=== PATIENT | female | born 1955 | race African-American/Black ===

== ENCOUNTER 2019-02-25 15:15 | Inpatient (IN) | payer OTHER ==
[2019-02-25 16:06] VITALS: BMI 26.0
--- NOTE | 2019-02-25 17:56 | HP ---
CIWA Score Nausea/Vomitin-No Nausea/No Vomiting Muscle Tremors: 4-Moderate,w/Arms Extend Anxiety: 2 Agitation: 1-Slight > Activity Paroxysmal Sweats: 2 Orientation: 0-Oriented Tacttile Disturbances: 1-Very Mild Itch/Numbness Auditory Disturbances: 0-None Visual Disturbances: 0-None Headache: 2-Mild CIWA-Ar Total Score: 12 - Admission Criteria OASAS Guidelines: Admission for Medically Managed Detox: Requires at least one of the followin. CIWA greater than 12 2. Seizures within the past 24 hours 3. Delirium tremens within the past 24 hours 4. Hallucinations within the past 24 hours 5. Acute intervention needed for co occurring medical disorder 6. Acute intervention needed for co occurring psychiatric disorder 7. Severe withdrawal that cannot be handled at a lower level of care (continued vomiting, continued diarrhea, abnormal vital signs) requiring intravenous medication and/or fluids 8. Admitting History and Physical - Admission History Source: Patient Limitations to Obtaining History: No Limitations - Past Medical History Cardiovascular: Yes: HTN Pulmonary: Yes: Asthma ...LMP: 01/14/00 Psych: Yes: Addictions - Past Surgical History Past Surgical History: Yes: - Smoking History Smoking history: Current every day smoker Have you smoked in the past 12 months: Yes Aproximately how many cigarettes per day: 20 - Alcohol/Substance Use Hx Alcohol Use: Yes History of Substance Use: reports: Cocaine, Heroin Admission [facility] Chief Complaint: alcohol abuse Allergies/Adverse Reactions: Allergies Allergy/AdvReac Type Severity Reaction Status Date / Time shellfish derived Allergy Severe Rash Verified 02/25/19 15:47 No Known Drug Allergies Allergy Verified 02/25/19 15:47 History of Present Illness: 63 y.o. F PMH asthma, HTN. Patient is in a methadone program at [facility] but has not picked up in 2 days. EtOH: daily use. Drinks 1 pint vodka daily. Last drink yesterday 1/2 pint vodka. Has been drinking heavily since age 25. Has never passed out from drinking or had a withdrawal seizure. Crack cocaine: daily use. smokes. Uses ~$100 / day. Has been using for 10 yrs. Heroin: Uses "now and again, 1 bag or so". Snorts; has used IV in the past but does not use IV anymore. Benzos: denies use although + in urine Cigarettes: daily, 7 cigarettes per day since age 18 PSH: C- sxn Social hx: homeless. Not currently working, on SSI All: NKDA. Food: shellfish Meds: norvasc, albuterol inhaler prn Exam Limitations: No Limitations - Ebola screening Have you traveled outside of the country in the last 21 days: No Have you had contact with anyone from an Ebola affected area: No Do you have a fever: No - Review of Systems Constitutional: Chills EENT: reports: No Symptoms Reported Respiratory: reports: No Symptoms reported Cardiac: reports: No Symptoms Reported GI: reports: No Symptoms Reported Musculoskeletal: reports: No Symptoms Reported Integumentary: reports: No Symptoms Reported Neuro: reports: No Symptoms reported Endocrine: reports: No Symptoms Reported Hematology: reports: No Symptoms Reported Psychiatric: reports: No Sypmtoms Reported, Mood/Affect Appropiate, Orientated x3 Patient History - Patient Medical History Hx Anemia: Yes (HX IN THE PAST) Hx Asthma: Yes Hx Chronic Obstructive Pulmonary Disease (COPD): No Hx Cancer: No Hx Cardiac Disorders: No Hx Congestive Heart Failure: No Hx Hypertension: Yes (on meds.) Hx Hypercholesterolemia: Yes (on med-LIPITOR IN THE PAST) Hx Pacemaker: No HX Cerebrovascular Accident: No Hx Seizures: No Hx Dementia: No Hx Diabetes: No Hx Gastrointestinal Disorders: No Hx Liver Disease: No Hx Genitourinary Disorders: No Hx Sexually Transmitted Disorders: No Hx Renal Disease (ESRD): No Hx Thyroid Disease: No Hx Human Immunodeficiency Virus (HIV): No (NEGATIVE HX) Hx Hepatitis C: No Hx Depression: No Hx Suicide Attempt: No Hx Bipolar Disorder: No Hx Schizophrenia: No - Patient Surgical History Past Surgical History: Yes Hx Neurologic Surgery: No Hx Cataract Extraction: No Hx Cardiac Surgery: No Hx Lung Surgery: No Hx Breast Surgery: No Hx Breast Biopsy: No Hx Abdominal Surgery: No Hx Appendectomy: No Hx Cholecystectomy: No Hx Genitourinary Surgery: No Hx Section: Yes (X 1 IN 1985) Hx Orthopedic Surgery: No Hx Hysterectomy: No Anesthesia Reaction: No - PPD History Date: 09/11/15 Results: 0 mm - Reproductive History Last Menstrual Period: 01/14/00 - Smoking Cessation Smoking history: Current every day smoker Have you smoked in the past 12 months: Yes Aproximately how many cigarettes per day: 7 Cigars Per Day: 0 Hx Chewing Tobacco Use: No Initiated information on smoking cessation: Yes 'Breaking Loose' booklet given: 02/25/19 - Substance & Tx. History Hx Alcohol Use: Yes Substance Use Type: Alcohol, Cocaine, Heroin, Opiates - Substances abused Alcohol Substance route: Oral Frequency: Daily Amount used: 1 pint vodka Age of first use: 14 Date of last use: 02/24/19 Cocaine Substance route: Smoking Frequency: Daily Amount used: $100 Age of first use: 22 Date of last use: 02/24/19 Crack Substance route: Inhalation Frequency: Daily Amount used: $100 Age of first use: 22 Date of last use: 02/24/19 Admission Physical Exam [facility] - Vital Signs Vital Signs: Vital Signs - 24 hr 02/25/19 02/25/19 15:59 16:54 Temperature 98.4 F 98.4 F Pulse Rate 66 66 Respiratory 18 18 Rate Blood Pressure 125/85 125/85 - Physical General Appearance: Yes: No Apparent Distress, Tremorous, Anxious HEENTM: Yes: Normal ENT Inspection, Normocephalic, Other (miosis) Respiratory: Yes: Lungs Clear, Normal Breath Sounds, No Respiratory Distress, No Accessory Muscle Use Neck: Yes: No masses,lesions,Nodules Cardiology: Yes: Regular Rhythm, Regular Rate, S1, S2 Abdominal: Yes: Normal Bowel Sounds, Non Tender, Soft Musculoskeletal: Yes: Within Normal Limits Extremities: Yes: Normal Inspection, Normal Range of Motion Neurological: Yes: Fully Oriented, Alert, Normal Mood/Affect Integumentary: Yes: Other (bruise to R knee) Lymphatic: Yes: Within Normal Limits - Diagnostic (1) Alcohol dependence with uncomplicated withdrawal Current Visit: No Status: Acute (2) Cocaine dependence Current Visit: No Status: Chronic Qualifiers: Substance use status: uncomplicated Qualified Code(s): F14.20 - Cocaine dependence, uncomplicated (3) Asthma Current Visit: No Status: Chronic Qualifiers: Asthma severity: mild intermittent Asthma complication type: with status asthmaticus (4) HTN (hypertension) Current Visit: No Status: Chronic Qualifiers: Hypertension type: essential hypertension Qualified Code(s): I10 - Essential (primary) hypertension Cleared for Admission [facility] - Detox or Rehab [facility] Level of Care: Medically Supervised Detox Regimen/Protocol: Librium Screened but not Admitted - Documentation of Visit Screened but not Admitted: No Breathalyzer - Breathalyzer Breathalyzer: 0 Urine Drug Screen - Test Device Lot number: [id number] Expiration date: 11/13/20 - Control Is test valid?: Yes - Results Drug screen NEGATIVE: No Urine drug screen results: KAMLESH-Cocaine, MTD-Methadone, BZO-Benzodiazepines Inpatient Rehab Admission - Rehab Decision to Admit Inpatient rehab admission?: No
--- NOTE | 2019-02-25 18:05 | PN ---
"Teaching Attending Note Name of Resident: Jade Del Toro ATTENDING PHYSICIAN STATEMENT I saw and evaluated the patient. I reviewed the resident's note and discussed the case with the resident. I agree with the resident's findings and plan as documented. SUBJECTIVE: 63 y.o. female here for etoh detox , reports 1 pint vodka daily since age 25 , denies w/d seizures, blackouts claims she has tremors if not drinking , latest use yesterday. cocaine : 100 $ /day via smoking . heroin : reports intermittent use currently , on MMTP latest dosed 2 days ago per pt, pending verification. benzo - denies use (see below) upon further inquiry states she was given rx for Librium @ [facility]. tobacco : 7 cigarettes/ day PMH asthma, HTN. PSH: C-sx OBJECTIVE: wnwd , drowsy , poor historian , awakened by verbal stimuli . This report was requested by: Madeline Montanez | Reference #: [id number] Others' Prescriptions Patient Name: Joellen Jones Date: 1955 Address: [place] [address] Sex: Female Rx Written Rx Dispensed Drug Quantity Days Supply Prescriber Name 02/20/2019 02/21/2019 chlordiazepoxide 25 mg capsule 8 2 Leo Zazueta 11/19/2018 11/19/2018 chlordiazepoxide 25 mg capsule 8 2 Leo Zazueta 07/31/2018 08/01/2018 chlordiazepoxide 25 mg capsule 8 2 Leo Zazueta Vital Signs - 24 hr 02/25/19 02/25/19 15:59 16:54 Temperature 98.4 F 98.4 F Pulse Rate 66 66 Respiratory 18 18 Rate Blood Pressure 125/85 125/85 ASSESSMENT AND PLAN: Alcohol use disorder - Librium taper Opioid dependence on agonist therapy - pending dose verification Cocaine dependence Nicotine dependence - smoking cessation counseling."
[2019-02-25] MEDS ORDERED: MENTHOL/PHENOL 1 EACH UD MM PRN (18:29)
[2019-02-25] MEDS ORDERED: MELATONIN 5 MG TABLETS PO PRN (18:29)
[2019-02-25] MEDS ORDERED: IBUPROFEN 400 MG TABLET (FP) PO PRN (18:29)
[2019-02-25] MEDS ORDERED: MAGNESIUM HYDROX 2400MG/30ML ORAL SUSPENSION 30 ML CUP PO PRN (18:29)
[2019-02-25] MEDS ORDERED: BISMUTH SUBSALICYLATE 524 MG/30 ML UD PO PRN (18:29)
[2019-02-25] MEDS ORDERED: MAG HYDROX/AL HYDROX/SIMETH 30 ML UNIT-DOSE CUP PO PRN (18:29)
[2019-02-25] MEDS ORDERED: chlordiazePOXIDE HCL 10 MG CAPSULE PO PRN (18:29)
[2019-02-25] MEDS ORDERED: MAGNESIUM CITRATE 300 ML BOTTLE PO PRN (18:29)
[2019-02-25] MEDS ORDERED: ACETAMINOPHEN 325 MG TABLET (FP) PO PRN ×2 (18:29)
[2019-02-25] MEDS ORDERED: ALBUTEROL SO4 0.083% IH SOL 2.5 MG/3 ML VIAL.NEB. NEB PRN (19:51)
[2019-02-25] MEDS: chlordiazePOXIDE HCL 25 MG CAPSULE PO SCH (20:54)
[2019-02-25] MEDS: METHOCARBAMOL 500 MG TABLET PO PRN (20:54)
[2019-02-25] MEDS: hydrOXYzine PAMOATE 25 MG CAPSULE (FP) PO PRN (20:59)
[2019-02-25] MEDS: THIAMINE HCL 100 MG TABLET (FP) PO SCH (22:26)
[2019-02-26] MEDS: chlordiazePOXIDE HCL 25 MG CAPSULE PO SCH ×4 (06:28→22:42)
[2019-02-26 09:45] LABS: HEMOGLOBIN 13.6 GM/dL (10.7-15.3); MCH 28.6 pg (25.7-33.7); MEAN PLT VOLUME 9.5 fl (7.5-11.1); PLATELET COUNT 250 K/MM3 (134-434); RBC 4.76 M/mm3 (3.60-5.2); RDW 15.3 % (11.6-15.6); WHITE BLOOD COUNT 4.3 K/mm3 (4.0-10.0)
[2019-02-26] MEDS ORDERED: METHADONE HCL 10 MG TABLET PO ONE (09:59)
[2019-02-26] MEDS ORDERED: LIDOCAINE 5% TOPICAL PATCH TP ONE (10:07)
[2019-02-26] MEDS ORDERED: ALBUTEROL SO4 8 GM HFA INHALER IH PRN (10:09)
[2019-02-26] MEDS ORDERED: IBUPROFEN 400 MG TABLET (FP) PO PRN (10:09)
[2019-02-26 10:24] LABS: ALBUMIN 3.4 g/dl (3.4-5.0); BILIRUBIN,TOTAL 0.6 mg/dL (0.2-1); BLOOD UREA NITROGEN 14.8 mg/dL (7-18); CALCIUM 9.3 mg/dL (8.5-10.1); CREATININE 0.8 mg/dL (0.55-1.3); POTASSIUM 4.1 mmol/L (3.5-5.1); TOT PROT 7.6 g/dl (6.4-8.2)
[2019-02-26] MEDS ORDERED: METHADONE 80 MG, METHADONE 10 MG, METHADONE 5 MG PO ONE (10:35)
[2019-02-26] MEDS ORDERED: METHADONE HCL 10 MG TABLET ONE (10:42)
[2019-02-26] MEDS: PRENATAL VITAMINS W/ FOLIC ACID TABLET (FP) PO SCH (10:42)
[2019-02-26] MEDS ORDERED: METHADONE HCL 5 MG TABLET ONE (10:43)
[2019-02-26] MEDS ORDERED: METHADONE HCL 40 MG DISPERSABLE TABLET ONE (10:43)
[2019-02-26] MEDS: METHOCARBAMOL 500 MG TABLET PO PRN (10:44)
--- NOTE | 2019-02-26 13:04 | PN ---
S CIWA - CIWA Score Nausea/Vomitin-No Nausea/No Vomiting Muscle Tremors: 4-Moderate,w/Arms Extend Anxiety: 4-Mod. Anxious/Guarded Agitation: 4-Moderately Restless Paroxysmal Sweats: 3 Orientation: 0-Oriented Tacttile Disturbances: 0-None Auditory Disturbances: 0-None Visual Disturbances: 0-None Headache: 1-Very Mild CIWA-Ar Total Score: 16 BHS Progress Note (SOAP) Subjective: sweats shakes interrupted sleep irritable anxiety body aches a two day detox does not work for me and two days is not enough for the amount of alcohol i drink Objective: 02/26/19 13:00 Vital Signs Temperature 98.4 F 02/26/19 09:23 Pulse Rate 71 02/26/19 09:23 Respiratory Rate 18 02/26/19 09:23 Blood Pressure 121/71 02/26/19 09:23 O2 Sat by Pulse Oximetry (%) Laboratory Tests 02/26/19 02/26/19 02/26/19 07:10 07:10 07:10 WBC 4.3 RBC 4.76 Hgb 13.6 Hct 40.0 MCV 84.0 MCH 28.6 MCHC 34.0 RDW 15.3 Plt Count 250 MPV 9.5 Sodium 140 Potassium 4.1 Chloride 106 Carbon Dioxide 30 Anion Gap 4 L BUN 14.8 Creatinine 0.8 Est GFR (CKD-EPI)AfAm 92.22 Est GFR (CKD-EPI)NonAf 79.57 Random Glucose 101 Calcium 9.3 Total Bilirubin 0.6 AST 41 H ALT 41 Alkaline Phosphatase 101 Total Protein 7.6 Albumin 3.4 RPR Titer Nonreactive labs noted aaox3 ambulating no acute distress Assessment: 02/26/19 13:03 withdrawals noted Plan: d/c two day taper and increased librium taper appropriately. increase fluids
[2019-02-26] MEDS: chlordiazePOXIDE HCL 25 MG CAPSULE PO PRN (18:52)
[2019-02-26] MEDS: THIAMINE HCL 100 MG TABLET (FP) PO SCH (22:41)
[2019-02-26] MEDS: LIDOCAINE PATCH REMOVAL MC SCH (22:41)
[2019-02-26] MEDS: hydrOXYzine PAMOATE 25 MG CAPSULE (FP) PO PRN (22:45)
[2019-02-27] MEDS: chlordiazePOXIDE HCL 25 MG CAPSULE PO PRN (03:03)
[2019-02-27] MEDS ORDERED: chlordiazePOXIDE HCL 10 MG CAPSULE PO SCH (05:00)
[2019-02-27] MEDS: chlordiazePOXIDE HCL 25 MG CAPSULE PO SCH ×4 (05:16→22:35)
[2019-02-27] MEDS ORDERED: METHADONE HCL 10 MG TABLET ONE ×2 (05:17→05:21)
[2019-02-27] MEDS: METHADONE 80 MG, METHADONE 10 MG, METHADONE 5 MG PO SCH (05:18)
[2019-02-27] MEDS ORDERED: METHADONE HCL 40 MG DISPERSABLE TABLET ONE ×2 (05:18→05:21)
[2019-02-27] MEDS ORDERED: METHADONE HCL 5 MG TABLET ONE (05:22)
[2019-02-27] MEDS ORDERED: METHADONE HCL 10 MG TABLET PO SCH (06:00)
[2019-02-27] MEDS: PRENATAL VITAMINS W/ FOLIC ACID TABLET (FP) PO SCH (10:30)
[2019-02-27] MEDS: METHOCARBAMOL 500 MG TABLET PO PRN (10:31)
[2019-02-27] MEDS: IBUPROFEN 400 MG TABLET (FP) PO PRN (10:34)
--- NOTE | 2019-02-27 12:42 | PN ---
S CIWA - CIWA Score Nausea/Vomitin-No Nausea/No Vomiting Muscle Tremors: 3 Anxiety: 1-Mildly Anxious Agitation: 2 Paroxysmal Sweats: 2 Orientation: 0-Oriented Tacttile Disturbances: 0-None Auditory Disturbances: 0-None Visual Disturbances: 0-None Headache: 0-None Present CIWA-Ar Total Score: 8 S Progress Note (SOAP) Subjective: sweats low back pain interrupted sleep agitation Objective: 02/27/19 12:41 Vital Signs Temperature 98.1 F 02/27/19 09:58 Pulse Rate 60 02/27/19 09:58 Respiratory Rate 18 02/27/19 09:58 Blood Pressure 130/70 02/27/19 09:58 O2 Sat by Pulse Oximetry (%) Laboratory Tests 02/26/19 02/26/19 02/26/19 07:10 07:10 07:10 WBC 4.3 RBC 4.76 Hgb 13.6 Hct 40.0 MCV 84.0 MCH 28.6 MCHC 34.0 RDW 15.3 Plt Count 250 MPV 9.5 Sodium 140 Potassium 4.1 Chloride 106 Carbon Dioxide 30 Anion Gap 4 L BUN 14.8 Creatinine 0.8 Est GFR (CKD-EPI)AfAm 92.22 Est GFR (CKD-EPI)NonAf 79.57 Random Glucose 101 Calcium 9.3 Total Bilirubin 0.6 AST 41 H ALT 41 Alkaline Phosphatase 101 Total Protein 7.6 Albumin 3.4 RPR Titer Nonreactive labs noted aaox3 ambulating no acute distress Assessment: 02/27/19 12:42 withdrawals Plan: continue detox increase fluids
[2019-02-27] MEDS: THIAMINE HCL 100 MG TABLET (FP) PO SCH (22:35)
[2019-02-27] MEDS: LIDOCAINE PATCH REMOVAL MC SCH (22:36)
[2019-02-28] MEDS ORDERED: chlordiazePOXIDE HCL 25 MG CAPSULE PO SCH (05:00)
[2019-02-28] MEDS ORDERED: METHADONE HCL 10 MG TABLET PO ONE (06:00)
[2019-02-28] MEDS ORDERED: METHADONE HCL 40 MG DISPERSABLE TABLET ONE (06:41)
[2019-02-28] MEDS ORDERED: METHADONE HCL 10 MG TABLET ONE (06:41)
[2019-02-28] MEDS ORDERED: METHADONE HCL 5 MG TABLET ONE (06:42)
[2019-02-28] MEDS: METHADONE 80 MG, METHADONE 10 MG, METHADONE 5 MG PO SCH (06:43)
[2019-02-28] MEDS: METHOCARBAMOL 500 MG TABLET PO PRN ×3 (06:43→22:42)
[2019-02-28] MEDS ORDERED: chlordiazePOXIDE 5 MG CAPSULE PO SCH (09:58)
[2019-02-28] MEDS: PRENATAL VITAMINS W/ FOLIC ACID TABLET (FP) PO SCH (10:36)
--- NOTE | 2019-02-28 13:31 | PN ---
S CIWA - CIWA Score Nausea/Vomitin-No Nausea/No Vomiting Muscle Tremors: 3 Anxiety: 1-Mildly Anxious Agitation: 0-Normal Activity Paroxysmal Sweats: No Perspiration Orientation: 0-Oriented Tacttile Disturbances: 0-None Auditory Disturbances: 0-None Visual Disturbances: 0-None Headache: 0-None Present CIWA-Ar Total Score: 4 BHS Progress Note (SOAP) Subjective: tired interrupted sleep Objective: 02/28/19 13:30 Vital Signs Temperature 98.4 F 02/28/19 10:00 Pulse Rate 79 02/28/19 10:00 Respiratory Rate 18 02/28/19 10:00 Blood Pressure 118/66 02/28/19 10:00 O2 Sat by Pulse Oximetry (%) aaox3 ambulating no acute distress Assessment: 02/28/19 13:32 mild withdrawals Plan: increase fluids modified librium taper
[2019-02-28] MEDS: THIAMINE HCL 100 MG TABLET (FP) PO SCH (22:43)
[2019-02-28] MEDS: IBUPROFEN 400 MG TABLET (FP) PO PRN (22:45)
[2019-03-01] MEDS ORDERED: chlordiazePOXIDE HCL 10 MG CAPSULE PO PRN
[2019-03-01] MEDS ORDERED: METHADONE HCL 10 MG TABLET ONE ×2 (04:30→06:08)
[2019-03-01] MEDS ORDERED: METHADONE HCL 40 MG DISPERSABLE TABLET ONE ×2 (04:31→06:08)
[2019-03-01] MEDS ORDERED: METHADONE HCL 5 MG TABLET ONE ×2 (04:31→06:09)
[2019-03-01] MEDS ORDERED: METHADONE HCL 10 MG TABLET PO ONE (06:00)
[2019-03-01] MEDS ORDERED: METHADONE 80 MG, METHADONE 20 MG, METHADONE 5 MG PO SCH (06:00)
[2019-03-01] MEDS ORDERED: METHADONE HCL 10 MG TABLET PO SCH (06:00)
[2019-03-01] MEDS: chlordiazePOXIDE HCL 10 MG CAPSULE PO SCH ×3 (06:12→17:25)
[2019-03-01] MEDS: METHOCARBAMOL 500 MG TABLET PO PRN ×2 (10:27→18:19)
[2019-03-01] MEDS: PRENATAL VITAMINS W/ FOLIC ACID TABLET (FP) PO SCH (10:27)
[2019-03-01] MEDS: LIDOCAINE 5% TOPICAL PATCH TP SCH (12:26)
--- NOTE | 2019-03-01 15:30 | PN ---
S CIWA - CIWA Score Nausea/Vomitin-No Nausea/No Vomiting Muscle Tremors: None Anxiety: 3 Agitation: 2 Paroxysmal Sweats: No Perspiration Orientation: 2-Disoriented Date<2 days Tacttile Disturbances: 0-None Auditory Disturbances: 0-None Visual Disturbances: 2-Mild Sensitivity Headache: 0-None Present CIWA-Ar Total Score: 9 BHS Progress Note (SOAP) Subjective: Anxious, Body Aches, Fatigue. Objective: PATIENT A & O X 2 (UNCERTAIN ABOUT CURRENT DAY / DATE). PATIENT OBSERVED AMBULATING ON UNIT. NO ACUTE DISTRESS. 03/01/19 15:29 Vital Signs Temperature 97.3 F L 03/01/19 14:54 Pulse Rate 70 03/01/19 14:54 Respiratory Rate 18 03/01/19 14:54 Blood Pressure 130/87 03/01/19 14:54 O2 Sat by Pulse Oximetry (%) Laboratory Tests 02/26/19 02/26/19 02/26/19 07:10 07:10 07:10 WBC 4.3 RBC 4.76 Hgb 13.6 Hct 40.0 MCV 84.0 MCH 28.6 MCHC 34.0 RDW 15.3 Plt Count 250 MPV 9.5 Sodium 140 Potassium 4.1 Chloride 106 Carbon Dioxide 30 Anion Gap 4 L BUN 14.8 Creatinine 0.8 Est GFR (CKD-EPI)AfAm 92.22 Est GFR (CKD-EPI)NonAf 79.57 Random Glucose 101 Calcium 9.3 Total Bilirubin 0.6 AST 41 H ALT 41 Alkaline Phosphatase 101 Total Protein 7.6 Albumin 3.4 RPR Titer Nonreactive LABS NOTED. Assessment: 03/01/19 15:29 WITHDRAWAL SYMPTOMS. Plan: CONTINUE DETOX. INCREASE DAILY ORAL WATER INTAKE. TOPICAL LIDODERM PATCH FOR PAIN OF LEFT KNEE.
[2019-03-01] MEDS: THIAMINE HCL 100 MG TABLET (FP) PO SCH (22:39)
[2019-03-01] MEDS: LIDOCAINE PATCH REMOVAL MC SCH (23:23)
[2019-03-02] MEDS: chlordiazePOXIDE HCL 10 MG CAPSULE PO SCH ×2 (05:10→17:37)
[2019-03-02] MEDS: PRENATAL VITAMINS W/ FOLIC ACID TABLET (FP) PO SCH (10:20)
[2019-03-02] MEDS: LIDOCAINE 5% TOPICAL PATCH TP SCH ×2 (10:20→11:44)
[2019-03-02] MEDS ORDERED: cloNIDine HCL 0.1 MG TABLET PO PRN (10:43)
[2019-03-02] MEDS: METHOCARBAMOL 500 MG TABLET PO PRN ×3 (11:39→22:48)
--- NOTE | 2019-03-02 16:35 | PN ---
[facility] CIWA - CIWA Score Nausea/Vomitin-No Nausea/No Vomiting Muscle Tremors: None Anxiety: 2 Agitation: 2 Paroxysmal Sweats: 2 Orientation: 0-Oriented Tacttile Disturbances: 0-None Auditory Disturbances: 0-None Visual Disturbances: 0-None Headache: 0-None Present CIWA-Ar Total Score: 6 BHS Progress Note (SOAP) Subjective: Tremor, chills, sweating, left knee pain, back pain (chronic, has sciatica), interrupted sleep Objective: 03/02/19 16:31 Last Vital Signs Temp Pulse Resp BP Pulse Ox 97.7 F 67 18 131/85 03/02/19 11:30 03/02/19 11:30 03/02/19 11:30 03/02/19 11:30 Elevated b/p: has htn, on medication Laboratory Tests 02/26/19 02/26/19 02/26/19 07:10 07:10 07:10 WBC 4.3 RBC 4.76 Hgb 13.6 Hct 40.0 MCV 84.0 MCH 28.6 MCHC 34.0 RDW 15.3 Plt Count 250 MPV 9.5 Sodium 140 Potassium 4.1 Chloride 106 Carbon Dioxide 30 Anion Gap 4 L BUN 14.8 Creatinine 0.8 Est GFR (CKD-EPI)AfAm 92.22 Est GFR (CKD-EPI)NonAf 79.57 Random Glucose 101 Calcium 9.3 Total Bilirubin 0.6 AST 41 H ALT 41 Alkaline Phosphatase 101 Total Protein 7.6 Albumin 3.4 RPR Titer Nonreactive Labs reviewed Assessment: 03/02/19 16:32 Withdrawal sxs Plan: Continue detox Encouraged PO water intake Lidocaine patch to left knee for knee pain, continue lidocaine patch to back for back pain Scheduled for discharge tomorrow HTN: resume clonidine prn, patient stated she takes it at home, she is aware it will only be ordered prn in which she agreed, patient previously on norvasc as well for htn
[2019-03-02] MEDS ORDERED: LIDOCAINE PATCH REMOVAL MC SCH (22:00)
[2019-03-02] MEDS: THIAMINE HCL 100 MG TABLET (FP) PO SCH (22:48)
[2019-03-02] MEDS: IBUPROFEN 400 MG TABLET (FP) PO PRN (22:48)
[2019-03-02] MEDS: LIDOCAINE PATCH REMOVAL MC SCH (23:10)
[2019-03-03] MEDS ORDERED: METHADONE HCL 5 MG TABLET ONE (04:51)
[2019-03-03] MEDS ORDERED: METHADONE HCL 40 MG DISPERSABLE TABLET ONE (04:51)
[2019-03-03] MEDS ORDERED: METHADONE HCL 10 MG TABLET ONE (04:51)
[2019-03-03] MEDS ORDERED: chlordiazePOXIDE HCL 10 MG CAPSULE PO ONE (05:00)
[2019-03-03] MEDS ORDERED: METHADONE 80 MG, METHADONE 30 MG, METHADONE 5 MG PO SCH (06:00)
[2019-03-03] MEDS ORDERED: METHADONE HCL 10 MG TABLET PO SCH (06:00)
[2019-03-03] MEDS ORDERED: METHADONE HCL 40 MG DISPERSABLE TABLET PO SCH (06:00)
--- NOTE | 2019-03-03 10:07 | DS ---
[facility] Detox Discharge Summary Admission Date: 02/25/19 Discharge Date: 03/03/19 - History Present History: Alcohol Dependence, MMTP - Physical Exam Results Vital Signs: Vital Signs Temperature 97.7 F 03/03/19 09:31 Pulse Rate 63 03/03/19 09:31 Respiratory Rate 16 03/03/19 09:31 Blood Pressure 100/71 03/03/19 09:31 O2 Sat by Pulse Oximetry (%) Pertinent Admission Physical Exam Findings: pt arrived in withdrawals Vital Signs Temperature 97.7 F 03/03/19 09:31 Pulse Rate 63 03/03/19 09:31 Respiratory Rate 16 03/03/19 09:31 Blood Pressure 100/71 03/03/19 09:31 O2 Sat by Pulse Oximetry (%) Laboratory Tests 02/26/19 02/26/19 02/26/19 07:10 07:10 07:10 WBC 4.3 RBC 4.76 Hgb 13.6 Hct 40.0 MCV 84.0 MCH 28.6 MCHC 34.0 RDW 15.3 Plt Count 250 MPV 9.5 Sodium 140 Potassium 4.1 Chloride 106 Carbon Dioxide 30 Anion Gap 4 L BUN 14.8 Creatinine 0.8 Est GFR (CKD-EPI)AfAm 92.22 Est GFR (CKD-EPI)NonAf 79.57 Random Glucose 101 Calcium 9.3 Total Bilirubin 0.6 AST 41 H ALT 41 Alkaline Phosphatase 101 Total Protein 7.6 Albumin 3.4 RPR Titer Nonreactive today pt is aaox3 ambulating no acute distress - Treatment Hospital Course: Detox Protocol Followed, Detoxed Safely, Responded well, Discharged Condition Good, Rehab Referral Accepted Patient has Accepted a Rehab Referral to: pt referred to rehab - Medication Discharge Medications: Ambulatory Orders Salmeterol/Fluticasone [Advair 500Mcg/50Mcg -] 1 inh IH BID #1 inh 06/23/13 Esomeprazole Mag Trihydrate [Nexium] 20 mg PO DAILY 09/09/15 Albuterol Sulfate Inhaler - [Ventolin HFA Inhaler -] 0 puff IH Q4HPO PRN #1 inhaler 11/17/15 Amlodipine Besylate [Norvasc -] 10 mg PO DAILY 02/25/19 cloNIDine HCL [Catapres -] 0.1 mg PO DAILY 02/25/19 - Diagnosis (1) Alcohol dependence with uncomplicated withdrawal Current Visit: No Status: Acute (2) Nicotine dependence Current Visit: No Status: Acute Qualifiers: Nicotine product type: cigarettes Substance use status: uncomplicated Qualified Code(s): F17.210 - Nicotine dependence, cigarettes, uncomplicated (3) Opioid dependence on agonist therapy Current Visit: No Status: Acute (4) Uncomplicated sedative, hypnotic or anxiolytic withdrawal Current Visit: No Status: Acute (5) Alcohol dependence Current Visit: Yes Status: Chronic Qualifiers: Substance use status: uncomplicated Qualified Code(s): F10.20 - Alcohol dependence, uncomplicated (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: No Status: Chronic (8) Asthma Current Visit: No Status: Chronic Qualifiers: Asthma severity: mild intermittent Asthma complication type: with status asthmaticus (9) Cocaine dependence Current Visit: No Status: Chronic Qualifiers: Substance use status: uncomplicated Qualified Code(s): F14.20 - Cocaine dependence, uncomplicated (10) Gastroesophageal reflux disease Current Visit: No Status: Chronic Qualifiers: Esophagitis presence: without esophagitis Qualified Code(s): K21.9 - Gastro -esophageal reflux disease without esophagitis (11) HTN (hypertension) Current Visit: No Status: Chronic Qualifiers: Hypertension type: essential hypertension Qualified Code(s): I10 - Essential (primary) hypertension (12) Hypercholesterolemia Current Visit: No Status: Chronic (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
[2019-03-03] MEDS: PRENATAL VITAMINS W/ FOLIC ACID TABLET (FP) PO SCH (10:36)
[2019-03-03] MEDS: LIDOCAINE 5% TOPICAL PATCH TP SCH (10:38)
[2019-03-03 13:36] VITALS: BP 110/73; PULSE 71; TEMP 98.2
== END 2019-03-03 03:55 | disposition home or self-care (01) | DRG 897 ==
LOC: YASAS 15:15 → Y6N 20:19
PROVIDERS: ADMIT Allergy & Immunology; ATTEND Allergy & Immunology
PROC: HZ2ZZZZ Detoxification Services for Substance Abuse Treatment (ICD-10-PCS; principal; 2019-02-25)
DX: F10.230 Alcohol dependence with withdrawal, uncomplicated (principal); F11.20 Opioid dependence, uncomplicated; F14.20 Cocaine dependence, uncomplicated; F19.280 Other psychoactive substance dependence with psychoactive substance-induced anxiety disorder; F19.282 Other psychoactive substance dependence with psychoactive substance-induced sleep disorder; J45.22 Mild intermittent asthma with status asthmaticus; F13.230 Sedative, hypnotic or anxiolytic dependence with withdrawal, uncomplicated; F17.210 Nicotine dependence, cigarettes, uncomplicated; I10 Essential (primary) hypertension; K21.9 Gastro-esophageal reflux disease without esophagitis; E78.00 Pure hypercholesterolemia, unspecified; M17.11 Unilateral primary osteoarthritis, right knee; Z86.2 Personal history of diseases of the blood and blood-forming organs and certain disorders involving the immune mechanism; Z91.013 Allergy to seafood; Z59.0 Homelessness
CPT/HCPCS: 36415; 80053; 85027; 86593

== ENCOUNTER 2019-11-10 10:30 | Inpatient (IN) | payer OTHER ==
--- NOTE | 2019-11-10 11:11 | BHS.RME ---
Substance Use & Tx History - Substance Use History Barbiturate Substance amount: 1.5 pints vodka Frequency of use: Daily Substance route: Oral Date of Last Use: 11/10/19 (4am) Cocaine-Crack Substance amount: $100 Frequency of use: Daily Substance route: Smoking Date of Last Use: 11/09/19 Nicotine Substance amount: 1/2 pack Frequency of use: Daily Substance route: Smoking Date of Last Use: 11/09/19 - Last Treatment Date of last treatment: 02/25/19-03/03/19 Treatment type: Substance Use Disorder (JOAO) Where was last treatment: Detox Physical/Psych/Mental Status - Behavior General Behavior: Decreased activity Eye Contact: Normal - Cooperativeness Cooperativeness: Cooperative - Thinking Thought Processes: Tight, Logical, Goal Directed - Physical Health Problems Is patient presently having any pain?: No Does patient presently have any injuries (include location): No Does patient currently have a fever: No Is patient : No CIWA Nausea/Vomitin-No Nausea/No Vomiting Muscle Tremors: 3 Anxiety: 2 Agitation: 2 Paroxysmal Sweats: 4-Forehead w/Sweat Beads Orientation: 0-Oriented Tacttile Disturbances: 2-Mild Itch/Numbness/Burn Auditory Disturbances: 0-None Visual Disturbances: 0-None Headache: 2-Mild CIWA-Ar Total Score: 15
--- NOTE | 2019-11-10 12:10 | HP ---
CIWA Score Nausea/Vomitin-No Nausea/No Vomiting Muscle Tremors: 3 Anxiety: 2 Agitation: 2 Paroxysmal Sweats: 4-Forehead w/Sweat Beads Orientation: 0-Oriented Tacttile Disturbances: 2-Mild Itch/Numbness/Burn Auditory Disturbances: 0-None Visual Disturbances: 0-None Headache: 2-Mild CIWA-Ar Total Score: 15 - Admission Criteria OASAS Guidelines: Admission for Medically Managed Detox: Requires at least one of the followin. CIWA greater than 12 2. Seizures within the past 24 hours 3. Delirium tremens within the past 24 hours 4. Hallucinations within the past 24 hours 5. Acute intervention needed for co occurring medical disorder 6. Acute intervention needed for co occurring psychiatric disorder 7. Severe withdrawal that cannot be handled at a lower level of care (continued vomiting, continued diarrhea, abnormal vital signs) requiring intravenous medication and/or fluids 8. Admitting History and Physical - Admission Chief Complaint: " I need to go to detox again from alcohol and crack." History of Present Illness: 64 year old female with history of alcohol dependence with withdrawal. She was last at [facility] from 02/25/10-03/03/19 when she completed detox and was discharged for aftercare. However, she relapsed immediately thereafter. Substance Use & Tx History - Substance Use History Barbiturate Substance amount: 1.5 pints vodka Frequency of use: Daily Substance route: Oral Date of Last Use: 11/10/19 (4am) Cocaine-Crack Substance amount: $100 Frequency of use: Daily Substance route: Smoking Date of Last Use: 11/09/19 Nicotine Substance amount: 1/2 pack Frequency of use: Daily Substance route: Smoking Date of Last Use: 11/09/19 PMH: Asthma, HTN Psurg: C/S x1 Psych: None She is homeless and living on the streets. She has no legal problems pending. Urine Tox: KAMLESH, MTD. 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 History Source: Patient Limitations to Obtaining History: No Limitations - Past Medical History Cardiovascular: Yes: HTN Pulmonary: Yes: Asthma ...LMP: 01/14/00 Psych: Yes: Addictions - Past Surgical History Past Surgical History: Yes: - Smoking History Smoking history: Current every day smoker Have you smoked in the past 12 months: Yes Aproximately how many cigarettes per day: 7 - Alcohol/Substance Use Hx Alcohol Use: Yes History of Substance Use: reports: Cocaine - Social History Usual Living Arrangement: Yes: Alone Do you think of yourself as: Straight/Heterosexual ADL: Independent Occupation: unemployed History of Recent Travel: No Admission [facility] Allergies/Adverse Reactions: Allergies Allergy/AdvReac Type Severity Reaction Status Date / Time shellfish derived Allergy Severe Rash Verified 11/10/19 12:03 No Known Drug Allergies Allergy Verified 11/10/19 12:03 Exam Limitations: No Limitations - Ebola screening Have you traveled outside of the country in the last 21 days: No Have you had contact with anyone from an Ebola affected area: No Have you been sick,other than usual withdrawal symptoms: No Do you have a fever: No - Review of Systems Constitutional: Diaphoresis, Unintentional Wgt. Loss EENT: reports: No Symptoms Reported Respiratory: reports: No Symptoms reported Cardiac: reports: No Symptoms Reported GI: reports: No Symptoms Reported : reports: No Symptoms Reported Musculoskeletal: reports: No Symptoms Reported Integumentary: reports: No Symptoms Reported Neuro: reports: No Symptoms reported Endocrine: reports: No Symptoms Reported Hematology: reports: No Symptoms Reported Psychiatric: reports: Judgement Intact, Mood/Affect Appropiate, Orientated x3, Agitated, Anxious Other Systems: Reviewed and Negative Patient History - Patient Medical History Hx Anemia: Yes (HX IN THE PAST) Hx Asthma: Yes Hx Chronic Obstructive Pulmonary Disease (COPD): No Hx Cancer: No Hx Cardiac Disorders: No Hx Congestive Heart Failure: No Hx Hypertension: Yes (on meds.) Hx Hypercholesterolemia: Yes (on med-LIPITOR IN THE PAST) Hx Pacemaker: No HX Cerebrovascular Accident: No Hx Seizures: No Hx Dementia: No Hx Diabetes: No Hx Gastrointestinal Disorders: No Hx Liver Disease: No Hx Genitourinary Disorders: No Hx Sexually Transmitted Disorders: No Hx Renal Disease (ESRD): No Hx Thyroid Disease: No Hx Human Immunodeficiency Virus (HIV): No (NEGATIVE HX) Hx Hepatitis C: No Hx Depression: Yes Hx Suicide Attempt: No Hx Bipolar Disorder: No Hx Schizophrenia: No - Patient Surgical History Past Surgical History: Yes Hx Neurologic Surgery: No Hx Cataract Extraction: No Hx Cardiac Surgery: No Hx Lung Surgery: No Hx Breast Surgery: No Hx Breast Biopsy: No Hx Abdominal Surgery: No Hx Appendectomy: No Hx Cholecystectomy: No Hx Genitourinary Surgery: No Hx Section: Yes (X 1 IN 1985) Hx Orthopedic Surgery: No Hx Hysterectomy: No Anesthesia Reaction: No - PPD History Previous Implant?: Yes Documented Results: Negative w/proof Implanted On Prior [facility] Admission?: Yes Date: 09/11/15 Results: 0 mm PPD to be Administered?: Yes - Reproductive History Last Menstrual Period: 01/14/00 - Smoking Cessation Smoking history: Current every day smoker Have you smoked in the past 12 months: Yes Aproximately how many cigarettes per day: 10 Cigars Per Day: 0 Hx Chewing Tobacco Use: No Initiated information on smoking cessation: Yes 'Breaking Loose' booklet given: 11/10/19 - Substances abused Alcohol Substance route: Oral Amount used: 1.5 pints vodka Age of first use: 16 Date of last use: 11/10/19 (4am) Crack Substance route: Smoking Frequency: Daily Amount used: $100 Age of first use: 32 Date of last use: 11/09/19 Admission Physical Exam [facility] - Physical General Appearance: Yes: Mild Distress, Thin, Tremorous, Irritable, Sweating, Anxious HEENTM: Yes: EOMI, Hearing grossly Normal, Normal ENT Inspection, Normocephalic, Normal Voice, TARUN, Pharynx Normal, Tm's normal Respiratory: Yes: Chest Non-Tender, Lungs Clear, Normal Breath Sounds, No Respiratory Distress, No Accessory Muscle Use Neck: Yes: No masses,lesions,Nodules, Supple, Trachea in good position Breast: Yes: Breast Exam Deferred Cardiology: Yes: Regular Rhythm, Regular Rate, S1, S2 Abdominal: Yes: Normal Bowel Sounds, Non Tender, Flat, Soft Genitourinary: Yes: Within Normal Limits Back: Yes: Normal Inspection Musculoskeletal: Yes: full range of Motion, Gait Steady, Pelvis Stable Extremities: Yes: Normal Capillary Refill, Normal Inspection, Normal Range of Motion, Non-Tender Neurological: Yes: in store marketing representative II-XII NML intact, Fully Oriented, Alert, Motor Strength 5/5, Normal Mood/Affect, Normal Response Integumentary: Yes: Normal Color, Dry, Warm Lymphatic: Yes: Within Normal Limits - Diagnostic (1) Alcohol dependence with uncomplicated withdrawal Current Visit: Yes Status: Acute (2) Nicotine dependence Current Visit: Yes Status: Acute Qualifiers: Nicotine product type: cigarettes Substance use status: uncomplicated Qualified Code(s): F17.210 - Nicotine dependence, cigarettes, uncomplicated (3) Opioid dependence on agonist therapy Current Visit: Yes Status: Acute (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 Visit: Yes Status: Chronic (6) Asthma Current Visit: Yes Status: Chronic Qualifiers: Asthma severity: mild intermittent Asthma complication type: with status asthmaticus (7) Cocaine dependence Current Visit: Yes Status: Chronic Qualifiers: Substance use status: uncomplicated Qualified Code(s): F14.20 - Cocaine dependence, uncomplicated (8) Gastroesophageal reflux disease Current Visit: Yes Status: Chronic Qualifiers: Esophagitis presence: without esophagitis Qualified Code(s): K21.9 - Gastro-esophageal reflux disease without esophagitis (9) HTN (hypertension) Current Visit: Yes Status: Chronic Qualifiers: Hypertension type: essential hypertension Qualified Code(s): I10 - Essential (primary) hypertension (10) Hypercholesterolemia Current Visit: Yes Status: Chronic (11) Osteoarthritis Current Visit: Yes Status: Chronic Qualifiers: Osteoarthritis location: knee Osteoarthritis type: primary Laterality: right Qualified Code(s): M17.11 - Unilateral primary osteoarthritis, right knee Cleared for Admission [facility] - Detox or Rehab [facility] Level of Care: Medically Managed Detox Regimen/Protocol: Librium Claeared for Rehab Admission: No Screened but not Admitted - Documentation of Visit Screened but not Admitted: No Breathalyzer - Breathalyzer Breathalyzer: 0 Urine Drug Screen - Test Device Lot number: [id number] Expiration date: 11/17/21 - Control Is test valid?: Yes - Results Drug screen NEGATIVE: No Urine drug screen results: KAMLESH-Cocaine, MTD-Methadone Inpatient Rehab Admission - Rehab Decision to Admit Inpatient rehab admission?: No
[2019-11-10] MEDS ORDERED: MAG HYDROX/AL HYDROX/SIMETH 30 ML UNIT-DOSE CUP PO PRN (12:19)
[2019-11-10] MEDS ORDERED: IBUPROFEN 400 MG TABLET (FP) PO PRN (12:19)
[2019-11-10] MEDS ORDERED: MAGNESIUM HYDROX 2400MG/30ML ORAL SUSPENSION 30 ML CUP PO PRN (12:19)
[2019-11-10] MEDS ORDERED: BISMUTH SUBSALICYLATE 262 MG/15 ML BTL PO PRN (12:19)
[2019-11-10] MEDS ORDERED: ONDANSETRON *ODT* 4 MG TABLET SL ONE (12:19)
[2019-11-10] MEDS ORDERED: MAGNESIUM CITRATE 300 ML BOTTLE PO PRN (12:19)
[2019-11-10] MEDS ORDERED: MENTHOL/PHENOL 1 EACH UD MM PRN (12:19)
[2019-11-10] MEDS ORDERED: METHOCARBAMOL 500 MG TABLET PO PRN (12:19)
[2019-11-10] MEDS ORDERED: ACETAMINOPHEN 325 MG TABLET (FP) PO PRN (12:19)
[2019-11-10] MEDS ORDERED: ALBUTEROL SO4 HFA INHALER IH PRN (12:21)
[2019-11-10 12:35] VITALS: BMI 26.5
[2019-11-10] MEDS: chlordiazePOXIDE HCL 25 MG CAPSULE PO SCH ×3 (14:18→23:08)
[2019-11-10] MEDS: NICOTINE 7 MG/24 HOURS TOPICAL PATCH TD SCH (14:18)
[2019-11-10] MEDS: PRENATAL VITAMINS W/ FOLIC ACID TABLET (FP) PO SCH (14:19)
[2019-11-10] MEDS: hydrOXYzine PAMOATE 25 MG CAPSULE (FP) PO SCH ×3 (14:19→23:17)
[2019-11-10 16:44] LABS: HEMATOCRIT 35.5 % (32.4-45.2); HEMOGLOBIN 12.2 GM/dL (10.7-15.3); MCH 29.3 pg (25.7-33.7); MCHC 34.4 g/dl (32.0-36.0); MEAN PLT VOLUME 10.1 fl (7.5-11.1); PLATELET COUNT 204 K/MM3 (134-434); RBC 4.17 M/mm3 (3.60-5.2); RDW 15.2 % (11.6-15.6); WHITE BLOOD COUNT 4.1 K/mm3 (4.0-10.0)
[2019-11-10 16:49] LABS: ALBUMIN 3.2 g/dl (3.4-5.0); BILIRUBIN,TOTAL 0.5 mg/dL (0.2-1); BLOOD UREA NITROGEN 11.5 mg/dL (7-18); CALCIUM 8.6 mg/dL (8.5-10.1); CREATININE 0.9 mg/dL (0.55-1.3); POTASSIUM 3.9 mmol/L (3.5-5.1); TOT PROT 7.1 g/dl (6.4-8.2)
[2019-11-10] MEDS: BUDESONIDE/FORMETEROL FUMARATE 160/4.5 mcg INHALER IH SCH (23:09)
[2019-11-10] MEDS: THIAMINE HCL 100 MG TABLET (FP) PO SCH (23:16)
[2019-11-10] MEDS: MELATONIN 5 MG TABLETS PO SCH (23:17)
[2019-11-11] MEDS: chlordiazePOXIDE HCL 25 MG CAPSULE PO SCH ×4 (06:51→22:31)
[2019-11-11] MEDS: hydrOXYzine PAMOATE 25 MG CAPSULE (FP) PO SCH ×2 (06:57→10:57)
--- NOTE | 2019-11-11 09:14 | PN ---
S CIWA - CIWA Score Nausea/Vomitin-No Nausea/No Vomiting Muscle Tremors: 3 Anxiety: 2 Agitation: 1-Slight > Activity Paroxysmal Sweats: 1-Minimal Palms Moist Orientation: 0-Oriented Tacttile Disturbances: 1-Very Mild Itch/Numbness Auditory Disturbances: 0-None Visual Disturbances: 2-Mild Sensitivity Headache: 2-Mild CIWA-Ar Total Score: 12 [facility] Progress Note (SOAP) Subjective: 64 years old female admitted on 11/10/19 for alcohol withdrawal sx management treating with librium detox regiment feeling tired resting in bed limited conversation with staff ms feliciano was informed that methadone 125 mg po will be administered around 10 am today and starts tomorrow will be administered around 6 am Objective: 11/11/19 09:36 Vital Signs - 24 hr 11/10/19 11/10/19 11/10/19 12:33 14:14 16:43 Temperature 98.2 F 97.8 F 97.7 F Pulse Rate 55 L 50 L 64 Respiratory 16 18 18 Rate Blood Pressure 142/92 146/82 150/93 O2 Sat by Pulse 99 99 Oximetry (%) 11/10/19 11/11/19 20:57 08:40 Temperature 97.7 F 97.3 F L Pulse Rate 55 L 54 L Respiratory 17 16 Rate Blood Pressure 148/90 141/87 O2 Sat by Pulse 99 Oximetry (%) discontinue isolation precaution bp elevation 11/11/19 09:40 resume amlodipine 10 mg po daily begin diltiazem 120 mg po daily clonidine 0.1 prn 11/11/19 09:40 Laboratory Tests 11/10/19 11/10/19 11/10/19 12:00 12:00 12:00 WBC 4.1 RBC 4.17 Hgb 12.2 Hct 35.5 MCV 85.0 MCH 29.3 MCHC 34.4 RDW 15.2 Plt Count 204 MPV 10.1 Sodium 141 Potassium 3.9 Chloride 106 Carbon Dioxide 29 Anion Gap 6 L BUN 11.5 Creatinine 0.9 Est GFR (CKD-EPI)AfAm 79.42 Est GFR (CKD-EPI)NonAf 68.53 Random Glucose 112 H Calcium 8.6 Total Bilirubin 0.5 AST 27 ALT 23 Alkaline Phosphatase 77 Total Protein 7.1 Albumin 3.2 L Syphilis Serology Reactive A* COVID-19 (CARLA) 11/10/19 13:00 WBC RBC Hgb Hct MCV MCH MCHC RDW Plt Count MPV Sodium Potassium Chloride Carbon Dioxide Anion Gap BUN Creatinine Est GFR (CKD-EPI)AfAm Est GFR (CKD-EPI)NonAf Random Glucose Calcium Total Bilirubin AST ALT Alkaline Phosphatase Total Protein Albumin Syphilis Serology COVID-19 (CARLA) Not detected reactive serology syphilis 11/11/19 09:41 rpr pending 11/11/19 09:44 fasting glucose pending Assessment: 11/11/19 09:41 alcohol withdrawal discontinue isolation precaution hypertension syphilis reactive 11/11/19 09:42 rpr pending 11/11/19 09:45 glucose serum elevation Plan: librium regiment methadone 125 mg po daily amlodipine 10 mg po daily diltiazem 120 mg po daily clonidine 0.1 mg po prn fasting glucose pending
[2019-11-11] MEDS: ACETAMINOPHEN 325 MG TABLET (FP) PO PRN (09:20)
[2019-11-11] MEDS ORDERED: METHADONE HCL 40 MG DISPERSABLE TABLET ONE (09:48)
[2019-11-11] MEDS ORDERED: METHADONE HCL 5 MG TABLET ONE (09:49)
[2019-11-11] MEDS ORDERED: cloNIDine HCL 0.1 MG TABLET PO SCH (10:00)
[2019-11-11] MEDS ORDERED: METHADONE HCL 10 MG TABLET PO ONE (10:00)
[2019-11-11] MEDS ORDERED: cloNIDine HCL 0.1 MG TABLET PO PRN (10:00)
[2019-11-11] MEDS ORDERED: METHADONE 120 MG, METHADONE 5 MG PO ONE (10:00)
[2019-11-11] MEDS: BUDESONIDE/FORMETEROL FUMARATE 160/4.5 mcg INHALER IH SCH ×2 (10:28→22:31)
[2019-11-11] MEDS: PRENATAL VITAMINS W/ FOLIC ACID TABLET (FP) PO SCH (10:28)
[2019-11-11] MEDS: amLODIPine BESYLATE 10 MG TABLET (FP) PO SCH (10:30)
[2019-11-11] MEDS: NICOTINE 7 MG/24 HOURS TOPICAL PATCH TD SCH (10:30)
[2019-11-11] MEDS: PANTOPRAZOLE 20 MG TABLET PO SCH (10:30)
[2019-11-11] MEDS ORDERED: hydrOXYzine PAMOATE 25 MG CAPSULE (FP) PO PRN (10:56)
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
[2019-11-11] MEDS: THIAMINE HCL 100 MG TABLET (FP) PO SCH (22:31)
[2019-11-11] MEDS: NICOTINE POLACRILEX 2 MG GUM BUC PRN (22:34)
[2019-11-11] MEDS: MELATONIN 5 MG TABLETS PO SCH (22:36)
[2019-11-11] MEDS: chlordiazePOXIDE HCL 25 MG CAPSULE PO PRN (23:44)
[2019-11-12] MEDS ORDERED: METHADONE HCL 40 MG DISPERSABLE TABLET ONE (05:06)
[2019-11-12] MEDS ORDERED: METHADONE HCL 5 MG TABLET ONE (05:06)
[2019-11-12] MEDS: chlordiazePOXIDE HCL 25 MG CAPSULE PO SCH ×2 (05:45→10:14)
[2019-11-12] MEDS: METHADONE 120 MG, METHADONE 5 MG PO SCH (05:45)
[2019-11-12] MEDS: NICOTINE POLACRILEX 2 MG GUM BUC PRN (05:52)
[2019-11-12] MEDS ORDERED: METHADONE HCL 10 MG TABLET PO SCH (06:00)
[2019-11-12] MEDS: PANTOPRAZOLE 20 MG TABLET PO SCH (10:14)
[2019-11-12] MEDS: PRENATAL VITAMINS W/ FOLIC ACID TABLET (FP) PO SCH (10:14)
[2019-11-12] MEDS: NICOTINE 7 MG/24 HOURS TOPICAL PATCH TD SCH (10:14)
[2019-11-12] MEDS: BUDESONIDE/FORMETEROL FUMARATE 160/4.5 mcg INHALER IH SCH ×2 (10:14→22:32)
[2019-11-12] MEDS: amLODIPine BESYLATE 10 MG TABLET (FP) PO SCH (10:14)
[2019-11-12] MEDS: ACETAMINOPHEN 325 MG TABLET (FP) PO PRN (10:15)
--- NOTE | 2019-11-12 11:29 | PN ---
S CIWA - CIWA Score Nausea/Vomitin-Mild Nausea/No Vomiting Muscle Tremors: 3 Anxiety: 2 Agitation: 0-Normal Activity Paroxysmal Sweats: 1-Minimal Palms Moist Orientation: 0-Oriented Tacttile Disturbances: 1-Very Mild Itch/Numbness Auditory Disturbances: 0-None Visual Disturbances: 2-Mild Sensitivity Headache: 0-None Present CIWA-Ar Total Score: 10 [facility] Progress Note (SOAP) Subjective: 64 years old female admitted on 11/10/19 for alcohol withdrawal sx management ms feliciano seem sleepy while eating breakfast aroused through light touch reducing librium dosage as per alcohol detox continue methadone 125 mg po daily Objective: 11/12/19 11:36 Vital Signs - 24 hr 11/11/19 11/11/19 11/11/19 12:40 16:52 20:59 Temperature 97.3 F L 97.7 F 97.5 F L Pulse Rate 65 59 L 62 Respiratory 18 18 19 Rate Blood Pressure 129/60 137/83 122/78 O2 Sat by Pulse 96 96 Oximetry (%) 11/12/19 11/12/19 06:00 08:52 Temperature 97.3 F L 98.1 F Pulse Rate 64 57 L Respiratory 16 16 Rate Blood Pressure 128/78 124/81 O2 Sat by Pulse 99 Oximetry (%) Laboratory Tests 11/10/19 11/10/19 11/10/19 12:00 12:00 12:00 WBC 4.1 RBC 4.17 Hgb 12.2 Hct 35.5 MCV 85.0 MCH 29.3 MCHC 34.4 RDW 15.2 Plt Count 204 MPV 10.1 Sodium 141 Potassium 3.9 Chloride 106 Carbon Dioxide 29 Anion Gap 6 L BUN 11.5 Creatinine 0.9 Est GFR (CKD-EPI)AfAm 79.42 Est GFR (CKD-EPI)NonAf 68.53 Random Glucose 112 H Calcium 8.6 Total Bilirubin 0.5 AST 27 ALT 23 Alkaline Phosphatase 77 Total Protein 7.1 Albumin 3.2 L Syphilis Serology Reactive A* RPR Titer COVID-19 (CARLA) 11/10/19 11/10/19 12:00 13:00 WBC RBC Hgb Hct MCV MCH MCHC RDW Plt Count MPV Sodium Potassium Chloride Carbon Dioxide Anion Gap BUN Creatinine Est GFR (CKD-EPI)AfAm Est GFR (CKD-EPI)NonAf Random Glucose Calcium Total Bilirubin AST ALT Alkaline Phosphatase Total Protein Albumin Syphilis Serology RPR Titer Nonreactive COVID-19 (CARLA) Not detected lab noted fasting pending glucose ms feliciano appears doing well with diltiazem Assessment: 11/12/19 11:37 alcohol withdrawal Plan: librium regiment
[2019-11-12] MEDS: chlordiazePOXIDE HCL 10 MG CAPSULE PO SCH ×2 (17:21→22:30)
[2019-11-12] MEDS: MELATONIN 5 MG TABLETS PO SCH (22:30)
[2019-11-12] MEDS: THIAMINE HCL 100 MG TABLET (FP) PO SCH (22:30)
[2019-11-12] MEDS: chlordiazePOXIDE HCL 25 MG CAPSULE PO PRN (23:26)
[2019-11-13] MEDS ORDERED: chlordiazePOXIDE HCL 10 MG CAPSULE PO PRN
[2019-11-13] MEDS ORDERED: chlordiazePOXIDE HCL 10 MG CAPSULE PO SCH (05:00)
[2019-11-13] MEDS ORDERED: METHADONE HCL 5 MG TABLET ONE (05:03)
[2019-11-13] MEDS ORDERED: METHADONE HCL 40 MG DISPERSABLE TABLET ONE (05:03)
[2019-11-13] MEDS: METHADONE 120 MG, METHADONE 5 MG PO SCH (06:01)
[2019-11-13] MEDS: chlordiazePOXIDE 5 MG CAPSULE PO SCH ×3 (06:02→23:05)
--- NOTE | 2019-11-13 10:07 | PN ---
S CIWA - CIWA Score Nausea/Vomitin-Mild Nausea/No Vomiting Muscle Tremors: 1-None Visible, but D[place] Box Anxiety: 1-Mildly Anxious Agitation: 0-Normal Activity Paroxysmal Sweats: 1-Minimal Palms Moist Orientation: 1-Uncertain about Date Tacttile Disturbances: 1-Very Mild Itch/Numbness Auditory Disturbances: 0-None Visual Disturbances: 2-Mild Sensitivity Headache: 0-None Present CIWA-Ar Total Score: 8 [facility] Progress Note (SOAP) Subjective: 64 years old female admitted on 11/10/19 for alcohol withdrawal sx management treating with librium detox regiment ms feliciano appears to be sleepy while sitting on the edge of the bed eating breakfast librium dosage reduced due to sleepiness divided methadone dosage into 60mg and 65 mg tomorrow 11/14/19 continue observing sleepiness Objective: 11/13/19 10:05 Vital Signs - 24 hr 11/12/19 11/12/19 11/13/19 12:57 16:50 06:41 Temperature 97.5 F L 96.2 F L 98.0 F Pulse Rate 65 58 L 69 Respiratory 18 16 16 Rate Blood Pressure 143/88 140/82 129/78 O2 Sat by Pulse 96 99 Oximetry (%) 11/13/19 09:28 Temperature 97.1 F L Pulse Rate 62 Respiratory 18 Rate Blood Pressure 150/91 O2 Sat by Pulse 99 Oximetry (%) bp elevation continue clonidine 0.1 mg po prn 11/13/19 10:06 Laboratory Tests 11/10/19 11/10/19 11/10/19 12:00 12:00 12:00 WBC 4.1 RBC 4.17 Hgb 12.2 Hct 35.5 MCV 85.0 MCH 29.3 MCHC 34.4 RDW 15.2 Plt Count 204 MPV 10.1 Sodium 141 Potassium 3.9 Chloride 106 Carbon Dioxide 29 Anion Gap 6 L BUN 11.5 Creatinine 0.9 Est GFR (CKD-EPI)AfAm 79.42 Est GFR (CKD-EPI)NonAf 68.53 Random Glucose 112 H Calcium 8.6 Total Bilirubin 0.5 AST 27 ALT 23 Alkaline Phosphatase 77 Total Protein 7.1 Albumin 3.2 L Syphilis Serology Reactive A* RPR Titer T.pallidum Ab Interpret COVID-19 (CARLA) 11/10/19 11/10/19 11/10/19 12:00 12:00 13:00 WBC RBC Hgb Hct MCV MCH MCHC RDW Plt Count MPV Sodium Potassium Chloride Carbon Dioxide Anion Gap BUN Creatinine Est GFR (CKD-EPI)AfAm Est GFR (CKD-EPI)NonAf Random Glucose Calcium Total Bilirubin AST ALT Alkaline Phosphatase Total Protein Albumin Syphilis Serology RPR Titer Nonreactive T.pallidum Ab Interpret Reactive H COVID-19 (CARLA) Not detected lab noted 11/16/19 16:02 Assessment: 11/16/19 16:02 alcohol withdrawal Plan: librium regiment
[2019-11-13] MEDS: BUDESONIDE/FORMETEROL FUMARATE 160/4.5 mcg INHALER IH SCH ×2 (10:48→23:08)
[2019-11-13] MEDS: PRENATAL VITAMINS W/ FOLIC ACID TABLET (FP) PO SCH (10:48)
[2019-11-13] MEDS: PANTOPRAZOLE 20 MG TABLET PO SCH (10:48)
[2019-11-13] MEDS: amLODIPine BESYLATE 10 MG TABLET (FP) PO SCH (10:48)
[2019-11-13] MEDS: NICOTINE 7 MG/24 HOURS TOPICAL PATCH TD SCH (10:48)
[2019-11-13] MEDS: ACETAMINOPHEN 325 MG TABLET (FP) PO PRN (10:58)
[2019-11-13] MEDS: MELATONIN 5 MG TABLETS PO SCH (23:07)
[2019-11-13] MEDS: THIAMINE HCL 100 MG TABLET (FP) PO SCH (23:09)
[2019-11-14] MEDS ORDERED: METHADONE HCL 10 MG TABLET ONE ×2 (03:09→16:59)
[2019-11-14] MEDS ORDERED: METHADONE HCL 40 MG DISPERSABLE TABLET ONE ×2 (03:09→16:59)
[2019-11-14] MEDS ORDERED: METHADONE HCL 10 MG TABLET PO ONE ×2 (05:00→18:00)
[2019-11-14] MEDS ORDERED: METHADONE 40 MG, METHADONE 20 MG PO ONE (05:00)
[2019-11-14] MEDS ORDERED: chlordiazePOXIDE HCL 10 MG CAPSULE PO SCH (05:00)
[2019-11-14] MEDS ORDERED: METHADONE HCL 5 MG TABLET PO SCH (06:00)
[2019-11-14] MEDS: chlordiazePOXIDE 5 MG CAPSULE PO SCH ×2 (07:13→17:38)
[2019-11-14] MEDS: NICOTINE 7 MG/24 HOURS TOPICAL PATCH TD SCH (10:32)
[2019-11-14] MEDS: BUDESONIDE/FORMETEROL FUMARATE 160/4.5 mcg INHALER IH SCH ×2 (10:46→22:21)
[2019-11-14] MEDS: amLODIPine BESYLATE 10 MG TABLET (FP) PO SCH (10:46)
[2019-11-14] MEDS: PANTOPRAZOLE 20 MG TABLET PO SCH (10:46)
[2019-11-14] MEDS: PRENATAL VITAMINS W/ FOLIC ACID TABLET (FP) PO SCH (10:46)
--- NOTE | 2019-11-14 11:08 | PN ---
S CIWA - CIWA Score Nausea/Vomitin-Mild Nausea/No Vomiting Muscle Tremors: None Anxiety: 1-Mildly Anxious Agitation: 1-Slight > Activity Paroxysmal Sweats: No Perspiration Orientation: 2-Disoriented Date<2 days Tacttile Disturbances: 0-None Auditory Disturbances: 0-None Visual Disturbances: 1-Very Mild Sensitivity Headache: 0-None Present CIWA-Ar Total Score: 6 [facility] Progress Note (SOAP) Subjective: Pt complains of slight nausea, anxiety, light sensitivity. Objective: 11/14/19 11:05 PE Gnl: WDWN MS: eyes closed, slow to answer, keeps eyes closed, does not always answer when called, appears sleepy, then states that she needs to urinate, gets us and walks to bathroom Motor: moves limbs symetrically Gait: slow, steady Coord: nl Laboratory Tests 11/10/19 11/10/19 11/10/19 12:00 12:00 12:00 WBC 4.1 RBC 4.17 Hgb 12.2 Hct 35.5 MCV 85.0 MCH 29.3 MCHC 34.4 RDW 15.2 Plt Count 204 MPV 10.1 Sodium 141 Potassium 3.9 Chloride 106 Carbon Dioxide 29 Anion Gap 6 L BUN 11.5 Creatinine 0.9 Est GFR (CKD-EPI)AfAm 79.42 Est GFR (CKD-EPI)NonAf 68.53 Random Glucose 112 H Fasting Glucose Calcium 8.6 Total Bilirubin 0.5 AST 27 ALT 23 Alkaline Phosphatase 77 Total Protein 7.1 Albumin 3.2 L Syphilis Serology Reactive A* RPR Titer T.pallidum Ab Interpret COVID-19 (CARLA) 11/10/19 11/10/19 11/10/19 12:00 12:00 13:00 WBC RBC Hgb Hct MCV MCH MCHC RDW Plt Count MPV Sodium Potassium Chloride Carbon Dioxide Anion Gap BUN Creatinine Est GFR (CKD-EPI)AfAm Est GFR (CKD-EPI)NonAf Random Glucose Fasting Glucose Calcium Total Bilirubin AST ALT Alkaline Phosphatase Total Protein Albumin Syphilis Serology RPR Titer Nonreactive T.pallidum Ab Interpret Reactive H COVID-19 (CARLA) Not detected 11/14/19 07:30 WBC RBC Hgb Hct MCV MCH MCHC RDW Plt Count MPV Sodium Potassium Chloride Carbon Dioxide Anion Gap BUN Creatinine Est GFR (CKD-EPI)AfAm Est GFR (CKD-EPI)NonAf Random Glucose Fasting Glucose 76 Calcium Total Bilirubin AST ALT Alkaline Phosphatase Total Protein Albumin Syphilis Serology RPR Titer T.pallidum Ab Interpret COVID-19 (CARLA) Vital Signs - 24 hr 11/13/19 11/13/19 11/13/19 12:35 16:56 21:00 Temperature 97.5 F L 97.5 F L 98.0 F Pulse Rate 65 63 61 Respiratory 18 16 18 Rate Blood Pressure 146/98 141/84 113/73 O2 Sat by Pulse 99 99 97 Oximetry (%) 11/14/19 11/14/19 06:36 08:45 Temperature 97.5 F L 96.9 F L Pulse Rate 67 71 Respiratory 16 18 Rate Blood Pressure 132/78 121/79 O2 Sat by Pulse 97 97 Oximetry (%) Assessment: 11/14/19 11:07 1. Alcohol use disorder 2. methadone maintenence, dose was split yesterday due to sedation 3. pt appears sleepy today Plan: 1. Librium: rec: hold one dose 2. continue methadone split for today, discharge in am: return to prior dose of 125 mg total
--- NOTE | 2019-11-14 16:02 | PN ---
[facility] Progress Note Note: Pt informed this provider that she gets swelling under both eyes if she does not get her full dose of methadone. Dose was split due to sedation. PE mild swelling beneath both eyes Imp Mild swelling Plan 1. pt to get seconds half of methadone dose this afternoon 2. scheduled for discharge tomorrow, will get full dose in am 3. continue to monitor 4. cane to ambulate, staff requests, pt agrees, slow gait
[2019-11-14] MEDS ORDERED: METHADONE HCL 5 MG TABLET ONE (17:00)
[2019-11-14] MEDS ORDERED: METHADONE 40 MG, METHADONE 20 MG, METHADONE 5 MG PO ONE (18:00)
[2019-11-14] MEDS: MELATONIN 5 MG TABLETS PO SCH (22:21)
[2019-11-14] MEDS: THIAMINE HCL 100 MG TABLET (FP) PO SCH (22:21)
[2019-11-15] MEDS ORDERED: METHADONE HCL 40 MG DISPERSABLE TABLET ONE (04:29)
[2019-11-15] MEDS ORDERED: METHADONE HCL 5 MG TABLET ONE (04:30)
[2019-11-15] MEDS ORDERED: chlordiazePOXIDE 5 MG CAPSULE PO ONE (05:00)
[2019-11-15] MEDS ORDERED: chlordiazePOXIDE HCL 10 MG CAPSULE PO ONE (05:00)
[2019-11-15] MEDS ORDERED: METHADONE HCL 10 MG TABLET PO SCH (06:00)
[2019-11-15] MEDS ORDERED: METHADONE 120 MG, METHADONE 5 MG PO SCH (06:00)
[2019-11-15 09:12] VITALS: BP 134/94; PULSE 71; TEMP 97.3
[2019-11-15] MEDS: BUDESONIDE/FORMETEROL FUMARATE 160/4.5 mcg INHALER IH SCH (10:15)
[2019-11-15] MEDS: amLODIPine BESYLATE 10 MG TABLET (FP) PO SCH (10:16)
[2019-11-15] MEDS: PRENATAL VITAMINS W/ FOLIC ACID TABLET (FP) PO SCH (10:16)
[2019-11-15] MEDS: PANTOPRAZOLE 20 MG TABLET PO SCH (10:16)
[2019-11-15] MEDS: NICOTINE 7 MG/24 HOURS TOPICAL PATCH TD SCH (10:16)
--- NOTE | 2019-11-15 12:23 | DS ---
[facility] Detox Discharge Summary Admission Date: 11/10/19 Discharge Date: 11/15/19 - History Present History: Alcohol Dependence, Cocaine Dependence Additional Comments: As per H&P: "64 year old female with history of alcohol dependence with withdrawal. She was last at [facility] from 02/25/10-03/03/19 when she completed detox and was discharged for aftercare. However, she relapsed immediately thereafter". Pt is medically cleared and is discharged to [facility] for continued management. Pt completed the detox protocol. Pt is encouraged to follow through with the rehab protocol which she verbalized understanding. Pt is alert and oriented x3 and in no acute respiratory distress, Full ROM. Pertinent Past History: h/o asthma, HTN, cocaine, and alcohol use disorder. - Physical Exam Results Vital Signs: Vital Signs Temperature 97.3 F L 11/15/19 08:58 Pulse Rate 71 11/15/19 08:58 Respiratory Rate 18 11/15/19 08:58 Blood Pressure 134/94 11/15/19 08:58 O2 Sat by Pulse Oximetry (%) 96 11/15/19 06:59 Vital Signs 11/15/19 11/15/19 06:59 08:58 Temperature 97.8 F 97.3 F L Pulse Rate 74 71 Respiratory 18 18 Rate Blood Pressure 134/90 134/94 O2 Sat by Pulse 96 Oximetry (%) Laboratory Last Values WBC 4.1 K/mm3 (4.0-10.0) 11/10/19 12:00 RBC 4.17 M/mm3 (3.60-5.2) 11/10/19 12:00 Hgb 12.2 GM/dL (10.7-15.3) 11/10/19 12:00 Hct 35.5 % (32.4-45.2) 11/10/19 12:00 MCV 85.0 fl (80-96) 11/10/19 12:00 MCH 29.3 pg (25.7-33.7) 11/10/19 12:00 MCHC 34.4 g/dl (32.0-36.0) 11/10/19 12:00 RDW 15.2 % (11.6-15.6) 11/10/19 12:00 Plt Count 204 K/MM3 (134-434) 11/10/19 12:00 MPV 10.1 fl (7.5-11.1) 11/10/19 12:00 Sodium 141 mmol/L (136-145) 11/10/19 12:00 Potassium 3.9 mmol/L (3.5-5.1) 11/10/19 12:00 Chloride 106 mmol/L (98-107) 11/10/19 12:00 Carbon Dioxide 29 mmol/L (21-32) 11/10/19 12:00 Anion Gap 6 MMOL/L (8-16) L 11/10/19 12:00 BUN 11.5 mg/dL (7-18) 11/10/19 12:00 Creatinine 0.9 mg/dL (0.55-1.3) 11/10/19 12:00 Est GFR (CKD-EPI)AfAm 79.42 11/10/19 12:00 Est GFR (CKD-EPI)NonAf 68.53 11/10/19 12:00 Random Glucose 112 mg/dL (74-106) H 11/10/19 12:00 Fasting Glucose 76 mg/dL (74-106) 11/14/19 07:30 Calcium 8.6 mg/dL (8.5-10.1) 11/10/19 12:00 Total Bilirubin 0.5 mg/dL (0.2-1) 11/10/19 12:00 AST 27 U/L (15-37) 11/10/19 12:00 ALT 23 U/L (13-61) 11/10/19 12:00 Alkaline Phosphatase 77 U/L (45-117) 11/10/19 12:00 Total Protein 7.1 g/dl (6.4-8.2) 11/10/19 12:00 Albumin 3.2 g/dl (3.4-5.0) L 11/10/19 12:00 Syphilis Serology Reactive (NONREACTIVE) A* 11/10/19 12:00 RPR Titer Nonreactive (NONREACTIVE) 11/10/19 12:00 T.pallidum Ab Interpret Reactive (Non Reactive) H 11/10/19 12:00 COVID-19 (CARLA) Not detected (Not Detected) 11/10/19 13:00 Labs noted. Pertinent Admission Physical Exam Findings: Withdrawal symptoms. - Treatment Hospital Course: Detox Protocol Followed, Detoxed Safely, Responded well, Discharged Condition Good, Rehab Referral Accepted Patient has Accepted a Rehab Referral to: [facility]. - Medication Discharge Medications: Ambulatory Orders Salmeterol/Fluticasone [Advair 500Mcg/50Mcg -] 1 inh IH BID #1 inh 06/23/13 Esomeprazole Mag Trihydrate [Nexium] 20 mg PO DAILY 09/09/15 Albuterol Sulfate Inhaler - [Ventolin HFA Inhaler -] 0 puff IH Q4HPO PRN #1 inhaler 11/17/15 Amlodipine Besylate [Norvasc -] 10 mg PO DAILY 02/25/19 cloNIDine HCL [Catapres -] 0.1 mg PO DAILY 02/25/19 Diltiazem Cd [Cardizem Cd -] 120 mg PO DAILY 30 Days #30 cap.cd.24h 11/14/19 Nicotine Patch [Nicoderm Patch -] 7 mg TD DAILY 30 Days #30 patch 11/14/19 - Diagnosis (1) Alcohol dependence with uncomplicated withdrawal Status: Acute (2) Nicotine dependence Status: Chronic Qualifiers: Nicotine product type: cigarettes Substance use status: uncomplicated Qualified Code(s): F17.210 - Nicotine dependence, cigarettes, uncomplicated (3) Opioid dependence on agonist therapy Status: Chronic (4) Alcohol dependence Status: Chronic Qualifiers: Substance use status: uncomplicated Qualified Code(s): F10.20 - Alcohol dependence, uncomplicated (5) Asthma Status: Chronic Qualifiers: Asthma severity: mild intermittent Asthma complication type: with status asthmaticus (6) Cocaine dependence Status: Chronic Qualifiers: Substance use status: uncomplicated Qualified Code(s): F14.20 - Cocaine dependence, uncomplicated (7) Gastroesophageal reflux disease Status: Chronic Qualifiers: Esophagitis presence: without esophagitis Qualified Code(s): K21.9 - Gastro-esophageal reflux disease without esophagitis (8) HTN (hypertension) Status: Chronic Qualifiers: Hypertension type: essential hypertension Qualified Code(s): I10 - Essential (primary) hypertension (9) Osteoarthritis Status: Chronic Qualifiers: Osteoarthritis location: knee Osteoarthritis type: primary Laterality: right Qualified Code(s): M17.11 - Unilateral primary osteoarthritis, right knee - AMA Did Patient Leave Against Medical Advice: No
== END 2019-11-15 11:10 | disposition other institution (70) | DRG 897 ==
LOC: YASAS 10:30 → Y3N 12:20
PROVIDERS: ADMIT Allergy & Immunology; ATTEND Allergy & Immunology
PROC: HZ2ZZZZ Detoxification Services for Substance Abuse Treatment (ICD-10-PCS; principal; 2019-11-10)
DX: F10.230 Alcohol dependence with withdrawal, uncomplicated (principal); F11.20 Opioid dependence, uncomplicated; F14.20 Cocaine dependence, uncomplicated; F10.280 Alcohol dependence with alcohol-induced anxiety disorder; F10.282 Alcohol dependence with alcohol-induced sleep disorder; F17.210 Nicotine dependence, cigarettes, uncomplicated; I10 Essential (primary) hypertension; J45.20 Mild intermittent asthma, uncomplicated; K21.9 Gastro-esophageal reflux disease without esophagitis; M17.11 Unilateral primary osteoarthritis, right knee; H02.846 Edema of left eye, unspecified eyelid; H02.843 Edema of right eye, unspecified eyelid; R73.9 Hyperglycemia, unspecified; E78.00 Pure hypercholesterolemia, unspecified; Z91.410 Personal history of adult physical and sexual abuse; Z91.013 Allergy to seafood
CPT/HCPCS: 36415; 71046-TC-FY; 80053; 82947; 85027; 86593; 86780; U0003

== ENCOUNTER 2019-11-15 11:18 | Inpatient (IN) | payer OTHER ==
[2019-11-15] MEDS ORDERED: LOPERAMIDE HCL 2 MG CAPSULE PO PRN (13:05)
[2019-11-15] MEDS ORDERED: MAGNESIUM CITRATE 300 ML BOTTLE PO PRN (13:05)
[2019-11-15] MEDS ORDERED: IBUPROFEN 400 MG TABLET (FP) PO PRN (13:05)
[2019-11-15] MEDS ORDERED: MAG HYDROX/AL HYDROX/SIMETH 30 ML UNIT-DOSE CUP PO PRN (13:05)
[2019-11-15] MEDS ORDERED: MAGNESIUM HYDROX 2400MG/30ML ORAL SUSPENSION 30 ML CUP PO PRN (13:05)
[2019-11-15] MEDS ORDERED: P-EPHED 60MG/TRIPROLIDI 2.5MG TABLET PO PRN (13:05)
[2019-11-15] MEDS ORDERED: MENTHOL/PHENOL 1 EACH UD MM PRN (13:05)
[2019-11-15] MEDS ORDERED: NICOTINE POLACRILEX 2 MG GUM BUC PRN (13:05)
[2019-11-15] MEDS ORDERED: guaiFENesin 200 MG/10 ML 10 ML UNIT-DOSE CUPS PO PRN (13:05)
--- NOTE | 2019-11-15 13:05 | HP ---
[facility] Rehab Assess/Revision - Admission History Admitted to Rehab from: [facility] Date of Admission to Rehab: 11/15/2019 - Vital signs Vital Signs: Vital Signs Period Temp Pulse Resp BP Sys/Stoner Pulse Ox Last 24 Hr 98.6 F 69 18 120/82 97 Vital Signs 11/15/19 11:30 Temperature 98.6 F Pulse Rate 69 Respiratory 18 Rate Blood Pressure 120/82 O2 Sat by Pulse 97 Oximetry (%) - Findings Detox History & Physical reviewed: Yes Concur with findings: Yes Inpatient Rehab Admission - Rehab Decision to Admit Inpatient rehab admission?: Yes - Initial Determination Are CD services needed?: Yes Free of communicable disease: Yes Not in need of hospitalization: Yes - Rehab Admission Criteria Previous failed treatment: Yes Poor recovery environment: Yes Comorbidities: Yes Lacks judgement: Yes Patient is meeting Inpatient Rehab admission criteria:: Yes
[2019-11-15] MEDS ORDERED: ALBUTEROL SO4 HFA INHALER IH PRN (13:11)
[2019-11-15] MEDS ORDERED: METHADONE PO SCH (14:00)
[2019-11-15] MEDS: hydrOXYzine PAMOATE 25 MG CAPSULE (FP) PO PRN (17:30)
[2019-11-15] MEDS: THIAMINE HCL 100 MG TABLET (FP) PO SCH (21:12)
[2019-11-15] MEDS: MELATONIN 5 MG TABLETS PO SCH (21:12)
[2019-11-15] MEDS: BUDESONIDE/FORMETEROL FUMARATE 160/4.5 mcg INHALER IH SCH (21:12)
[2019-11-16] MEDS: hydrOXYzine PAMOATE 25 MG CAPSULE (FP) PO PRN ×3 (00:16→21:35)
[2019-11-16] MEDS ORDERED: METHADONE 120 MG, METHADONE 5 MG PO SCH (05:43)
[2019-11-16] MEDS ORDERED: METHADONE HCL 40 MG DISPERSABLE TABLET ONE (05:45)
[2019-11-16] MEDS ORDERED: METHADONE HCL 5 MG TABLET ONE (05:46)
[2019-11-16] MEDS ORDERED: METHADONE HCL 10 MG TABLET PO SCH (06:00)
[2019-11-16] MEDS: METHADONE 120 MG, METHADONE 5 MG PO SCH (06:17)
[2019-11-16] MEDS ORDERED: PT OWN MED DRAWER 7, Y5N ONE (08:35)
[2019-11-16] MEDS: PRENATAL VITAMINS W/ FOLIC ACID TABLET (FP) PO SCH (10:24)
[2019-11-16] MEDS: amLODIPine BESYLATE 10 MG TABLET (FP) PO SCH (10:24)
[2019-11-16] MEDS: PANTOPRAZOLE 20 MG TABLET PO SCH (10:25)
[2019-11-16] MEDS: cloNIDine HCL 0.1 MG TABLET PO SCH (10:25)
[2019-11-16] MEDS: NICOTINE 7 MG/24 HOURS TOPICAL PATCH TD SCH (10:27)
[2019-11-16] MEDS: BUDESONIDE/FORMETEROL FUMARATE 160/4.5 mcg INHALER IH SCH ×2 (10:28→21:50)
[2019-11-16] MEDS: THIAMINE HCL 100 MG TABLET (FP) PO SCH (21:34)
[2019-11-16] MEDS: MELATONIN 5 MG TABLETS PO SCH (21:35)
[2019-11-17] MEDS ORDERED: METHADONE HCL 40 MG DISPERSABLE TABLET ONE (03:15)
[2019-11-17] MEDS ORDERED: METHADONE HCL 5 MG TABLET ONE (03:15)
[2019-11-17] MEDS: METHADONE 120 MG, METHADONE 5 MG PO SCH (06:12)
[2019-11-17] MEDS: cloNIDine HCL 0.1 MG TABLET PO SCH (10:18)
[2019-11-17] MEDS: PANTOPRAZOLE 20 MG TABLET PO SCH (10:24)
[2019-11-17] MEDS: amLODIPine BESYLATE 10 MG TABLET (FP) PO SCH (10:24)
[2019-11-17] MEDS: BUDESONIDE/FORMETEROL FUMARATE 160/4.5 mcg INHALER IH SCH ×3 (10:24→22:05)
[2019-11-17] MEDS: NICOTINE 7 MG/24 HOURS TOPICAL PATCH TD SCH ×2 (10:24→13:15)
[2019-11-17] MEDS: PRENATAL VITAMINS W/ FOLIC ACID TABLET (FP) PO SCH (10:25)
--- NOTE | 2019-11-17 12:35 | PN ---
[facility] Progress Note Note: Patient evaluated for sedation. Admitted to rehab from detox on 11/15/2019 for alcohol dependence. Also on MMTP 125mg po daily for opiod dependence. PMH includes HTN and Asthma. Vital Signs (72 hours) 11/15/19 11/15/19 11/16/19 11:30 20:20 06:47 Temperature 98.6 F 98.0 F 98.6 F Pulse Rate 69 71 Respiratory 18 18 Rate Blood Pressure 120/82 136/92 O2 Sat by Pulse 97 95 96 Oximetry (%) 11/16/19 11/16/19 11/17/19 12:25 20:31 06:06 Temperature 97.8 F 98.9 F Pulse Rate 67 69 Respiratory 17 Rate Blood Pressure 123/86 111/71 O2 Sat by Pulse 96 98 Oximetry (%) 11/17/19 08:38 Temperature 98.2 F Pulse Rate 72 Respiratory 16 Rate Blood Pressure 101/66 O2 Sat by Pulse Oximetry (%) ROS: patient eating breakfast, nodding periodically but arousable. She denies dizziness, weakness, headache, shakes and sweating. PE: alert and oriented x 3 +perrla, eoms intact bl neck supple, no jvd ext no tremors, no visible edema, full rom unsteady gait A/P: Alcohol dependence MMTP sedation unsteady gait will d/c clonidine as BP stable and due to risk of added sedative effects d/c vistaril prn continue MMTP as ordered-if sedation continues consider contacting [facility] for dose adjustment encourage oral fluids cane for ambulation support monitor clinically
[2019-11-17] MEDS ORDERED: hydrOXYzine PAMOATE 25 MG CAPSULE (FP) PO ONE (21:57)
[2019-11-17] MEDS: MELATONIN 5 MG TABLETS PO SCH (22:05)
[2019-11-17] MEDS: THIAMINE HCL 100 MG TABLET (FP) PO SCH (22:05)
[2019-11-18] MEDS ORDERED: METHADONE HCL 40 MG DISPERSABLE TABLET ONE (03:28)
[2019-11-18] MEDS ORDERED: METHADONE HCL 5 MG TABLET ONE (03:28)
[2019-11-18] MEDS: METHADONE 120 MG, METHADONE 5 MG PO SCH (06:19)
[2019-11-18] MEDS: PANTOPRAZOLE 20 MG TABLET PO SCH (10:50)
[2019-11-18] MEDS: PRENATAL VITAMINS W/ FOLIC ACID TABLET (FP) PO SCH (10:50)
[2019-11-18] MEDS: amLODIPine BESYLATE 10 MG TABLET (FP) PO SCH (10:50)
[2019-11-18] MEDS: NICOTINE 7 MG/24 HOURS TOPICAL PATCH TD SCH (10:51)
[2019-11-18] MEDS: BUDESONIDE/FORMETEROL FUMARATE 160/4.5 mcg INHALER IH SCH ×2 (10:52→21:47)
[2019-11-18] MEDS: THIAMINE HCL 100 MG TABLET (FP) PO SCH (21:46)
[2019-11-18] MEDS: MELATONIN 5 MG TABLETS PO SCH (21:46)
[2019-11-19] MEDS ORDERED: METHADONE HCL 5 MG TABLET ONE (05:39)
[2019-11-19] MEDS ORDERED: METHADONE HCL 40 MG DISPERSABLE TABLET ONE (05:39)
[2019-11-19] MEDS: METHADONE 120 MG, METHADONE 5 MG PO SCH (06:08)
[2019-11-19] MEDS: NICOTINE 7 MG/24 HOURS TOPICAL PATCH TD SCH (09:27)
[2019-11-19] MEDS: BUDESONIDE/FORMETEROL FUMARATE 160/4.5 mcg INHALER IH SCH ×2 (09:27→21:31)
[2019-11-19] MEDS: amLODIPine BESYLATE 10 MG TABLET (FP) PO SCH (09:27)
[2019-11-19] MEDS: PANTOPRAZOLE 20 MG TABLET PO SCH (09:27)
[2019-11-19] MEDS: PRENATAL VITAMINS W/ FOLIC ACID TABLET (FP) PO SCH (09:28)
[2019-11-19] MEDS: hydrOXYzine PAMOATE 25 MG CAPSULE (FP) PO PRN (15:56)
[2019-11-19] MEDS: THIAMINE HCL 100 MG TABLET (FP) PO SCH (21:30)
[2019-11-19] MEDS: MELATONIN 5 MG TABLETS PO SCH (21:30)
[2019-11-20] MEDS ORDERED: METHADONE HCL 40 MG DISPERSABLE TABLET ONE (05:41)
[2019-11-20] MEDS ORDERED: METHADONE HCL 5 MG TABLET ONE (05:41)
[2019-11-20] MEDS: METHADONE 120 MG, METHADONE 5 MG PO SCH (06:15)
[2019-11-20] MEDS ORDERED: PT OWN MED DRAWER 7, Y5N ONE (08:42)
[2019-11-20] MEDS: PRENATAL VITAMINS W/ FOLIC ACID TABLET (FP) PO SCH (10:47)
[2019-11-20] MEDS: PANTOPRAZOLE 20 MG TABLET PO SCH (10:47)
[2019-11-20] MEDS: BUDESONIDE/FORMETEROL FUMARATE 160/4.5 mcg INHALER IH SCH ×2 (10:47→21:20)
[2019-11-20] MEDS: amLODIPine BESYLATE 10 MG TABLET (FP) PO SCH (10:47)
[2019-11-20] MEDS: NICOTINE 7 MG/24 HOURS TOPICAL PATCH TD SCH ×2 (10:47→10:52)
[2019-11-20] MEDS ORDERED: MASKS NR ONE (11:12)
[2019-11-20] MEDS: MELATONIN 5 MG TABLETS PO SCH (21:19)
[2019-11-20] MEDS: THIAMINE HCL 100 MG TABLET (FP) PO SCH (21:19)
[2019-11-20] MEDS: hydrOXYzine PAMOATE 25 MG CAPSULE (FP) PO PRN (21:20)
[2019-11-21] MEDS ORDERED: METHADONE HCL 5 MG TABLET ONE (05:40)
[2019-11-21] MEDS ORDERED: METHADONE HCL 40 MG DISPERSABLE TABLET ONE (05:40)
[2019-11-21] MEDS: METHADONE 120 MG, METHADONE 5 MG PO SCH (06:22)
[2019-11-21] MEDS ORDERED: PT OWN MED DRAWER 7, Y5N ONE (08:45)
[2019-11-21] MEDS: PRENATAL VITAMINS W/ FOLIC ACID TABLET (FP) PO SCH (10:40)
[2019-11-21] MEDS: PANTOPRAZOLE 20 MG TABLET PO SCH (10:40)
[2019-11-21] MEDS: amLODIPine BESYLATE 10 MG TABLET (FP) PO SCH (10:40)
[2019-11-21] MEDS: BUDESONIDE/FORMETEROL FUMARATE 160/4.5 mcg INHALER IH SCH ×2 (10:41→21:37)
[2019-11-21] MEDS: NICOTINE 7 MG/24 HOURS TOPICAL PATCH TD SCH (10:41)
[2019-11-21] MEDS: hydrOXYzine PAMOATE 25 MG CAPSULE (FP) PO PRN ×3 (10:42→21:36)
[2019-11-21] MEDS: THIAMINE HCL 100 MG TABLET (FP) PO SCH (21:36)
[2019-11-21] MEDS: MELATONIN 5 MG TABLETS PO SCH (21:36)
[2019-11-22] MEDS ORDERED: METHADONE HCL 5 MG TABLET ONE (03:23)
[2019-11-22] MEDS ORDERED: METHADONE HCL 40 MG DISPERSABLE TABLET ONE (03:23)
[2019-11-22] MEDS: METHADONE 120 MG, METHADONE 5 MG PO SCH (06:20)
[2019-11-22] MEDS: NICOTINE 7 MG/24 HOURS TOPICAL PATCH TD SCH (09:30)
[2019-11-22] MEDS: PANTOPRAZOLE 20 MG TABLET PO SCH (09:30)
[2019-11-22] MEDS: amLODIPine BESYLATE 10 MG TABLET (FP) PO SCH (09:30)
[2019-11-22] MEDS: PRENATAL VITAMINS W/ FOLIC ACID TABLET (FP) PO SCH (09:30)
[2019-11-22] MEDS: BUDESONIDE/FORMETEROL FUMARATE 160/4.5 mcg INHALER IH SCH ×2 (09:30→21:24)
[2019-11-22] MEDS: hydrOXYzine PAMOATE 25 MG CAPSULE (FP) PO PRN (13:17)
[2019-11-22] MEDS: MELATONIN 5 MG TABLETS PO SCH (21:23)
[2019-11-22] MEDS: THIAMINE HCL 100 MG TABLET (FP) PO SCH (21:23)
[2019-11-23] MEDS ORDERED: METHADONE HCL 5 MG TABLET ONE (05:57)
[2019-11-23] MEDS ORDERED: METHADONE HCL 40 MG DISPERSABLE TABLET ONE (05:57)
[2019-11-23] MEDS: METHADONE 120 MG, METHADONE 5 MG PO SCH (06:21)
[2019-11-23] MEDS: BUDESONIDE/FORMETEROL FUMARATE 160/4.5 mcg INHALER IH SCH ×2 (09:19→21:24)
[2019-11-23] MEDS: PRENATAL VITAMINS W/ FOLIC ACID TABLET (FP) PO SCH (09:19)
[2019-11-23] MEDS: amLODIPine BESYLATE 10 MG TABLET (FP) PO SCH (09:20)
[2019-11-23] MEDS: PANTOPRAZOLE 20 MG TABLET PO SCH (09:20)
[2019-11-23] MEDS: NICOTINE 7 MG/24 HOURS TOPICAL PATCH TD SCH (09:20)
[2019-11-23] MEDS: ACETAMINOPHEN 325 MG TABLET (FP) PO PRN (09:21)
[2019-11-23] MEDS: hydrOXYzine PAMOATE 25 MG CAPSULE (FP) PO PRN ×2 (14:19→18:34)
[2019-11-23] MEDS ORDERED: hydrOXYzine PAMOATE 25 MG CAPSULE (FP) PO PRN (14:42)
--- NOTE | 2019-11-23 14:46 | PN ---
Psychiatric Progress Note Vital Signs: Vital Signs Period Temp Pulse Resp BP Sys/Stoner Pulse Ox Last 24 Hr 96.9 F-98 F 56-66 16-18 113-116/70-73 94-96 Date of Session: 11/23/19 Chief Complaint:: "I'm having anxiety." HPI: Patient admitted to [facility] for alcohol and cocaine dependence. ROS: Patient is ambulatory, alert +oriented X3. Current Medications: Active Medications Generic Name Dose Route Start Last Admin Trade Name Freq PRN Reason Stop Dose Admin Acetaminophen 650 mg 11/15/19 13:05 11/23/19 09:21 Tylenol - PO 650 mg Q6H PRN Administration FEVER Al Hydroxide/Mg Hydroxide 30 ml 11/15/19 13:05 Mylanta Oral Suspension - PO Q6H PRN DYSPEPSIA Albuterol Sulfate 2 puff 11/15/19 13:11 Ventolin Hfa Inhaler - IH Q4HPO PRN ASTHMA Amlodipine Besylate 10 mg 11/16/19 10:00 11/23/19 09:20 Norvasc - PO 10 mg DAILY TERESA Administration Budesonide/Formoterol Fumarate 2 puff 11/15/19 22:00 11/23/19 09:19 Symbicort 160/4.5mcg - IH 2 puff BID TERESA Administration Diltiazem HCl 120 mg 11/16/19 10:00 11/23/19 09:20 Cardizem Cd - PO 120 mg DAILY TERESA Administration Eucalyptus/Menthol/Phenol/Sorbitol 1 each 11/15/19 13:05 Cepastat Lozenge - MM Q4H PRN SORE THROAT Guaifenesin 10 ml 11/15/19 13:05 Robitussin - PO Q6H PRN COUGH Hydroxyzine Pamoate 25 mg 11/23/19 14:11 11/23/19 14:19 Vistaril - PO 25 mg Q4H PRN Administration ANXIETY Hydroxyzine Pamoate 25 mg 11/23/19 14:42 Vistaril - PO Q6H PRN FOR ITCHING Ibuprofen 400 mg 11/15/19 13:05 Motrin - PO Q6H PRN Pain Level 4-6 Loperamide HCl 4 mg 11/15/19 13:05 Imodium - PO Q6H PRN DIARRHEA Magnesium Citrate 300 ml 11/15/19 13:05 Citroma - PO Q48H PRN CONSTIPATION Magnesium Hydroxide 30 ml 11/15/19 13:05 Milk Of Magnesia - PO DAILY PRN CONSTIPATION Melatonin 5 mg 11/15/19 22:00 11/22/19 21:23 Melatonin PO 5 mg HS TERESA Administration Methadone HCl 120 mg/ 125 mg 11/23/19 06:00 11/23/19 06:21 Methadone HCl 5 mg PO 125 mg DAILY@0600 TERESA Administration Nicotine 7 mg 11/16/19 10:00 11/23/19 09:20 Nicoderm Patch - TD 7 mg DAILY TERESA Administration Nicotine Polacrilex 2 mg 11/15/19 13:05 Nicorette Gum - BUC Q2H PRN NICOTINE REPLACEMENT RX Pantoprazole Sodium 20 mg 11/16/19 10:00 11/23/19 09:20 Protonix - PO 20 mg DAILY TERESA Administration Multivit/Folic Acid/Iron 1 tab 11/16/19 10:00 11/23/19 09:19 Vitamins (Sjr) - PO 1 tab DAILY TERESA Administration Pseudoephedrine/Triprolidine 1 combo 11/15/19 13:05 Actifed - PO TID PRN NASAL CONGESTION Thiamine HCl 100 mg 11/15/19 22:00 11/22/19 21:23 Vitamin B1 - PO 100 mg HS TERESA Administration Medication(s) Change(s): Yes. Will order Vistaril 25mg Q4H PRN. Current Side Effect: No Lab tests ordered: No Lab tests reviewed: Yes Provider note:: Ms. Jones reports worsening anxiety due to a lack of discharge planning. Patient stated to leader writer, " I do not want to end up on the streets. I've been living on the streets for three years." Patient requesting to resume vistaril as it was intially discontinued on 11/17/19 due to patient presenting as lethargic. Will order Vistaril 25mg q4h PRN as needed for anxiety. Benefits and side effects discussed. Verbal consent given. Total face to face time:: 25 Mental Status Exam - Mental Status Exam Alert and Oriented to: Time, Place, Person Cognitive Function: Good Patient Appearance: Well Groomed Mood: Anxious Affect: Appropriate Patient Behavior: Appropriate, Cooperative Speech Pattern: Appropriate Voice Loudness: Normal Thought Process: Intact, Goal Oriented Thought Disorder: Not Present Hallucinations: Denies Suicidal Ideation: Denies Homicidal Ideation: Denies Insight/Judgement: Poor Sleep: Fair Appetite: Fair Muscle strength/Tone: Normal Gait/Station: Normal Psychiatric Treatment Plan - Problem List (1) Alcohol dependence Current Visit: Yes Qualifiers: Substance use status: uncomplicated Qualified Code(s): F10.20 - Alcohol dep endence, uncomplicated (2) Cocaine dependence Current Visit: Yes Qualifiers: Substance use status: uncomplicated Qualified Code(s): F14.20 - Cocaine dependence, uncomplicated (3) Methadone maintenance therapy patient Current Visit: Yes Comment: 145 MG DAILY LAST DOSE 01/06/16 VERIFICATION PENDING (4) Nicotine dependence Current Visit: Yes Qualifiers: Nicotine product type: cigarettes Substance use status: uncomplicated Qualified Code(s): F17.210 - Nicotine dependence, cigarettes, uncomplicated
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
[2019-11-23] MEDS: THIAMINE HCL 100 MG TABLET (FP) PO SCH (21:23)
[2019-11-23] MEDS: MELATONIN 5 MG TABLETS PO SCH (21:24)
[2019-11-24] MEDS: hydrOXYzine PAMOATE 25 MG CAPSULE (FP) PO PRN ×5 (00:52→23:32)
[2019-11-24] MEDS ORDERED: METHADONE HCL 5 MG TABLET ONE (05:37)
[2019-11-24] MEDS ORDERED: METHADONE HCL 40 MG DISPERSABLE TABLET ONE (05:37)
[2019-11-24] MEDS: METHADONE 120 MG, METHADONE 5 MG PO SCH (06:12)
[2019-11-24] MEDS: PANTOPRAZOLE 20 MG TABLET PO SCH (10:53)
[2019-11-24] MEDS: PRENATAL VITAMINS W/ FOLIC ACID TABLET (FP) PO SCH (10:53)
[2019-11-24] MEDS: amLODIPine BESYLATE 10 MG TABLET (FP) PO SCH (10:53)
[2019-11-24] MEDS: BUDESONIDE/FORMETEROL FUMARATE 160/4.5 mcg INHALER IH SCH ×2 (10:55→21:20)
[2019-11-24] MEDS: NICOTINE 7 MG/24 HOURS TOPICAL PATCH TD SCH (10:55)
[2019-11-24] MEDS: THIAMINE HCL 100 MG TABLET (FP) PO SCH (21:20)
[2019-11-24] MEDS: MELATONIN 5 MG TABLETS PO SCH (21:20)
[2019-11-25] MEDS ORDERED: METHADONE HCL 40 MG DISPERSABLE TABLET ONE (05:36)
[2019-11-25] MEDS ORDERED: METHADONE HCL 5 MG TABLET ONE (05:37)
[2019-11-25] MEDS: METHADONE 120 MG, METHADONE 5 MG PO SCH (06:18)
[2019-11-25] MEDS: hydrOXYzine PAMOATE 25 MG CAPSULE (FP) PO PRN ×4 (06:20→21:24)
[2019-11-25] MEDS: amLODIPine BESYLATE 10 MG TABLET (FP) PO SCH (11:13)
[2019-11-25] MEDS: BUDESONIDE/FORMETEROL FUMARATE 160/4.5 mcg INHALER IH SCH ×2 (11:13→21:24)
[2019-11-25] MEDS: PANTOPRAZOLE 20 MG TABLET PO SCH (11:13)
[2019-11-25] MEDS: PRENATAL VITAMINS W/ FOLIC ACID TABLET (FP) PO SCH (11:14)
[2019-11-25] MEDS: NICOTINE 7 MG/24 HOURS TOPICAL PATCH TD SCH (11:16)
[2019-11-25] MEDS: MELATONIN 5 MG TABLETS PO SCH (21:24)
[2019-11-25] MEDS: THIAMINE HCL 100 MG TABLET (FP) PO SCH (21:24)
[2019-11-26] MEDS: hydrOXYzine PAMOATE 25 MG CAPSULE (FP) PO PRN ×4 (03:24→21:20)
[2019-11-26] MEDS ORDERED: METHADONE HCL 5 MG TABLET ONE (05:37)
[2019-11-26] MEDS ORDERED: METHADONE HCL 40 MG DISPERSABLE TABLET ONE (05:37)
[2019-11-26] MEDS: METHADONE 120 MG, METHADONE 5 MG PO SCH (06:28)
[2019-11-26] MEDS: BUDESONIDE/FORMETEROL FUMARATE 160/4.5 mcg INHALER IH SCH ×2 (10:03→21:20)
[2019-11-26] MEDS: PANTOPRAZOLE 20 MG TABLET PO SCH (10:04)
[2019-11-26] MEDS: PRENATAL VITAMINS W/ FOLIC ACID TABLET (FP) PO SCH (10:04)
[2019-11-26] MEDS: NICOTINE 7 MG/24 HOURS TOPICAL PATCH TD SCH (10:04)
[2019-11-26] MEDS: amLODIPine BESYLATE 10 MG TABLET (FP) PO SCH (10:04)
[2019-11-26] MEDS: MELATONIN 5 MG TABLETS PO SCH (21:20)
[2019-11-26] MEDS: THIAMINE HCL 100 MG TABLET (FP) PO SCH (21:20)
[2019-11-27] MEDS: hydrOXYzine PAMOATE 25 MG CAPSULE (FP) PO PRN ×4 (02:58→21:17)
[2019-11-27] MEDS ORDERED: METHADONE HCL 5 MG TABLET ONE (03:34)
[2019-11-27] MEDS ORDERED: METHADONE HCL 40 MG DISPERSABLE TABLET ONE (03:34)
[2019-11-27] MEDS: METHADONE 120 MG, METHADONE 5 MG PO SCH (06:11)
[2019-11-27] MEDS: PRENATAL VITAMINS W/ FOLIC ACID TABLET (FP) PO SCH (09:31)
[2019-11-27] MEDS: PANTOPRAZOLE 20 MG TABLET PO SCH (09:32)
[2019-11-27] MEDS: NICOTINE 7 MG/24 HOURS TOPICAL PATCH TD SCH (09:32)
[2019-11-27] MEDS: amLODIPine BESYLATE 10 MG TABLET (FP) PO SCH (09:32)
[2019-11-27] MEDS: BUDESONIDE/FORMETEROL FUMARATE 160/4.5 mcg INHALER IH SCH ×2 (09:34→21:17)
[2019-11-27] MEDS: MELATONIN 5 MG TABLETS PO SCH (21:17)
[2019-11-27] MEDS: THIAMINE HCL 100 MG TABLET (FP) PO SCH (21:17)
[2019-11-28] MEDS ORDERED: METHADONE HCL 40 MG DISPERSABLE TABLET ONE (05:39)
[2019-11-28] MEDS ORDERED: METHADONE HCL 5 MG TABLET ONE (05:40)
[2019-11-28] MEDS: METHADONE 120 MG, METHADONE 5 MG PO SCH (06:15)
[2019-11-28] MEDS: hydrOXYzine PAMOATE 25 MG CAPSULE (FP) PO PRN ×4 (06:17→21:43)
[2019-11-28] MEDS: amLODIPine BESYLATE 10 MG TABLET (FP) PO SCH (09:34)
[2019-11-28] MEDS: PANTOPRAZOLE 20 MG TABLET PO SCH (09:35)
[2019-11-28] MEDS: NICOTINE 7 MG/24 HOURS TOPICAL PATCH TD SCH (09:36)
[2019-11-28] MEDS: PRENATAL VITAMINS W/ FOLIC ACID TABLET (FP) PO SCH (09:38)
[2019-11-28] MEDS: BUDESONIDE/FORMETEROL FUMARATE 160/4.5 mcg INHALER IH SCH ×2 (09:38→21:43)
[2019-11-28] MEDS: MELATONIN 5 MG TABLETS PO SCH (21:42)
[2019-11-28] MEDS: THIAMINE HCL 100 MG TABLET (FP) PO SCH (21:42)
[2019-11-29] MEDS: hydrOXYzine PAMOATE 25 MG CAPSULE (FP) PO PRN ×5 (03:26→21:33)
[2019-11-29] MEDS ORDERED: METHADONE HCL 5 MG TABLET ONE (05:37)
[2019-11-29] MEDS ORDERED: METHADONE HCL 40 MG DISPERSABLE TABLET ONE (05:37)
[2019-11-29] MEDS: METHADONE 120 MG, METHADONE 5 MG PO SCH (06:12)
[2019-11-29] MEDS: PANTOPRAZOLE 20 MG TABLET PO SCH (09:54)
[2019-11-29] MEDS: amLODIPine BESYLATE 10 MG TABLET (FP) PO SCH (09:54)
[2019-11-29] MEDS: NICOTINE 7 MG/24 HOURS TOPICAL PATCH TD SCH (09:54)
[2019-11-29] MEDS: PRENATAL VITAMINS W/ FOLIC ACID TABLET (FP) PO SCH (09:54)
[2019-11-29] MEDS: BUDESONIDE/FORMETEROL FUMARATE 160/4.5 mcg INHALER IH SCH ×2 (09:57→21:34)
[2019-11-29] MEDS: MELATONIN 5 MG TABLETS PO SCH (21:33)
[2019-11-29] MEDS: THIAMINE HCL 100 MG TABLET (FP) PO SCH (21:33)
[2019-11-30] MEDS ORDERED: METHADONE HCL 40 MG DISPERSABLE TABLET ONE (04:42)
[2019-11-30] MEDS ORDERED: METHADONE HCL 5 MG TABLET ONE (04:42)
[2019-11-30] MEDS: METHADONE 120 MG, METHADONE 5 MG PO SCH (06:08)
[2019-11-30] MEDS: hydrOXYzine PAMOATE 25 MG CAPSULE (FP) PO PRN ×4 (07:05→21:27)
[2019-11-30] MEDS: amLODIPine BESYLATE 10 MG TABLET (FP) PO SCH (10:15)
[2019-11-30] MEDS: NICOTINE 7 MG/24 HOURS TOPICAL PATCH TD SCH (10:15)
[2019-11-30] MEDS: PRENATAL VITAMINS W/ FOLIC ACID TABLET (FP) PO SCH (10:15)
[2019-11-30] MEDS: PANTOPRAZOLE 20 MG TABLET PO SCH (10:15)
[2019-11-30] MEDS: BUDESONIDE/FORMETEROL FUMARATE 160/4.5 mcg INHALER IH SCH ×2 (10:16→21:28)
[2019-11-30] MEDS: MELATONIN 5 MG TABLETS PO SCH (21:27)
[2019-11-30] MEDS: THIAMINE HCL 100 MG TABLET (FP) PO SCH (21:27)
[2019-12-01] MEDS: hydrOXYzine PAMOATE 25 MG CAPSULE (FP) PO PRN ×6 (03:03→21:50)
[2019-12-01] MEDS ORDERED: METHADONE HCL 5 MG TABLET ONE (03:10)
[2019-12-01] MEDS ORDERED: METHADONE HCL 40 MG DISPERSABLE TABLET ONE (03:10)
[2019-12-01] MEDS: METHADONE 120 MG, METHADONE 5 MG PO SCH (06:23)
[2019-12-01] MEDS: amLODIPine BESYLATE 10 MG TABLET (FP) PO SCH (10:54)
[2019-12-01] MEDS: PANTOPRAZOLE 20 MG TABLET PO SCH (10:54)
[2019-12-01] MEDS: NICOTINE 7 MG/24 HOURS TOPICAL PATCH TD SCH (10:54)
[2019-12-01] MEDS: PRENATAL VITAMINS W/ FOLIC ACID TABLET (FP) PO SCH (10:54)
[2019-12-01] MEDS: BUDESONIDE/FORMETEROL FUMARATE 160/4.5 mcg INHALER IH SCH ×2 (10:58→21:50)
[2019-12-01] MEDS: MELATONIN 5 MG TABLETS PO SCH (21:50)
[2019-12-01] MEDS: THIAMINE HCL 100 MG TABLET (FP) PO SCH (21:50)
[2019-12-02] MEDS ORDERED: METHADONE HCL 40 MG DISPERSABLE TABLET ONE (04:37)
[2019-12-02] MEDS ORDERED: METHADONE HCL 5 MG TABLET ONE (04:38)
[2019-12-02] MEDS: METHADONE 120 MG, METHADONE 5 MG PO SCH (06:19)
[2019-12-02] MEDS: hydrOXYzine PAMOATE 25 MG CAPSULE (FP) PO PRN ×4 (06:21→21:33)
[2019-12-02] MEDS: PANTOPRAZOLE 20 MG TABLET PO SCH (09:47)
[2019-12-02] MEDS: amLODIPine BESYLATE 10 MG TABLET (FP) PO SCH (09:47)
[2019-12-02] MEDS: NICOTINE 7 MG/24 HOURS TOPICAL PATCH TD SCH (09:47)
[2019-12-02] MEDS: PRENATAL VITAMINS W/ FOLIC ACID TABLET (FP) PO SCH (09:47)
[2019-12-02] MEDS: BUDESONIDE/FORMETEROL FUMARATE 160/4.5 mcg INHALER IH SCH ×2 (09:48→21:33)
[2019-12-02] MEDS: MELATONIN 5 MG TABLETS PO SCH (21:33)
[2019-12-02] MEDS: THIAMINE HCL 100 MG TABLET (FP) PO SCH (21:33)
[2019-12-03] MEDS ORDERED: METHADONE HCL 40 MG DISPERSABLE TABLET ONE (05:16)
[2019-12-03] MEDS ORDERED: METHADONE HCL 5 MG TABLET ONE (05:16)
[2019-12-03] MEDS: hydrOXYzine PAMOATE 25 MG CAPSULE (FP) PO PRN ×4 (06:03→21:41)
[2019-12-03] MEDS: METHADONE 120 MG, METHADONE 5 MG PO SCH (06:03)
[2019-12-03] MEDS: BUDESONIDE/FORMETEROL FUMARATE 160/4.5 mcg INHALER IH SCH ×2 (10:39→21:41)
[2019-12-03] MEDS: PRENATAL VITAMINS W/ FOLIC ACID TABLET (FP) PO SCH (10:39)
[2019-12-03] MEDS: NICOTINE 7 MG/24 HOURS TOPICAL PATCH TD SCH (10:39)
[2019-12-03] MEDS: PANTOPRAZOLE 20 MG TABLET PO SCH (10:39)
[2019-12-03] MEDS: amLODIPine BESYLATE 10 MG TABLET (FP) PO SCH (10:39)
[2019-12-03] MEDS: MELATONIN 5 MG TABLETS PO SCH (21:41)
[2019-12-03] MEDS: THIAMINE HCL 100 MG TABLET (FP) PO SCH (21:41)
[2019-12-04] MEDS: hydrOXYzine PAMOATE 25 MG CAPSULE (FP) PO PRN ×5 (03:56→22:45)
[2019-12-04] MEDS ORDERED: METHADONE HCL 40 MG DISPERSABLE TABLET ONE (04:09)
[2019-12-04] MEDS ORDERED: METHADONE HCL 5 MG TABLET ONE (04:10)
[2019-12-04] MEDS: METHADONE 120 MG, METHADONE 5 MG PO SCH (05:56)
[2019-12-04] MEDS: PRENATAL VITAMINS W/ FOLIC ACID TABLET (FP) PO SCH (10:14)
[2019-12-04] MEDS: BUDESONIDE/FORMETEROL FUMARATE 160/4.5 mcg INHALER IH SCH ×2 (10:14→21:29)
[2019-12-04] MEDS: NICOTINE 7 MG/24 HOURS TOPICAL PATCH TD SCH (10:15)
[2019-12-04] MEDS: amLODIPine BESYLATE 10 MG TABLET (FP) PO SCH (10:15)
[2019-12-04] MEDS: PANTOPRAZOLE 20 MG TABLET PO SCH (10:15)
[2019-12-04] MEDS: ACETAMINOPHEN 325 MG TABLET (FP) PO PRN (10:16)
--- NOTE | 2019-12-04 16:58 | EKG ---
Test Reason : Blood Pressure : / mmHG Vent. Rate : 059 BPM Atrial Rate : 059 BPM P-R Int : 164 ms QRS Dur : 084 ms QT Int : 384 ms P-R-T Axes : 056 044 033 degrees QTc Int : 380 ms SINUS BRADYCARDIA NONSPECIFIC T WAVE ABNORMALITY ABNORMAL ECG NO PREVIOUS ECGS AVAILABLE Confirmed by RYAN LANE MD ([id number]) on 12/04/2019 4:58:00 PM Referred By: Confirmed By:RYAN LANE MD
[2019-12-04] MEDS: MELATONIN 5 MG TABLETS PO SCH (21:19)
[2019-12-04] MEDS: THIAMINE HCL 100 MG TABLET (FP) PO SCH (21:19)
[2019-12-05] MEDS ORDERED: METHADONE HCL 5 MG TABLET ONE (06:10)
[2019-12-05] MEDS ORDERED: METHADONE HCL 40 MG DISPERSABLE TABLET ONE (06:10)
[2019-12-05] MEDS: ACETAMINOPHEN 325 MG TABLET (FP) PO PRN (06:12)
[2019-12-05] MEDS: METHADONE 120 MG, METHADONE 5 MG PO SCH (06:12)
[2019-12-05] MEDS: hydrOXYzine PAMOATE 25 MG CAPSULE (FP) PO PRN ×2 (06:12→09:29)
[2019-12-05 07:12] VITALS: TEMP 98.3
--- NOTE | 2019-12-05 09:10 | DS ---
[facility] Rehab Discharge Summary - [facility] Rehab Discharge Summary Admission Date: 11/15/19 Discharge Date: 12/05/19 - History Present History: Alcohol dependence, Cocaine dependence, MMTP Pertinent Past History: Asthma HTN GERD HYpercholesterolemia Osteoarthritis Insomnia - Discharge Physical Exam Vital Signs: Vital Signs Temperature 98.3 F 12/05/19 07:11 Pulse Rate 57 L 12/05/19 07:11 Respiratory Rate 20 12/05/19 07:11 Blood Pressure 118/69 12/05/19 07:11 O2 Sat by Pulse Oximetry (%) 97 12/05/19 07:11 Alert o x 3 nad oob Ambulating with steady gait cardiac;s1 s2, rrr lungs:ctab abdomen:soft,+bs,nt,nd extremities:no edema,skin intact; Active FROM all extremities. - Treatment Discharge Condition: Discharge condition good - Medication Discharge Medications: Ambulatory Orders Salmeterol/Fluticasone [Advair 500Mcg/50Mcg -] 1 inh IH BID #1 inh 06/23/13 Esomeprazole Mag Trihydrate [Nexium] 20 mg PO DAILY 09/09/15 Albuterol Sulfate Inhaler - [Ventolin HFA Inhaler -] 0 puff IH Q4HPO PRN #1 inhaler 12/04/19 Amlodipine Besylate [Norvasc -] 10 mg PO DAILY #14 tablet 12/04/19 Diltiazem Cd [Cardizem Cd -] 120 mg PO DAILY 30 Days #30 cap.cd.24h 12/04/19 Nicotine Patch [Nicoderm Patch -] 7 mg TD DAILY 30 Days #30 patch 12/04/19 cloNIDine HCL [Catapres -] 0.1 mg PO DAILY #14 tablet 12/04/19 - Medication-Assisted Treatment (MAT) Medication-Assisted Treatment (MAT): No - Discharge Instructions Diet, activity, other medical instructions: Diet:NAD Activity:oob ad corin Other medical instructions:Follow up with primary care for medical management of Comorbid conditions. - Diagnosis (1) Alcohol dependence Current Visit: Yes Status: Chronic Qualifiers: Substance use status: uncomplicated Qualified Code(s): F10.20 - Alcohol dependence, uncomplicated (2) Cocaine dependence Current Visit: Yes Status: Chronic Qualifiers: Substance use status: uncomplicated Qualified Code(s): F14.20 - Cocaine dependence, uncomplicated (3) Methadone maintenance therapy patient Current Visit: Yes Status: Chronic (4) Nicotine dependence Current Visit: Yes Status: Chronic Qualifiers: Nicotine product type: cigarettes Substance use status: uncomplicated Qualified Code(s): F17.210 - Nicotine dependence, cigarettes, uncomplicated (5) Asthma Current Visit: Yes Status: Chronic Qualifiers: Asthma severity: mild intermittent Asthma complication type: with status asthmaticus (6) Gastroesophageal reflux disease Current Visit: Yes Status: Chronic Qualifiers: Esophagitis presence: without esophagitis Qualified Code(s): K21.9 - Gastro-esophageal reflux disease without esophagitis (7) HTN (hypertension) Current Visit: Yes Status: Chronic Qualifiers: Hypertension type: essential hypertension Qualified Code(s): I10 - Essential (primary) hypertension (8) Hypercholesterolemia Current Visit: Yes Status: Chronic (9) Osteoarthritis Current Visit: Yes Status: Chronic Qualifiers: Osteoarthritis location: knee Osteoarthritis type: primary Laterality: right Qualified Code(s): M17.11 - Unilateral primary osteoarthritis, right knee - Follow-up Referral Minutes to complete discharge: 25 - AMA Did Patient Leave Against Medical Advice: No
[2019-12-05] MEDS ORDERED: PT OWN MED DRAWER 7, Y5N ONE (09:23)
[2019-12-05] MEDS: BUDESONIDE/FORMETEROL FUMARATE 160/4.5 mcg INHALER IH SCH (09:24)
[2019-12-05] MEDS: NICOTINE 7 MG/24 HOURS TOPICAL PATCH TD SCH (09:27)
[2019-12-05] MEDS: amLODIPine BESYLATE 10 MG TABLET (FP) PO SCH (09:27)
[2019-12-05] MEDS: PRENATAL VITAMINS W/ FOLIC ACID TABLET (FP) PO SCH (09:27)
[2019-12-05] MEDS: PANTOPRAZOLE 20 MG TABLET PO SCH (09:27)
[2019-12-05 09:46] VITALS: BP 124/74; PULSE 62
== END 2019-12-05 09:51 | disposition home or self-care (01) | DRG 895 ==
LOC: YASAS 11:18 → Y3W 11:19 → Y3E 12-04 14:19
PROVIDERS: ADMIT Allergy & Immunology; ATTEND Allergy & Immunology
PROC: HZ42ZZZ Group Counseling for Substance Abuse Treatment, Cognitive-Behavioral (ICD-10-PCS; principal; 2019-11-15)
DX: F10.20 Alcohol dependence, uncomplicated (principal); F14.20 Cocaine dependence, uncomplicated; F11.20 Opioid dependence, uncomplicated; D64.9 Anemia, unspecified; G47.00 Insomnia, unspecified; I10 Essential (primary) hypertension; J45.909 Unspecified asthma, uncomplicated; K21.9 Gastro-esophageal reflux disease without esophagitis; M17.11 Unilateral primary osteoarthritis, right knee; R26.89 Other abnormalities of gait and mobility
CPT/HCPCS: 93005; 93010; J0735; U0003

== ENCOUNTER 2020-01-19 14:41 | Inpatient (IN) | payer OTHER ==
--- NOTE | 2020-01-19 15:09 | BHS.RME ---
Substance Use & Tx History - Substance Use History Alcohol Substance amount: 2 pints Vodka Frequency of use: Daily Substance route: Oral Date of Last Use: 01/18/20 Cocaine-Crack Substance amount: $100 Frequency of use: Daily Substance route: Smoking Date of Last Use: 01/18/20 Nicotine Substance amount: 10 cigs Frequency of use: Daily Substance route: Smoking Date of Last Use: 01/19/20 Physical/Psych/Mental Status - Behavior General Behavior: Decreased activity Eye Contact: Normal - Cooperativeness Cooperativeness: Cooperative - Thinking Thought Processes: Tight Thought content: Future oriented - Physical Health Problems Is patient presently having any pain?: No Does patient presently have any injuries (include location): No Does patient currently have a fever: No CIWA Nausea/Vomitin-Mild Nausea/No Vomiting Muscle Tremors: 4-Moderate,w/Arms Extend Anxiety: 3 Agitation: 3 Paroxysmal Sweats: 1-Minimal Palms Moist Orientation: 0-Oriented Tacttile Disturbances: 0-None Auditory Disturbances: 0-None Visual Disturbances: 1-Very Mild Sensitivity Headache: 0-None Present CIWA-Ar Total Score: 13
--- NOTE | 2020-01-19 15:43 | HP ---
CIWA Score Nausea/Vomitin-Mild Nausea/No Vomiting Muscle Tremors: 4-Moderate,w/Arms Extend Anxiety: 3 Agitation: 3 Paroxysmal Sweats: 1-Minimal Palms Moist Orientation: 0-Oriented Tacttile Disturbances: 0-None Auditory Disturbances: 0-None Visual Disturbances: 1-Very Mild Sensitivity Headache: 0-None Present CIWA-Ar Total Score: 13 - Admission Criteria OASAS Guidelines: Admission for Medically Managed Detox: Requires at least one of the followin. CIWA greater than 12 2. Seizures within the past 24 hours 3. Delirium tremens within the past 24 hours 4. Hallucinations within the past 24 hours 5. Acute intervention needed for co occurring medical disorder 6. Acute intervention needed for co occurring psychiatric disorder 7. Severe withdrawal that cannot be handled at a lower level of care (continued vomiting, continued diarrhea, abnormal vital signs) requiring intravenous medication and/or fluids 8. Admitting History and Physical - Admission History Source: Patient Limitations to Obtaining History: No Limitations - Past Medical History Cardiovascular: Yes: HTN Pulmonary: Yes: Asthma Gastrointestinal: Yes: GERD ...LMP: 01/14/00 Psych: Yes: Addictions - Past Surgical History Past Surgical History: Yes: - Smoking History Smoking history: Current every day smoker Have you smoked in the past 12 months: Yes Aproximately how many cigarettes per day: 10 - Alcohol/Substance Use Hx Alcohol Use: Yes History of Substance Use: reports: Cocaine - Social History ADL: Independent Occupation: unemployed History of Recent Travel: No Admission ROS [facility] - [facility] Chief Complaint: ETOH withdrawal symptoms. Allergies/Adverse Reactions: Allergies Allergy/AdvReac Type Severity Reaction Status Date / Time shellfish derived Allergy Severe Rash Verified 11/10/19 12:03 No Known Drug Allergies Allergy Verified 11/10/19 12:03 History of Present Illness: Patient is known to [facility] due to previous admissions. Presents today with alcohol withdrawal symptoms. Patient drinks 2 gallons of vodka daily, with last drink last night. JARETT 0.00. Has hx of eye family medicine chair, denies seizures, blackouts. Started drinking at age 17. Also smokes 100 dollars worth of crack/cocaine since age 22. Last use last night. PMH includes HTN, +ppd (last CXR 10/2019 negative) Asthma and GERD. Denies hx of mental illness, SI/HI and suicide attempts. Patient on MMTP, START program. States dose 135mg daily, last dose today. Exam Limitations: No Limitations - Ebola screening Have you traveled outside of the country in the last 21 days: No Have you had contact with anyone from an Ebola affected area: No Have you been sick,other than usual withdrawal symptoms: No Do you have a fever: No - Review of Systems EENT: reports: No Symptoms Reported Respiratory: reports: No Symptoms reported Cardiac: reports: No Symptoms Reported GI: reports: Poor Fluid Intake : reports: No Symptoms Reported Musculoskeletal: reports: Back Pain Integumentary: reports: No Symptoms Reported Neuro: reports: Tremors Endocrine: reports: No Symptoms Reported Hematology: reports: No Symptoms Reported Psychiatric: reports: Orientated x3, Anxious Patient History - Patient Medical History Hx Anemia: Yes (HX IN THE PAST) Hx Asthma: Yes Hx Chronic Obstructive Pulmonary Disease (COPD): No Hx Cancer: No Hx Cardiac Disorders: No Hx Congestive Heart Failure: No Hx Hypertension: Yes (non compliant with meds) Hx Hypercholesterolemia: Yes (on med-LIPITOR IN THE PAST/non-compliant) Hx Pacemaker: No HX Cerebrovascular Accident: No Hx Seizures: No Hx Dementia: No Hx Diabetes: No Hx Gastrointestinal Disorders: Yes (GERD) Hx Liver Disease: No Hx Genitourinary Disorders: No Hx Sexually Transmitted Disorders: No Hx Renal Disease (ESRD): No Hx Thyroid Disease: No Hx Human Immunodeficiency Virus (HIV): No (NEGATIVE HX) Hx Hepatitis C: No Hx Depression: Yes Hx Suicide Attempt: No Hx Bipolar Disorder: No Hx Schizophrenia: No - Patient Surgical History Past Surgical History: Yes Hx Neurologic Surgery: No Hx Cataract Extraction: No Hx Cardiac Surgery: No Hx Lung Surgery: No Hx Breast Surgery: No Hx Breast Biopsy: No Hx Abdominal Surgery: No Hx Appendectomy: No Hx Cholecystectomy: No Hx Genitourinary Surgery: No Hx Section: Yes (X 1 IN 1985) Hx Orthopedic Surgery: No Hx Hysterectomy: No Anesthesia Reaction: No - PPD History Previous Implant?: Yes Documented Results: Positive w/proof PPD to be Administered?: No - Reproductive History Patient is a Female of Child Bearing Age (11 -55 yrs old): No Last Menstrual Period: 01/14/00 Patient : No - Smoking Cessation Smoking history: Current every day smoker Have you smoked in the past 12 months: Yes Aproximately how many cigarettes per day: 10 Cigars Per Day: 0 Hx Chewing Tobacco Use: No Initiated information on smoking cessation: Yes 'Breaking Loose' booklet given: 01/19/20 - Substance & Tx. History Hx Alcohol Use: Yes Hx Substance Use: Yes Substance Use Type: Alcohol, Cocaine Hx Substance Use Treatment: Yes - Substances abused Cocaine Substance route: Smoking Frequency: Daily Amount used: 100 dollars Age of first use: 22 Date of last use: 01/18/20 Alcohol Substance route: Oral Frequency: Daily Amount used: 2 gallons Age of first use: 17 Date of last use: 01/18/20 Admission Physical Exam [facility] - Physical General Appearance: Yes: No Apparent Distress, Tremorous, Anxious HEENTM: Yes: EOMI, Hearing grossly Normal, Normocephalic, Normal Voice, TARUN, Pharynx Normal Respiratory: Yes: Chest Non-Tender, Lungs Clear, Normal Breath Sounds, No Respiratory Distress, No Accessory Muscle Use Neck: Yes: No masses,lesions,Nodules, Supple, Trachea in good position Breast: Yes: Breast Exam Deferred Cardiology: Yes: Regular Rhythm, Regular Rate, S1, S2 Abdominal: Yes: Normal Bowel Sounds, Non Tender, Soft Genitourinary: Yes: Within Normal Limits Back: Yes: Muscle Spasm Musculoskeletal: Yes: full range of Motion, Gait Steady, Back pain Extremities: Yes: Normal Inspection, Normal Range of Motion, Non-Tender, Tremors, Other (+redness/dry skin to bilateral feet and toes) Neurological: Yes: vp of product II-XII NML intact, Fully Oriented, Alert, Motor Strength 5/5, Normal Response, Other (anxiety) Integumentary: Yes: Normal Color, Dry, Warm Cleared for Admission [facility] - Detox or Rehab [facility] Level of Care: Medically Managed Detox Regimen/Protocol: Librium Breathalyzer - Breathalyzer Breathalyzer: 0 Vital Signs - Vital Signs Vital signs refused: No Temperature: 97.7 F Temperature source: Tympanic Pulse Rate: 67 Respiratory Rate: 18 Blood Pressure: 144/95 BP Location: Left Arm Blood Pressure position: Sitting - Height Height: 5 ft 3 in - Weight Weight: 157 lb Weight measurement method: Standing scale - BMI Body Mass Index (BMI): 27.8 - Bowel Function Bowel Movement: Yes POC Urine test - Result Urine Test Results: Negative - NO line present Urine Drug Screen - Test Device Lot number: [id number] Expiration date: 11/17/21 - Control Is test valid?: Yes - Results Drug screen NEGATIVE: No Urine drug screen results: KAMLESH-Cocaine, MTD-Methadone Inpatient Rehab Admission - Rehab Decision to Admit Inpatient rehab admission?: No
[2020-01-19] MEDS ORDERED: MAGNESIUM HYDROX 2400MG/30ML ORAL SUSPENSION 30 ML CUP PO PRN (15:52)
[2020-01-19] MEDS ORDERED: IBUPROFEN 400 MG TABLET (FP) PO PRN (15:52)
[2020-01-19] MEDS ORDERED: P-EPHED 60MG/TRIPROLIDI 2.5MG TABLET PO PRN (15:52)
[2020-01-19] MEDS ORDERED: ACETAMINOPHEN 325 MG TABLET (FP) PO PRN ×2 (15:52)
[2020-01-19] MEDS ORDERED: ONDANSETRON *ODT* 4 MG TABLET SL PRN (15:52)
[2020-01-19] MEDS ORDERED: BISMUTH SUBSALICYLATE 524 MG/30 ML UD PO PRN (15:52)
[2020-01-19] MEDS ORDERED: METHOCARBAMOL 500 MG TABLET PO PRN (15:52)
[2020-01-19] MEDS ORDERED: NICOTINE POLACRILEX 2 MG GUM BUC PRN (15:52)
[2020-01-19] MEDS ORDERED: MAGNESIUM CITRATE 300 ML BOTTLE PO PRN (15:52)
[2020-01-19] MEDS ORDERED: MAG HYDROX/AL HYDROX/SIMETH 30 ML UNIT-DOSE CUP PO PRN (15:52)
[2020-01-19] MEDS ORDERED: MENTHOL/PHENOL 1 EACH UD MM PRN (15:52)
[2020-01-19] MEDS ORDERED: chlordiazePOXIDE HCL 25 MG CAPSULE PO PRN (15:54)
[2020-01-19 16:08] VITALS: BMI 27.8
[2020-01-19] MEDS: hydrOXYzine PAMOATE 25 MG CAPSULE (FP) PO PRN (18:26)
[2020-01-19] MEDS: THIAMINE HCL 100 MG TABLET (FP) PO SCH (22:30)
[2020-01-19] MEDS: TOLNAFTATE 1% CREAM 15 GM TUBE TP SCH (22:30)
[2020-01-19] MEDS: MELATONIN 5 MG TABLETS PO SCH (22:30)
[2020-01-19] MEDS: chlordiazePOXIDE HCL 25 MG CAPSULE PO SCH (22:30)
[2020-01-20] MEDS: chlordiazePOXIDE HCL 25 MG CAPSULE PO SCH ×4 (06:04→22:35)
[2020-01-20] MEDS ORDERED: METHADONE HCL 10 MG TABLET PO ONE (09:09)
[2020-01-20] MEDS ORDERED: METHADONE 120 MG, METHADONE 10 MG, METHADONE 5 MG PO ONE (09:25)
[2020-01-20] MEDS ORDERED: METHADONE HCL 10 MG TABLET ONE (09:34)
[2020-01-20] MEDS ORDERED: METHADONE HCL 40 MG DISPERSABLE TABLET ONE (09:34)
[2020-01-20] MEDS ORDERED: METHADONE HCL 5 MG TABLET ONE (09:35)
--- NOTE | 2020-01-20 09:55 | EKG ---
Test Reason : Blood Pressure : / mmHG Vent. Rate : 052 BPM Atrial Rate : 052 BPM P-R Int : 156 ms QRS Dur : 084 ms QT Int : 476 ms P-R-T Axes : 050 048 044 degrees QTc Int : 442 ms SINUS BRADYCARDIA POSSIBLE LEFT ATRIAL ENLARGEMENT BORDERLINE ECG WHEN COMPARED WITH ECG OF 03-DEC-2019 14:06, QT HAS LENGTHENED Confirmed by Selvin Chavez MD ([id number]) on 01/20/2020 9:54:30 AM Referred By: MASTER POTTER Confirmed By:Selvin Chavez MD
[2020-01-20 10:22] LABS: HEMATOCRIT 34.2 % (32.4-45.2); HEMOGLOBIN 11.9 GM/dL (10.7-15.3); MCH 28.5 pg (25.7-33.7); MCHC 34.9 g/dl (32.0-36.0); MEAN CELL VOLUME 81.7 fl (80-96); MEAN PLT VOLUME 9.6 fl (7.5-11.1); PLATELET COUNT 200 K/MM3 (134-434); RBC 4.19 M/mm3 (3.60-5.2); RDW 17.3 % (11.6-15.6); WHITE BLOOD COUNT 3.7 K/mm3 (4.0-10.0)
[2020-01-20] MEDS: hydrOXYzine PAMOATE 25 MG CAPSULE (FP) PO PRN (10:22)
[2020-01-20 10:24] LABS: ALBUMIN 3.2 g/dl (3.4-5.0); BILIRUBIN,TOTAL 0.5 mg/dL (0.2-1); BLOOD UREA NITROGEN 16.6 mg/dL (7-18); CALCIUM 8.8 mg/dL (8.5-10.1); CREATININE 0.6 mg/dL (0.55-1.3); POTASSIUM 4.1 mmol/L (3.5-5.1)
[2020-01-20] MEDS: NICOTINE 7 MG/24 HOURS TOPICAL PATCH TD SCH (10:49)
[2020-01-20] MEDS: PRENATAL VITAMINS W/ FOLIC ACID TABLET (FP) PO SCH (10:54)
[2020-01-20] MEDS: TOLNAFTATE 1% CREAM 15 GM TUBE TP SCH ×2 (10:54→22:35)
--- NOTE | 2020-01-20 14:50 | PN ---
S CIWA - CIWA Score Nausea/Vomitin-Mild Nausea/No Vomiting Muscle Tremors: 1-None Visible, but [place] Anxiety: 1-Mildly Anxious Agitation: 1-Slight > Activity Paroxysmal Sweats: 1-Minimal Palms Moist Orientation: 1-Uncertain about Date (day of week) Tacttile Disturbances: 1-Very Mild Itch/Numbness Auditory Disturbances: 0-None Visual Disturbances: 1-Very Mild Sensitivity Headache: 2-Mild CIWA-Ar Total Score: 10 S Progress Note (SOAP) Subjective: 64 years old female was admitted on 01/19/20 for alcohol withdrawal sx management treating with librium detox regiment feels ok today received methadone 135 mg ate breakfast and lunch in room tolerated food well Objective: 01/20/20 14:49 Vital Signs - 24 hr 01/19/20 01/19/20 01/19/20 16:08 18:14 20:25 Temperature 97.7 F 97.5 F L 96.9 F L Pulse Rate 67 53 L 56 L Respiratory 18 17 17 Rate Blood Pressure 144/95 167/91 119/97 O2 Sat by Pulse 98 97 Oximetry (%) 01/20/20 01/20/20 01/20/20 06:49 09:26 12:50 Temperature 97.8 F 97.2 F L 96.8 F L Pulse Rate 63 67 58 L Respiratory 18 16 18 Rate Blood Pressure 148/90 120/76 127/77 O2 Sat by Pulse 96 96 97 Oximetry (%) Laboratory Tests 01/19/20 01/19/20 01/20/20 07:00 07:00 07:00 WBC 3.7 L RBC 4.19 Hgb 11.9 Hct 34.2 MCV 81.7 MCH 28.5 MCHC 34.9 RDW 17.3 H Plt Count 200 MPV 9.6 Sodium Potassium Chloride Carbon Dioxide Anion Gap BUN Creatinine Est GFR (CKD-EPI)AfAm Est GFR (CKD-EPI)NonAf Random Glucose Calcium Total Bilirubin AST ALT Alkaline Phosphatase Total Protein Albumin Syphilis Serology Reactive A* RPR Titer Reactive 1:1 H D 01/20/20 07:00 WBC RBC Hgb Hct MCV MCH MCHC RDW Plt Count MPV Sodium 144 Potassium 4.1 Chloride 108 H Carbon Dioxide 31 Anion Gap 5 L BUN 16.6 Creatinine 0.6 Est GFR (CKD-EPI)AfAm 113.22 Est GFR (CKD-EPI)NonAf 97.69 Random Glucose 75 Calcium 8.8 Total Bilirubin 0.5 AST 28 ALT 29 Alkaline Phosphatase 72 Total Protein 7.0 Albumin 3.2 L Syphilis Serology RPR Titer 01/20/20 14:51 covid pending syphilis contacted treated Assessment: 01/20/20 14:52 alcohol withdrawal Plan: librium regiment
[2020-01-20] MEDS: MELATONIN 5 MG TABLETS PO SCH (22:35)
[2020-01-20] MEDS: THIAMINE HCL 100 MG TABLET (FP) PO SCH (22:35)
[2020-01-21] MEDS ORDERED: METHADONE HCL 10 MG TABLET ONE (04:31)
[2020-01-21] MEDS ORDERED: METHADONE HCL 40 MG DISPERSABLE TABLET ONE (04:31)
[2020-01-21] MEDS ORDERED: METHADONE HCL 5 MG TABLET ONE (04:32)
[2020-01-21] MEDS ORDERED: METHADONE HCL 10 MG TABLET PO SCH (06:00)
[2020-01-21] MEDS: chlordiazePOXIDE HCL 25 MG CAPSULE PO SCH ×4 (06:13→22:25)
[2020-01-21] MEDS: METHADONE 120 MG, METHADONE 10 MG, METHADONE 5 MG PO SCH (06:14)
[2020-01-21] MEDS: NICOTINE 7 MG/24 HOURS TOPICAL PATCH TD SCH (10:15)
[2020-01-21] MEDS: PRENATAL VITAMINS W/ FOLIC ACID TABLET (FP) PO SCH (10:15)
[2020-01-21] MEDS: TOLNAFTATE 1% CREAM 15 GM TUBE TP SCH ×2 (10:15→22:24)
--- NOTE | 2020-01-21 11:04 | PN ---
S CIWA - CIWA Score Nausea/Vomitin Muscle Tremors: 2 Anxiety: 2 Agitation: 2 Paroxysmal Sweats: No Perspiration Orientation: 0-Oriented Tacttile Disturbances: 1-Very Mild Itch/Numbness Auditory Disturbances: 0-None Visual Disturbances: 0-None Headache: 2-Mild CIWA-Ar Total Score: 11 S Progress Note (SOAP) Subjective: alert,irritable,anxious interrupted sleep,aching pain, Objective: 01/21/20 17:54 Vital Signs Temperature 98.4 F 01/21/20 16:55 Pulse Rate 75 01/21/20 16:55 Respiratory Rate 18 01/21/20 16:55 Blood Pressure 139/96 01/21/20 16:55 O2 Sat by Pulse Oximetry (%) 98 01/21/20 12:35 Laboratory Last Values WBC 3.7 K/mm3 (4.0-10.0) L 01/20/20 07:00 RBC 4.19 M/mm3 (3.60-5.2) 01/20/20 07:00 Hgb 11.9 GM/dL (10.7-15.3) 01/20/20 07:00 Hct 34.2 % (32.4-45.2) 01/20/20 07:00 MCV 81.7 fl (80-96) 01/20/20 07:00 MCH 28.5 pg (25.7-33.7) 01/20/20 07:00 MCHC 34.9 g/dl (32.0-36.0) 01/20/20 07:00 RDW 17.3 % (11.6-15.6) H 01/20/20 07:00 Plt Count 200 K/MM3 (134-434) 01/20/20 07:00 MPV 9.6 fl (7.5-11.1) 01/20/20 07:00 Sodium 144 mmol/L (136-145) 01/20/20 07:00 Potassium 4.1 mmol/L (3.5-5.1) 01/20/20 07:00 Chloride 108 mmol/L (98-107) H 01/20/20 07:00 Carbon Dioxide 31 mmol/L (21-32) 01/20/20 07:00 Anion Gap 5 MMOL/L (8-16) L 01/20/20 07:00 BUN 16.6 mg/dL (7-18) 01/20/20 07:00 Creatinine 0.6 mg/dL (0.55-1.3) 01/20/20 07:00 Est GFR (CKD-EPI)AfAm 113.22 01/20/20 07:00 Est GFR (CKD-EPI)NonAf 97.69 01/20/20 07:00 Random Glucose 75 mg/dL (74-106) 01/20/20 07:00 Calcium 8.8 mg/dL (8.5-10.1) 01/20/20 07:00 Total Bilirubin 0.5 mg/dL (0.2-1) 01/20/20 07:00 AST 28 U/L (15-37) 01/20/20 07:00 ALT 29 U/L (13-61) 01/20/20 07:00 Alkaline Phosphatase 72 U/L (45-117) 01/20/20 07:00 Total Protein 7.0 g/dl (6.4-8.2) 01/20/20 07:00 Albumin 3.2 g/dl (3.4-5.0) L 01/20/20 07:00 Syphilis Serology Reactive (NONREACTIVE) A* 01/19/20 07:00 RPR Titer Reactive 1:1 (NONREACTIVE) H D 01/19/20 07:00 COVID-19 (CARLA) Not detected (Not Detected) 01/19/20 16:00 01/21/20 17:55 history of syphilis treated before Assessment: 01/21/20 17:55 withdrawal symptom Plan: continue detox librium regimen,continue methadone 135 mg po daily maintenance
[2020-01-21] MEDS: hydrOXYzine PAMOATE 25 MG CAPSULE (FP) PO PRN (15:51)
[2020-01-21] MEDS: THIAMINE HCL 100 MG TABLET (FP) PO SCH (22:25)
[2020-01-21] MEDS: MELATONIN 5 MG TABLETS PO SCH (22:25)
[2020-01-22] MEDS ORDERED: chlordiazePOXIDE HCL 10 MG CAPSULE PO PRN
[2020-01-22] MEDS ORDERED: METHADONE HCL 10 MG TABLET ONE (04:44)
[2020-01-22] MEDS ORDERED: METHADONE HCL 40 MG DISPERSABLE TABLET ONE (04:45)
[2020-01-22] MEDS ORDERED: METHADONE HCL 5 MG TABLET ONE (04:46)
[2020-01-22] MEDS: chlordiazePOXIDE HCL 10 MG CAPSULE PO SCH ×4 (05:33→22:33)
[2020-01-22] MEDS: METHADONE 120 MG, METHADONE 10 MG, METHADONE 5 MG PO SCH (05:33)
[2020-01-22] MEDS: NICOTINE 7 MG/24 HOURS TOPICAL PATCH TD SCH (11:00)
[2020-01-22] MEDS: PRENATAL VITAMINS W/ FOLIC ACID TABLET (FP) PO SCH (11:00)
[2020-01-22] MEDS: TOLNAFTATE 1% CREAM 15 GM TUBE TP SCH ×2 (11:01→22:33)
[2020-01-22] MEDS ORDERED: ALBUTEROL SO4 HFA INHALER IH PRN (14:06)
[2020-01-22] MEDS: amLODIPine BESYLATE 10 MG TABLET (FP) PO SCH (14:31)
--- NOTE | 2020-01-22 18:20 | PN ---
[facility] CIWA - CIWA Score Nausea/Vomitin-Mild Nausea/No Vomiting Muscle Tremors: 2 Anxiety: 2 Agitation: 2 Paroxysmal Sweats: No Perspiration Orientation: 0-Oriented Tacttile Disturbances: 1-Very Mild Itch/Numbness Auditory Disturbances: 0-None Visual Disturbances: 0-None Headache: 2-Mild CIWA-Ar Total Score: 10 S Progress Note (SOAP) Subjective: alert,irritable,anxious,interrupted sleep,aching pain,ambulation on the unit Objective: 01/22/20 18:18 Vital Signs Temperature 98.2 F 01/22/20 17:18 Pulse Rate 71 01/22/20 17:18 Respiratory Rate 18 01/22/20 17:18 Blood Pressure 119/79 01/22/20 17:18 O2 Sat by Pulse Oximetry (%) 96 01/22/20 12:33 Laboratory Last Values WBC 3.7 K/mm3 (4.0-10.0) L 01/20/20 07:00 RBC 4.19 M/mm3 (3.60-5.2) 01/20/20 07:00 Hgb 11.9 GM/dL (10.7-15.3) 01/20/20 07:00 Hct 34.2 % (32.4-45.2) 01/20/20 07:00 MCV 81.7 fl (80-96) 01/20/20 07:00 MCH 28.5 pg (25.7-33.7) 01/20/20 07:00 MCHC 34.9 g/dl (32.0-36.0) 01/20/20 07:00 RDW 17.3 % (11.6-15.6) H 01/20/20 07:00 Plt Count 200 K/MM3 (134-434) 01/20/20 07:00 MPV 9.6 fl (7.5-11.1) 01/20/20 07:00 Sodium 144 mmol/L (136-145) 01/20/20 07:00 Potassium 4.1 mmol/L (3.5-5.1) 01/20/20 07:00 Chloride 108 mmol/L (98-107) H 01/20/20 07:00 Carbon Dioxide 31 mmol/L (21-32) 01/20/20 07:00 Anion Gap 5 MMOL/L (8-16) L 01/20/20 07:00 BUN 16.6 mg/dL (7-18) 01/20/20 07:00 Creatinine 0.6 mg/dL (0.55-1.3) 01/20/20 07:00 Est GFR (CKD-EPI)AfAm 113.22 01/20/20 07:00 Est GFR (CKD-EPI)NonAf 97.69 01/20/20 07:00 Random Glucose 75 mg/dL (74-106) 01/20/20 07:00 Calcium 8.8 mg/dL (8.5-10.1) 01/20/20 07:00 Total Bilirubin 0.5 mg/dL (0.2-1) 01/20/20 07:00 AST 28 U/L (15-37) 01/20/20 07:00 ALT 29 U/L (13-61) 01/20/20 07:00 Alkaline Phosphatase 72 U/L (45-117) 01/20/20 07:00 Total Protein 7.0 g/dl (6.4-8.2) 01/20/20 07:00 Albumin 3.2 g/dl (3.4-5.0) L 01/20/20 07:00 Syphilis Serology Reactive (NONREACTIVE) A* 01/19/20 07:00 RPR Titer Reactive 1:1 (NONREACTIVE) H D 01/19/20 07:00 COVID-19 (CARLA) Not detected (Not Detected) 01/19/20 16:00 hisotry of syphilis treated before Assessment: 01/22/20 18:19 withdrawal symptom Plan: continue detox martyim bethn,continue methadone maintenance 135 mgs po daily agata montgomery
[2020-01-22] MEDS: MELATONIN 5 MG TABLETS PO SCH (22:33)
[2020-01-22] MEDS: THIAMINE HCL 100 MG TABLET (FP) PO SCH (22:33)
[2020-01-22] MEDS: BUDESONIDE/FORMETEROL FUMARATE 160/4.5 mcg INHALER IH SCH ×2 (22:34→22:38)
[2020-01-23] MEDS ORDERED: METHADONE HCL 5 MG TABLET ONE (04:45)
[2020-01-23] MEDS ORDERED: METHADONE HCL 40 MG DISPERSABLE TABLET ONE (04:45)
[2020-01-23] MEDS ORDERED: METHADONE HCL 10 MG TABLET ONE (04:45)
[2020-01-23] MEDS: chlordiazePOXIDE HCL 10 MG CAPSULE PO SCH ×2 (05:49→17:51)
[2020-01-23] MEDS: METHADONE 120 MG, METHADONE 10 MG, METHADONE 5 MG PO SCH (05:49)
[2020-01-23] MEDS: PRENATAL VITAMINS W/ FOLIC ACID TABLET (FP) PO SCH (10:50)
[2020-01-23] MEDS: amLODIPine BESYLATE 10 MG TABLET (FP) PO SCH (10:50)
[2020-01-23] MEDS: NICOTINE 7 MG/24 HOURS TOPICAL PATCH TD SCH (10:50)
[2020-01-23] MEDS: hydrOXYzine PAMOATE 25 MG CAPSULE (FP) PO PRN ×2 (10:55→22:35)
[2020-01-23] MEDS: BUDESONIDE/FORMETEROL FUMARATE 160/4.5 mcg INHALER IH SCH ×2 (10:55→22:38)
[2020-01-23] MEDS: TOLNAFTATE 1% CREAM 15 GM TUBE TP SCH ×2 (11:02→22:38)
--- NOTE | 2020-01-23 12:38 | PN ---
S CIWA - CIWA Score Nausea/Vomitin-Mild Nausea/No Vomiting Muscle Tremors: 2 Anxiety: 1-Mildly Anxious Agitation: 1-Slight > Activity Paroxysmal Sweats: No Perspiration Orientation: 0-Oriented Tacttile Disturbances: 0-None Auditory Disturbances: 0-None Visual Disturbances: 0-None Headache: 2-Mild CIWA-Ar Total Score: 7 BHS Progress Note (SOAP) Subjective: Pt seen at bedside this morning. Pt with improving alcohol withdrawal symptoms. No new complaints this morning. Objective: Last Vital Signs Temp Pulse Resp BP Pulse Ox 97.1 F L 65 16 127/88 98 01/23/20 09:01 01/23/20 09:01 01/23/20 09:01 01/23/20 09:01 01/23/20 06:56 Gen - NAD, well dev/well nourished, AOx3 CV - RRR, normal s1, s2 Pulm - CTAB, good air entry Mental Status - anxious MSK/ext - gait steady, normal inspection Skin - dry, normal color CBC,CMP WBC 3.7 K/mm3 (4.0-10.0) L 01/20/20 07:00 RBC 4.19 M/mm3 (3.60-5.2) 01/20/20 07:00 Hgb 11.9 GM/dL (10.7-15.3) 01/20/20 07:00 Hct 34.2 % (32.4-45.2) 01/20/20 07:00 MCV 81.7 fl (80-96) 01/20/20 07:00 MCH 28.5 pg (25.7-33.7) 01/20/20 07:00 MCHC 34.9 g/dl (32.0-36.0) 01/20/20 07:00 RDW 17.3 % (11.6-15.6) H 01/20/20 07:00 Plt Count 200 K/MM3 (134-434) 01/20/20 07:00 MPV 9.6 fl (7.5-11.1) 01/20/20 07:00 Sodium 144 mmol/L (136-145) 01/20/20 07:00 Potassium 4.1 mmol/L (3.5-5.1) 01/20/20 07:00 Chloride 108 mmol/L (98-107) H 01/20/20 07:00 Carbon Dioxide 31 mmol/L (21-32) 01/20/20 07:00 Anion Gap 5 MMOL/L (8-16) L 01/20/20 07:00 BUN 16.6 mg/dL (7-18) 01/20/20 07:00 Creatinine 0.6 mg/dL (0.55-1.3) 01/20/20 07:00 Est GFR (CKD-EPI)AfAm 113.22 01/20/20 07:00 Est GFR (CKD-EPI)NonAf 97.69 01/20/20 07:00 Random Glucose 75 mg/dL (74-106) 01/20/20 07:00 Calcium 8.8 mg/dL (8.5-10.1) 01/20/20 07:00 Total Bilirubin 0.5 mg/dL (0.2-1) 01/20/20 07:00 AST 28 U/L (15-37) 01/20/20 07:00 ALT 29 U/L (13-61) 01/20/20 07:00 Alkaline Phosphatase 72 U/L (45-117) 01/20/20 07:00 Total Protein 7.0 g/dl (6.4-8.2) 01/20/20 07:00 Albumin 3.2 g/dl (3.4-5.0) L 01/20/20 07:00 01/23/20 12:39 Assessment: Pt seen at bedside this morning. Pt with improving alcohol withdrawal symptoms; no new complaints. 01/23/20 12:46 Plan: Continue detox librim regimen,continue methadone maintenance 135 mgs po daily maintenance
[2020-01-23] MEDS: THIAMINE HCL 100 MG TABLET (FP) PO SCH (22:34)
[2020-01-23] MEDS: MELATONIN 5 MG TABLETS PO SCH (22:34)
[2020-01-24] MEDS ORDERED: METHADONE HCL 10 MG TABLET ONE (04:53)
[2020-01-24] MEDS ORDERED: METHADONE HCL 5 MG TABLET ONE (04:54)
[2020-01-24] MEDS ORDERED: METHADONE HCL 40 MG DISPERSABLE TABLET ONE (04:54)
[2020-01-24] MEDS ORDERED: chlordiazePOXIDE HCL 10 MG CAPSULE PO ONE (05:00)
[2020-01-24] MEDS: METHADONE 120 MG, METHADONE 10 MG, METHADONE 5 MG PO SCH (06:17)
[2020-01-24] MEDS: BUDESONIDE/FORMETEROL FUMARATE 160/4.5 mcg INHALER IH SCH (10:46)
[2020-01-24] MEDS: NICOTINE 7 MG/24 HOURS TOPICAL PATCH TD SCH (10:46)
[2020-01-24] MEDS: PRENATAL VITAMINS W/ FOLIC ACID TABLET (FP) PO SCH (10:46)
[2020-01-24] MEDS: amLODIPine BESYLATE 10 MG TABLET (FP) PO SCH (10:46)
[2020-01-24] MEDS: TOLNAFTATE 1% CREAM 15 GM TUBE TP SCH (10:47)
[2020-01-24 11:20] VITALS: BP 125/86; PULSE 73; TEMP 98.7
[2020-01-24] MEDS: hydrOXYzine PAMOATE 25 MG CAPSULE (FP) PO PRN (13:51)
--- NOTE | 2020-01-24 15:39 | DS ---
[facility] Detox Discharge Summary Admission Date: 01/19/20 Discharge Date: 01/24/20 - History Present History: Alcohol Dependence, Cocaine Dependence Additional Comments: Pt is medically cleared and discharged to [facility] for continued care. Pt completed the detox protocol. pt is encouraged to follow through with the Rehab protocol which she verbalized understanding. Pt is AOX3, in no acute respiratory distress, Full ROM, and ambulatory with a cane. Pertinent Past History: h/o HTN, Asthma, GERD, cocaine, and alcohol use disorder. - Physical Exam Results Vital Signs: Vital Signs Temperature 98.7 F 01/24/20 09:27 Pulse Rate 73 01/24/20 09:27 Respiratory Rate 18 01/24/20 09:27 Blood Pressure 125/86 01/24/20 09:27 O2 Sat by Pulse Oximetry (%) 96 01/24/20 06:13 Vital Signs 01/24/20 09:27 Temperature 98.7 F Pulse Rate 73 Respiratory 18 Rate Blood Pressure 125/86 Laboratory Last Values WBC 3.7 K/mm3 (4.0-10.0) L 01/20/20 07:00 RBC 4.19 M/mm3 (3.60-5.2) 01/20/20 07:00 Hgb 11.9 GM/dL (10.7-15.3) 01/20/20 07:00 Hct 34.2 % (32.4-45.2) 01/20/20 07:00 MCV 81.7 fl (80-96) 01/20/20 07:00 MCH 28.5 pg (25.7-33.7) 01/20/20 07:00 MCHC 34.9 g/dl (32.0-36.0) 01/20/20 07:00 RDW 17.3 % (11.6-15.6) H 01/20/20 07:00 Plt Count 200 K/MM3 (134-434) 01/20/20 07:00 MPV 9.6 fl (7.5-11.1) 01/20/20 07:00 Sodium 144 mmol/L (136-145) 01/20/20 07:00 Potassium 4.1 mmol/L (3.5-5.1) 01/20/20 07:00 Chloride 108 mmol/L (98-107) H 01/20/20 07:00 Carbon Dioxide 31 mmol/L (21-32) 01/20/20 07:00 Anion Gap 5 MMOL/L (8-16) L 01/20/20 07:00 BUN 16.6 mg/dL (7-18) 01/20/20 07:00 Creatinine 0.6 mg/dL (0.55-1.3) 01/20/20 07:00 Est GFR (CKD-EPI)AfAm 113.22 01/20/20 07:00 Est GFR (CKD-EPI)NonAf 97.69 01/20/20 07:00 Random Glucose 75 mg/dL (74-106) 01/20/20 07:00 Calcium 8.8 mg/dL (8.5-10.1) 01/20/20 07:00 Total Bilirubin 0.5 mg/dL (0.2-1) 01/20/20 07:00 AST 28 U/L (15-37) 01/20/20 07:00 ALT 29 U/L (13-61) 01/20/20 07:00 Alkaline Phosphatase 72 U/L (45-117) 01/20/20 07:00 Total Protein 7.0 g/dl (6.4-8.2) 01/20/20 07:00 Albumin 3.2 g/dl (3.4-5.0) L 01/20/20 07:00 Syphilis Serology Reactive (NONREACTIVE) A* 01/19/20 07:00 RPR Titer Reactive 1:1 (NONREACTIVE) H D 01/19/20 07:00 COVID-19 (CARLA) Not detected (Not Detected) 01/19/20 16:00 Labs noted. Pertinent Admission Physical Exam Findings: withdrawal symptoms. - Treatment Hospital Course: Detox Protocol Followed, Detoxed Safely, Responded well, Discharged Condition Good, Rehab Referral Accepted Patient has Accepted a Rehab Referral to: [facility] - Medication Discharge Medications: Ambulatory Orders Salmeterol/Fluticasone [Advair 500Mcg/50Mcg -] 1 inh IH BID #1 inh 06/23/13 Esomeprazole Mag Trihydrate [Nexium] 20 mg PO DAILY 09/09/15 Amlodipine Besylate [Norvasc -] 10 mg PO DAILY #14 tablet 12/04/19 Nicotine Patch [Nicoderm Patch -] 7 mg TD DAILY 30 Days #30 patch 12/04/19 cloNIDine HCL [Catapres -] 0.1 mg PO DAILY #14 tablet 12/04/19 Albuterol Sulfate Inhaler - [Ventolin HFA Inhaler -] 2 puff IH Q4HPO PRN 01/24/20 Budesonide/Formeterol Fumarate [SYMBICORT 160/4.5mcg -] 2 puff IH BID 01/24/20 Methadone [Dolophine -] 135 mg PO DAILY 01/24/20 - Diagnosis (1) Alcohol dependence with uncomplicated withdrawal Status: Acute (2) Asthma Status: Chronic Qualifiers: Asthma severity: mild intermittent Asthma complication type: with status asthmaticus (3) Cocaine dependence Status: Chronic Qualifiers: Substance use status: uncomplicated Qualified Code(s): F14.20 - Cocaine dependence, uncomplicated (4) HTN (hypertension) Status: Chronic Qualifiers: Hypertension type: essential hypertension Qualified Code(s): I10 - Essential (primary) hypertension (5) Methadone maintenance therapy patient Status: Chronic (6) Nicotine dependence Status: Chronic Qualifiers: Nicotine product type: cigarettes Substance use status: uncomplicated Qualified Code(s): F17.210 - Nicotine dependence, cigarettes, uncomplicated - AMA Did Patient Leave Against Medical Advice: No
== END 2020-01-24 14:40 | disposition other institution (70) | DRG 897 ==
LOC: YASAS 14:41 → Y3N 16:56
PROVIDERS: ADMIT Allergy & Immunology; ATTEND Allergy & Immunology
PROC: HZ2ZZZZ Detoxification Services for Substance Abuse Treatment (ICD-10-PCS; principal; 2020-01-19)
DX: F10.230 Alcohol dependence with withdrawal, uncomplicated (principal); F11.20 Opioid dependence, uncomplicated; F14.20 Cocaine dependence, uncomplicated; F17.210 Nicotine dependence, cigarettes, uncomplicated; E78.00 Pure hypercholesterolemia, unspecified; I10 Essential (primary) hypertension; J45.20 Mild intermittent asthma, uncomplicated; K21.9 Gastro-esophageal reflux disease without esophagitis; A53.0 Latent syphilis, unspecified as early or late; Z86.2 Personal history of diseases of the blood and blood-forming organs and certain disorders involving the immune mechanism; Z91.013 Allergy to seafood
CPT/HCPCS: 36415; 80053; 85027; 86593; 86780; 93005; 93010; C9803; U0003

== ENCOUNTER 2020-04-30 10:51 | Observation (INO) | payer OTHER ==
[2020-04-30 11:29] VITALS: BMI 25.7
[2020-04-30 13:42] LABS: BASO % 0.3 % (0-2.0); EOS % 0.6 % (0-4.5); HEMATOCRIT 39.4 % (32.4-45.2); HEMOGLOBIN 13.6 GM/dL (10.7-15.3); MCH 28.4 pg (25.7-33.7); MCHC 34.5 g/dl (32.0-36.0); MEAN CELL VOLUME 82.4 fl (80-96); MEAN PLT VOLUME 8.8 fl (7.5-11.1); MONO % 14.3 % (3.8-10.2); NEUT % 57.8 % (42.8-82.8); PLATELET COUNT 257 K/MM3 (134-434); RBC 4.78 M/mm3 (3.60-5.2); RDW 15.7 % (11.6-15.6); WHITE BLOOD COUNT 8.1 K/mm3 (4.0-10.0)
[2020-04-30 14:02] LABS: CHLORIDE 106 mmol/L (98-107); POTASSIUM 4.6 mmol/L (3.5-5.1); SODIUM 141 mmol/L (136-145)
[2020-04-30 14:04] LABS: ALBUMIN 3.3 g/dl (3.4-5.0); ANION GAP 5 MMOL/L (8-16); BLOOD UREA NITROGEN 17.8 mg/dL (7-18); CALCIUM 9.1 mg/dL (8.5-10.1); CO2 31 mmol/L (21-32)
[2020-04-30 14:06] LABS: GLUCOSE,RANDOM 68 mg/dL (74-106)
[2020-04-30 14:08] LABS: CREATININE 0.6 mg/dL (0.55-1.3); SGOT/AST 256 U/L (15-37); SGPT/ALT 104 U/L (13-61)
[2020-04-30 14:10] LABS: ALK PHOS 60 U/L (45-117); TOT PROT 7.8 g/dl (6.4-8.2)
[2020-04-30 14:13] LABS: N-TERMINAL BNP 39.3 pg/ml (5-125)
[2020-04-30 14:15] LABS: BILIRUBIN,TOTAL 0.9 mg/dL (0.2-1)
[2020-04-30] MEDS ORDERED: ACETAMINOPHEN 500 MG TABLET (FP) PO ONE (18:26)
[2020-04-30] MEDS ORDERED: KETOROLAC TROMETHAMINE 15 MG/ML VIAL IM ONE (18:26)
[2020-04-30] MEDS ORDERED: KETOROLAC TROMETHAMINE 15 MG/ML VIAL ONE (18:29)
[2020-04-30] MEDS ORDERED: ACETAMINOPHEN 325 MG TABLET (FP) ONE (18:29)
[2020-04-30] MEDS ORDERED: SODIUM CHLORIDE 0.9% 500 ML INFUS.BAG IV ONE (20:25)
[2020-05-01] MEDS ORDERED: ACETAMINOPHEN 325 MG TABLET (FP) PO PRN (00:31)
[2020-05-01] MEDS ORDERED: FOLIC ACID 1 MG TABLET (FP) PO ONE (00:31)
[2020-05-01] MEDS ORDERED: FOLIC ACID 1 MG TABLET (FP) ONE (02:41)
[2020-05-01 08:19] LABS: POTASSIUM 3.9 mmol/L (3.5-5.1)
[2020-05-01 08:24] LABS: ALBUMIN 2.8 g/dl (3.4-5.0); BLOOD UREA NITROGEN 19.8 mg/dL (7-18)
[2020-05-01 08:26] LABS: CALCIUM 8.6 mg/dL (8.5-10.1)
[2020-05-01 08:29] LABS: CREATININE 0.6 mg/dL (0.55-1.3)
[2020-05-01 08:30] LABS: BILIRUBIN,TOTAL 0.7 mg/dL (0.2-1); TOT PROT 6.5 g/dl (6.4-8.2)
[2020-05-01] MEDS ORDERED: ALBUTEROL SO4 HFA INHALER IH PRN (10:48)
[2020-05-01] MEDS ORDERED: METHADONE HCL 40 MG DISPERSABLE TABLET PO SCH (11:00)
[2020-05-01] MEDS ORDERED: METHADONE HCL 10 MG TABLET ONE (11:13)
[2020-05-01] MEDS ORDERED: THIAMINE HCL 100 MG TABLET (FP) ONE (11:14)
[2020-05-01] MEDS ORDERED: amLODIPine BESYLATE 5 MG TABLET (FP) ONE (11:14)
[2020-05-01] MEDS ORDERED: PANTOPRAZOLE 20 MG TABLET PO ONE (11:14)
[2020-05-01] MEDS ORDERED: METHADONE HCL 40 MG DISPERSABLE TABLET ONE (11:14)
[2020-05-01] MEDS ORDERED: MULTIVITAMINS (DAILY MVI) TABLET (FP) ONE (11:14)
[2020-05-01] MEDS ORDERED: ENOXAPARIN NA (PORCINE) 40 MG/0.4 ML DISP.SYRIN SQ ONE (11:15)
[2020-05-01] MEDS ORDERED: PT OWN MED DRAWER 7, Y5N ONE (11:15)
[2020-05-01 11:42] LABS: HIV INTERPRETATION NEGATIVE (NEGATIVE)
[2020-05-01] MEDS: ENOXAPARIN NA (PORCINE) 40 MG/0.4 ML DISP.SYRIN SQ SCH (11:42)
[2020-05-01] MEDS: MULTIVITAMINS (DAILY MVI) TABLET (FP) PO SCH (11:42)
[2020-05-01] MEDS: PANTOPRAZOLE 20 MG TABLET PO SCH (11:42)
[2020-05-01] MEDS: NICOTINE 7 MG/24 HOURS TOPICAL PATCH TD SCH (11:42)
[2020-05-01] MEDS: METHADONE 120 MG, METHADONE 15 MG PO SCH (11:42)
[2020-05-01] MEDS: THIAMINE HCL 100 MG TABLET (FP) PO SCH (11:42)
[2020-05-01] MEDS: BUDESONIDE/FORMETEROL FUMARATE 160/4.5 mcg INHALER IH SCH ×2 (14:52→21:54)
[2020-05-02] MEDS ORDERED: KETOROLAC TROMETHAMINE 10 MG TABLET PO ONE ×2 (02:19→09:24)
[2020-05-02] MEDS: KETOROLAC TROMETHAMINE 10 MG TABLET PO PRN ×3 (02:24→19:33)
[2020-05-02] MEDS ORDERED: METHADONE HCL 10 MG TABLET ONE (06:27)
[2020-05-02] MEDS ORDERED: METHADONE HCL 5 MG TABLET ONE (06:28)
[2020-05-02] MEDS ORDERED: METHADONE HCL 40 MG DISPERSABLE TABLET ONE (06:28)
[2020-05-02] MEDS: METHADONE 120 MG, METHADONE 15 MG PO SCH (06:38)
[2020-05-02 07:27] LABS: BASO % 0.4 % (0-2.0); EOS % 1.1 % (0-4.5); HEMATOCRIT 32.2 % (32.4-45.2); HEMOGLOBIN 11.4 GM/dL (10.7-15.3); LYMPH % 43.2 % (8-40); MCH 28.8 pg (25.7-33.7); MCHC 35.4 g/dl (32.0-36.0); MEAN CELL VOLUME 81.4 fl (80-96); MEAN PLT VOLUME 9.3 fl (7.5-11.1); MONO % 12.9 % (3.8-10.2); NEUT % 42.4 % (42.8-82.8); PLATELET COUNT 213 K/MM3 (134-434); RBC 3.96 M/mm3 (3.60-5.2); RDW 15.5 % (11.6-15.6); WHITE BLOOD COUNT 5.3 K/mm3 (4.0-10.0)
[2020-05-02 07:31] LABS: POTASSIUM 4.3 mmol/L (3.5-5.1)
[2020-05-02 07:38] LABS: ALBUMIN 2.6 g/dl (3.4-5.0); BLOOD UREA NITROGEN 17.7 mg/dL (7-18)
[2020-05-02 07:40] LABS: CALCIUM 8.2 mg/dL (8.5-10.1); MAGNESIUM 2.1 mg/dL (1.8-2.4)
[2020-05-02 07:41] LABS: CREATININE 0.6 mg/dL (0.55-1.3); PHOSPHOROUS 3.7 mg/dL (2.5-4.9)
[2020-05-02 07:44] LABS: BILIRUBIN,TOTAL 0.4 mg/dL (0.2-1); TOT PROT 6.4 g/dl (6.4-8.2)
[2020-05-02] MEDS ORDERED: THIAMINE HCL 100 MG TABLET (FP) ONE ×2 (09:24→11:22)
[2020-05-02] MEDS ORDERED: MULTIVITAMINS (DAILY MVI) TABLET (FP) ONE (09:24)
[2020-05-02] MEDS ORDERED: PANTOPRAZOLE 20 MG TABLET PO ONE ×2 (09:25→11:22)
[2020-05-02] MEDS: ENOXAPARIN NA (PORCINE) 40 MG/0.4 ML DISP.SYRIN SQ SCH (09:32)
[2020-05-02] MEDS: amLODIPine BESYLATE 10 MG TABLET (FP) PO SCH (09:33)
[2020-05-02] MEDS: MULTIVITAMINS (DAILY MVI) TABLET (FP) PO SCH (09:33)
[2020-05-02] MEDS: THIAMINE HCL 100 MG TABLET (FP) PO SCH (09:33)
[2020-05-02] MEDS: BUDESONIDE/FORMETEROL FUMARATE 160/4.5 mcg INHALER IH SCH ×2 (09:33→22:36)
[2020-05-02] MEDS: PANTOPRAZOLE 20 MG TABLET PO SCH (09:33)
[2020-05-02] MEDS: NICOTINE 7 MG/24 HOURS TOPICAL PATCH TD SCH (09:33)
[2020-05-02] MEDS ORDERED: amLODIPine BESYLATE 5 MG TABLET (FP) ONE (11:22)
[2020-05-02] MEDS ORDERED: SODIUM CHLORIDE 1,000 ML IV ONE (12:30)
[2020-05-02] MEDS ORDERED: MELATONIN 5 MG TABLETS PO ONE (22:22)
[2020-05-03] MEDS ORDERED: METHADONE HCL 10 MG TABLET ONE (05:15)
[2020-05-03] MEDS ORDERED: METHADONE HCL 40 MG DISPERSABLE TABLET ONE (05:15)
[2020-05-03] MEDS: METHADONE 120 MG, METHADONE 15 MG PO SCH (05:22)
[2020-05-03] MEDS: KETOROLAC TROMETHAMINE 10 MG TABLET PO PRN ×3 (05:27→20:39)
[2020-05-03 08:14] LABS: HEMATOCRIT 33.1 % (32.4-45.2); HEMOGLOBIN 11.2 GM/dL (10.7-15.3); MCH 28.3 pg (25.7-33.7); MEAN CELL VOLUME 83.2 fl (80-96); MEAN PLT VOLUME 9.2 fl (7.5-11.1); PLATELET COUNT 226 K/MM3 (134-434); RBC 3.98 M/mm3 (3.60-5.2); RDW 15.8 % (11.6-15.6); WHITE BLOOD COUNT 4.8 K/mm3 (4.0-10.0)
[2020-05-03 08:24] LABS: POTASSIUM 4.7 mmol/L (3.5-5.1)
[2020-05-03 08:27] LABS: ALBUMIN 2.9 g/dl (3.4-5.0); BLOOD UREA NITROGEN 22.6 mg/dL (7-18); CALCIUM 8.7 mg/dL (8.5-10.1)
[2020-05-03 08:30] LABS: CREATININE 0.7 mg/dL (0.55-1.3)
[2020-05-03 08:31] LABS: PHOSPHOROUS 4.3 mg/dL (2.5-4.9)
[2020-05-03 08:32] LABS: BILIRUBIN,TOTAL 0.4 mg/dL (0.2-1)
[2020-05-03] MEDS: NICOTINE 7 MG/24 HOURS TOPICAL PATCH TD SCH (10:34)
[2020-05-03] MEDS: amLODIPine BESYLATE 10 MG TABLET (FP) PO SCH (10:34)
[2020-05-03] MEDS: MULTIVITAMINS (DAILY MVI) TABLET (FP) PO SCH (10:34)
[2020-05-03] MEDS: PANTOPRAZOLE 20 MG TABLET PO SCH (10:34)
[2020-05-03] MEDS: ENOXAPARIN NA (PORCINE) 40 MG/0.4 ML DISP.SYRIN SQ SCH (10:34)
[2020-05-03] MEDS: BUDESONIDE/FORMETEROL FUMARATE 160/4.5 mcg INHALER IH SCH ×2 (10:34→21:39)
[2020-05-03] MEDS: THIAMINE HCL 100 MG TABLET (FP) PO SCH (10:34)
[2020-05-03] MEDS: FOLIC ACID 1 MG TABLET (FP) PO SCH (10:34)
[2020-05-03 12:06] LABS: HIV INTERPRETATION NEGATIVE (NEGATIVE)
[2020-05-03] MEDS: NYSTATIN 500,000 UNITS/5 ML SUSPENSION PO SCH ×2 (12:26→17:40)
[2020-05-03] MEDS: predniSONE 5 MG TABLET (UD) PO SCH (14:51)
[2020-05-03] MEDS ORDERED: MELATONIN 5 MG TABLETS PO ONE (20:03)
[2020-05-04] MEDS: NYSTATIN 500,000 UNITS/5 ML SUSPENSION PO SCH ×4 (00:29→18:06)
[2020-05-04] MEDS ORDERED: METHADONE HCL 40 MG DISPERSABLE TABLET ONE (05:31)
[2020-05-04] MEDS ORDERED: METHADONE HCL 10 MG TABLET ONE (05:31)
[2020-05-04] MEDS: KETOROLAC TROMETHAMINE 10 MG TABLET PO PRN ×3 (05:41→21:02)
[2020-05-04] MEDS: METHADONE 120 MG, METHADONE 15 MG PO SCH (05:41)
[2020-05-04 08:48] LABS: POTASSIUM 4.5 mmol/L (3.5-5.1); PROTHROMBIN TIME (PATIENT) 12.1 SEC (9.7-13.0)
[2020-05-04 08:56] LABS: BASO % 0.4 % (0-2.0); EOS % 2.4 % (0-4.5); HEMATOCRIT 32.6 % (32.4-45.2); HEMOGLOBIN 11.1 GM/dL (10.7-15.3); LYMPH % 47.6 % (8-40); MCH 28.1 pg (25.7-33.7); MCHC 34.1 g/dl (32.0-36.0); MEAN CELL VOLUME 82.4 fl (80-96); MEAN PLT VOLUME 8.7 fl (7.5-11.1); MONO % 13.4 % (3.8-10.2); NEUT % 36.2 % (42.8-82.8); PLATELET COUNT 255 K/MM3 (134-434); RBC 3.96 M/mm3 (3.60-5.2); RDW 15.5 % (11.6-15.6)
[2020-05-04 09:25] LABS: CALCIUM 8.6 mg/dL (8.5-10.1)
[2020-05-04 09:26] LABS: ALBUMIN 2.7 g/dl (3.4-5.0); BLOOD UREA NITROGEN 19.5 mg/dL (7-18)
[2020-05-04 09:29] LABS: CREATININE 0.6 mg/dL (0.55-1.3); PHOSPHOROUS 3.6 mg/dL (2.5-4.9)
[2020-05-04 09:30] LABS: BILIRUBIN,TOTAL 0.4 mg/dL (0.2-1)
[2020-05-04 09:31] LABS: TOT PROT 6.6 g/dl (6.4-8.2)
[2020-05-04] MEDS: FOLIC ACID 1 MG TABLET (FP) PO SCH (09:43)
[2020-05-04] MEDS: PANTOPRAZOLE 20 MG TABLET PO SCH (09:43)
[2020-05-04] MEDS: THIAMINE HCL 100 MG TABLET (FP) PO SCH (09:43)
[2020-05-04] MEDS: amLODIPine BESYLATE 10 MG TABLET (FP) PO SCH (09:43)
[2020-05-04] MEDS: MULTIVITAMINS (DAILY MVI) TABLET (FP) PO SCH (09:43)
[2020-05-04] MEDS: predniSONE 5 MG TABLET (UD) PO SCH (09:44)
[2020-05-04] MEDS: ENOXAPARIN NA (PORCINE) 40 MG/0.4 ML DISP.SYRIN SQ SCH (09:44)
[2020-05-04] MEDS: NICOTINE 7 MG/24 HOURS TOPICAL PATCH TD SCH (09:44)
[2020-05-04] MEDS: BUDESONIDE/FORMETEROL FUMARATE 160/4.5 mcg INHALER IH SCH ×2 (09:50→21:51)
[2020-05-04] MEDS ORDERED: MELATONIN 5 MG TABLETS PO ONE (21:38)
[2020-05-04 22:06] LABS: HEP B CORE AB, TOT Positive (Negative)
[2020-05-05] MEDS: NYSTATIN 500,000 UNITS/5 ML SUSPENSION PO SCH ×3 (01:28→12:12)
[2020-05-05] MEDS ORDERED: METHADONE HCL 40 MG DISPERSABLE TABLET ONE (05:33)
[2020-05-05] MEDS ORDERED: METHADONE HCL 10 MG TABLET ONE (05:33)
[2020-05-05] MEDS: METHADONE 120 MG, METHADONE 15 MG PO SCH (05:38)
[2020-05-05] MEDS: KETOROLAC TROMETHAMINE 10 MG TABLET PO PRN (05:46)
[2020-05-05 06:54] VITALS: TEMP 98.4
[2020-05-05] MEDS: ENOXAPARIN NA (PORCINE) 40 MG/0.4 ML DISP.SYRIN SQ SCH (10:05)
[2020-05-05] MEDS: MULTIVITAMINS (DAILY MVI) TABLET (FP) PO SCH (10:05)
[2020-05-05] MEDS: FOLIC ACID 1 MG TABLET (FP) PO SCH (10:06)
[2020-05-05] MEDS: THIAMINE HCL 100 MG TABLET (FP) PO SCH (10:06)
[2020-05-05] MEDS: PANTOPRAZOLE 20 MG TABLET PO SCH (10:06)
[2020-05-05] MEDS: amLODIPine BESYLATE 10 MG TABLET (FP) PO SCH (10:06)
[2020-05-05] MEDS: BUDESONIDE/FORMETEROL FUMARATE 160/4.5 mcg INHALER IH SCH (10:21)
[2020-05-05] MEDS: predniSONE 5 MG TABLET (UD) PO SCH (10:32)
[2020-05-05] MEDS: NICOTINE 7 MG/24 HOURS TOPICAL PATCH TD SCH (10:32)
[2020-05-05 12:14] VITALS: PULSE 72
[2020-05-05 16:08] VITALS: BP 121/70
[2020-05-05] MEDS ORDERED: MELATONIN 5 MG TABLETS PO PRN (22:00)
== END 2020-05-05 17:13 | disposition other institution (70) ==
LOC: JER 10:51 → INTOOBSV 05-01 00:20 → JERBED 05-01 00:20 → UNDOADMOB 05-01 00:20 → JERBED 05-01 00:27 → J6WEST-2 05-02 13:50
PROVIDERS: ADMIT Internal Medicine; ATTEND Student in an Organized Health Care Education/Training Program
PROC: 3E023GC Introduction of Other Therapeutic Substance into Muscle, Percutaneous Approach (ICD-10-PCS; principal; 2020-05-01)
PROC: 3E0233Z Introduction of Anti-inflammatory into Muscle, Percutaneous Approach (ICD-10-PCS; 2020-05-01)
PROC: 3E0337Z Introduction of Electrolytic and Water Balance Substance into Peripheral Vein, Percutaneous Approach (ICD-10-PCS; 2020-05-01)
DX: M54.32 Sciatica, left side (principal); R60.9 Edema, unspecified; F19.10 Other psychoactive substance abuse, uncomplicated; K21.9 Gastro-esophageal reflux disease without esophagitis; I10 Essential (primary) hypertension; J45.909 Unspecified asthma, uncomplicated; R20.0 Anesthesia of skin; R20.2 Paresthesia of skin; M79.18 Myalgia, other site; F10.99 Alcohol use, unspecified with unspecified alcohol-induced disorder; M54.9 Dorsalgia, unspecified; Z20.2 Contact with and (suspected) exposure to infections with a predominantly sexual mode of transmission; Z86.19 Personal history of other infectious and parasitic diseases; F11.20 Opioid dependence, uncomplicated; B19.20 Unspecified viral hepatitis C without hepatic coma; Z29.9 Encounter for prophylactic measures, unspecified; Z76.5 Malingerer [conscious simulation]; Z91.013 Allergy to seafood; F17.210 Nicotine dependence, cigarettes, uncomplicated
CPT/HCPCS: 36415; 70450-TC; 71046-TC-FY; 72132-TC; 72193-TC; 73523-TC-FY; 74177-TC; 76705-TC; 80053; 80074; 83735; 83880; 84100; 84484; 85025; 85027; 85610; 86704; 86706; 86707; 86708; 86709; 87340; 87389; 87522; 93005; 93010; 93970-TC; 96360; 96361; 96372; 97116-GP; 97161-GP; 99285-25; C9803; G0378; Q9967; U0003

== ENCOUNTER 2020-05-05 16:15 | Inpatient (IN) | payer OTHER ==
[2020-05-05] MEDS ORDERED: ALBUTEROL SO4 HFA INHALER IH PRN (17:21)
[2020-05-05] MEDS ORDERED: ACETAMINOPHEN 325 MG TABLET (FP) PO PRN (17:26)
[2020-05-05] MEDS ORDERED: MAGNESIUM CITRATE 300 ML BOTTLE PO PRN (17:26)
[2020-05-05] MEDS ORDERED: MAGNESIUM HYDROX 2400MG/30ML ORAL SUSPENSION 30 ML CUP PO PRN (17:26)
[2020-05-05] MEDS ORDERED: P-EPHED 60MG/TRIPROLIDI 2.5MG TABLET PO PRN (17:26)
[2020-05-05] MEDS ORDERED: MAG HYDROX/AL HYDROX/SIMETH 30 ML UNIT-DOSE CUP PO PRN (17:26)
[2020-05-05] MEDS ORDERED: LOPERAMIDE HCL 2 MG CAPSULE PO PRN (17:26)
[2020-05-05] MEDS ORDERED: guaiFENesin 200 MG/10 ML 10 ML UNIT-DOSE CUPS PO PRN (17:26)
[2020-05-05 18:17] VITALS: BMI 29.2
[2020-05-05] MEDS: hydrOXYzine PAMOATE 25 MG CAPSULE (FP) PO PRN (19:41)
[2020-05-05] MEDS: NYSTATIN 500,000 UNITS/5 ML SUSPENSION PO SCH ×3 (19:57→23:44)
[2020-05-05] MEDS: MELATONIN 5 MG TABLETS PO SCH (21:34)
[2020-05-05] MEDS: BUDESONIDE/FORMETEROL FUMARATE 160/4.5 mcg INHALER IH SCH (21:35)
[2020-05-05] MEDS: THIAMINE HCL 100 MG TABLET (FP) PO SCH (21:35)
[2020-05-06] MEDS ORDERED: METHADONE HCL 10 MG TABLET ONE (05:55)
[2020-05-06] MEDS ORDERED: METHADONE HCL 40 MG DISPERSABLE TABLET ONE (05:55)
[2020-05-06] MEDS ORDERED: METHADONE HCL 5 MG TABLET ONE (05:55)
[2020-05-06] MEDS: METHADONE 120 MG, METHADONE 10 MG, METHADONE 5 MG PO SCH (06:24)
[2020-05-06] MEDS: NYSTATIN 500,000 UNITS/5 ML SUSPENSION PO SCH ×4 (06:24→23:45)
[2020-05-06] MEDS: hydrOXYzine PAMOATE 25 MG CAPSULE (FP) PO PRN ×5 (06:52→23:45)
[2020-05-06] MEDS ORDERED: METHADONE HCL 40 MG DISPERSABLE TABLET PO SCH (10:00)
[2020-05-06] MEDS: predniSONE 5 MG TABLET (UD) PO SCH (10:12)
[2020-05-06] MEDS: amLODIPine BESYLATE 10 MG TABLET (FP) PO SCH (10:19)
[2020-05-06] MEDS: PANTOPRAZOLE 20 MG TABLET PO SCH (10:19)
[2020-05-06] MEDS: PRENATAL VITAMINS W/ FOLIC ACID TABLET (FP) PO SCH (10:20)
[2020-05-06] MEDS: BUDESONIDE/FORMETEROL FUMARATE 160/4.5 mcg INHALER IH SCH ×2 (10:20→21:10)
[2020-05-06] MEDS: NICOTINE 7 MG/24 HOURS TOPICAL PATCH TD SCH (10:22)
[2020-05-06] MEDS: LIDOCAINE 5% TOPICAL PATCH TP SCH (11:27)
[2020-05-06 17:33] LABS: EPI CELLS 7 /uL (0-25.1); HYALINE CASTS 1 /uL (0-3.1); PH,URINE 5.5 (5.0-8.0); URINE APPEARANCE CLEAR; URINE BACTERIA 4619 /uL (0-1359); URINE BILIRUBIN NEGATIVE (NEGATIVE); URINE COLOR YELLOW; URINE GLUCOSE (UA) NEGATIVE (NEGATIVE); URINE KETONE NEGATIVE (NEGATIVE); URINE LEUK ESTERASE 2+ (NEGATIVE); URINE NITRITE NEGATIVE (NEGATIVE); URINE PROTEIN NEGATIVE (NEGATIVE); URINE RBC 3 /uL (0-23.9); URINE WBC 56 /uL (0-25.8)
[2020-05-06] MEDS: MELATONIN 5 MG TABLETS PO SCH (21:08)
[2020-05-06] MEDS: THIAMINE HCL 100 MG TABLET (FP) PO SCH (21:09)
[2020-05-06] MEDS: METHYL SALICYLATE/MENTHOL OINT 30 GM TUBE TP SCH (21:10)
[2020-05-06] MEDS: LIDOCAINE PATCH REMOVAL MC SCH (21:11)
[2020-05-07] MEDS ORDERED: METHADONE HCL 40 MG DISPERSABLE TABLET ONE (03:15)
[2020-05-07] MEDS ORDERED: METHADONE HCL 5 MG TABLET ONE (03:15)
[2020-05-07] MEDS ORDERED: METHADONE HCL 10 MG TABLET ONE (03:15)
[2020-05-07] MEDS: NYSTATIN 500,000 UNITS/5 ML SUSPENSION PO SCH ×4 (05:58→23:35)
[2020-05-07] MEDS: METHADONE 120 MG, METHADONE 10 MG, METHADONE 5 MG PO SCH (05:59)
[2020-05-07] MEDS: hydrOXYzine PAMOATE 25 MG CAPSULE (FP) PO PRN ×5 (06:00→21:21)
[2020-05-07] MEDS: NICOTINE 7 MG/24 HOURS TOPICAL PATCH TD SCH (09:15)
[2020-05-07] MEDS: LIDOCAINE 5% TOPICAL PATCH TP SCH (09:15)
[2020-05-07] MEDS: amLODIPine BESYLATE 10 MG TABLET (FP) PO SCH (09:15)
[2020-05-07] MEDS: PRENATAL VITAMINS W/ FOLIC ACID TABLET (FP) PO SCH (09:15)
[2020-05-07] MEDS: predniSONE 5 MG TABLET (UD) PO SCH (09:15)
[2020-05-07] MEDS: PANTOPRAZOLE 20 MG TABLET PO SCH (09:15)
[2020-05-07] MEDS: BUDESONIDE/FORMETEROL FUMARATE 160/4.5 mcg INHALER IH SCH ×2 (09:16→21:22)
[2020-05-07] MEDS: AMOXICILLIN 500 MG CAPSULE (FP) PO SCH ×2 (13:02→21:20)
[2020-05-07] MEDS: THIAMINE HCL 100 MG TABLET (FP) PO SCH (21:20)
[2020-05-07] MEDS: MELATONIN 5 MG TABLETS PO SCH (21:21)
[2020-05-07] MEDS: METHYL SALICYLATE/MENTHOL OINT 30 GM TUBE TP SCH (21:21)
[2020-05-07] MEDS: LIDOCAINE PATCH REMOVAL MC SCH (21:21)
[2020-05-08] MEDS: hydrOXYzine PAMOATE 25 MG CAPSULE (FP) PO PRN ×4 (03:12→21:22)
[2020-05-08] MEDS ORDERED: METHADONE HCL 10 MG TABLET ONE (03:22)
[2020-05-08] MEDS ORDERED: METHADONE HCL 40 MG DISPERSABLE TABLET ONE (03:22)
[2020-05-08] MEDS ORDERED: METHADONE HCL 5 MG TABLET ONE (03:22)
[2020-05-08] MEDS: AMOXICILLIN 500 MG CAPSULE (FP) PO SCH ×3 (06:39→21:21)
[2020-05-08] MEDS: NYSTATIN 500,000 UNITS/5 ML SUSPENSION PO SCH ×4 (06:39→23:55)
[2020-05-08] MEDS: METHADONE 120 MG, METHADONE 10 MG, METHADONE 5 MG PO SCH (06:39)
[2020-05-08] MEDS: predniSONE 5 MG TABLET (UD) PO SCH (10:09)
[2020-05-08] MEDS: NICOTINE 7 MG/24 HOURS TOPICAL PATCH TD SCH (10:09)
[2020-05-08] MEDS: PRENATAL VITAMINS W/ FOLIC ACID TABLET (FP) PO SCH (10:09)
[2020-05-08] MEDS: LIDOCAINE 5% TOPICAL PATCH TP SCH (10:09)
[2020-05-08] MEDS: PANTOPRAZOLE 20 MG TABLET PO SCH (10:09)
[2020-05-08] MEDS: amLODIPine BESYLATE 10 MG TABLET (FP) PO SCH (10:09)
[2020-05-08] MEDS: BUDESONIDE/FORMETEROL FUMARATE 160/4.5 mcg INHALER IH SCH ×2 (10:10→21:22)
[2020-05-08] MEDS: MELATONIN 5 MG TABLETS PO SCH (21:21)
[2020-05-08] MEDS: METHYL SALICYLATE/MENTHOL OINT 30 GM TUBE TP SCH (21:21)
[2020-05-08] MEDS: THIAMINE HCL 100 MG TABLET (FP) PO SCH (21:21)
[2020-05-08] MEDS: LIDOCAINE PATCH REMOVAL MC SCH (21:22)
[2020-05-09] MEDS ORDERED: METHADONE HCL 10 MG TABLET ONE (03:20)
[2020-05-09] MEDS ORDERED: METHADONE HCL 5 MG TABLET ONE (03:20)
[2020-05-09] MEDS ORDERED: METHADONE HCL 40 MG DISPERSABLE TABLET ONE (03:20)
[2020-05-09] MEDS: NYSTATIN 500,000 UNITS/5 ML SUSPENSION PO SCH ×4 (06:23→23:32)
[2020-05-09] MEDS: hydrOXYzine PAMOATE 25 MG CAPSULE (FP) PO PRN ×4 (06:23→21:29)
[2020-05-09] MEDS: AMOXICILLIN 500 MG CAPSULE (FP) PO SCH ×3 (06:23→21:29)
[2020-05-09] MEDS: METHADONE 120 MG, METHADONE 10 MG, METHADONE 5 MG PO SCH (06:24)
[2020-05-09] MEDS: PRENATAL VITAMINS W/ FOLIC ACID TABLET (FP) PO SCH (09:56)
[2020-05-09] MEDS: LIDOCAINE 5% TOPICAL PATCH TP SCH (09:56)
[2020-05-09] MEDS: BUDESONIDE/FORMETEROL FUMARATE 160/4.5 mcg INHALER IH SCH ×2 (09:56→21:30)
[2020-05-09] MEDS: amLODIPine BESYLATE 10 MG TABLET (FP) PO SCH (09:56)
[2020-05-09] MEDS: PANTOPRAZOLE 20 MG TABLET PO SCH (09:56)
[2020-05-09] MEDS: NICOTINE 7 MG/24 HOURS TOPICAL PATCH TD SCH (09:56)
[2020-05-09] MEDS: THIAMINE HCL 100 MG TABLET (FP) PO SCH (21:29)
[2020-05-09] MEDS: MELATONIN 5 MG TABLETS PO SCH (21:29)
[2020-05-09] MEDS: LIDOCAINE PATCH REMOVAL MC SCH (21:30)
[2020-05-09] MEDS: METHYL SALICYLATE/MENTHOL OINT 30 GM TUBE TP SCH (21:30)
[2020-05-10] MEDS ORDERED: METHADONE HCL 40 MG DISPERSABLE TABLET ONE (03:49)
[2020-05-10] MEDS ORDERED: METHADONE HCL 5 MG TABLET ONE (03:50)
[2020-05-10] MEDS ORDERED: METHADONE HCL 10 MG TABLET ONE (03:50)
[2020-05-10] MEDS: METHADONE 120 MG, METHADONE 10 MG, METHADONE 5 MG PO SCH (06:27)
[2020-05-10] MEDS: NYSTATIN 500,000 UNITS/5 ML SUSPENSION PO SCH ×4 (06:28→23:30)
[2020-05-10] MEDS: hydrOXYzine PAMOATE 25 MG CAPSULE (FP) PO PRN ×4 (06:28→21:42)
[2020-05-10] MEDS: AMOXICILLIN 500 MG CAPSULE (FP) PO SCH ×3 (06:28→21:40)
[2020-05-10] MEDS: BUDESONIDE/FORMETEROL FUMARATE 160/4.5 mcg INHALER IH SCH ×2 (10:26→21:41)
[2020-05-10] MEDS: PANTOPRAZOLE 20 MG TABLET PO SCH (10:26)
[2020-05-10] MEDS: PRENATAL VITAMINS W/ FOLIC ACID TABLET (FP) PO SCH (10:26)
[2020-05-10] MEDS: amLODIPine BESYLATE 10 MG TABLET (FP) PO SCH (10:26)
[2020-05-10] MEDS: LIDOCAINE 5% TOPICAL PATCH TP SCH (10:27)
[2020-05-10] MEDS: NICOTINE 7 MG/24 HOURS TOPICAL PATCH TD SCH (10:28)
[2020-05-10] MEDS ORDERED: PT OWN MED DRAWER 7, Y5N ONE (11:07)
[2020-05-10] MEDS: THIAMINE HCL 100 MG TABLET (FP) PO SCH (21:40)
[2020-05-10] MEDS: MELATONIN 5 MG TABLETS PO SCH (21:40)
[2020-05-10] MEDS: METHYL SALICYLATE/MENTHOL OINT 30 GM TUBE TP SCH (21:41)
[2020-05-10] MEDS: LIDOCAINE PATCH REMOVAL MC SCH (21:41)
[2020-05-11] MEDS ORDERED: METHADONE HCL 40 MG DISPERSABLE TABLET ONE (03:16)
[2020-05-11] MEDS ORDERED: METHADONE HCL 5 MG TABLET ONE (03:17)
[2020-05-11] MEDS ORDERED: METHADONE HCL 10 MG TABLET ONE (03:17)
[2020-05-11] MEDS: AMOXICILLIN 500 MG CAPSULE (FP) PO SCH ×3 (05:57→21:16)
[2020-05-11] MEDS: METHADONE 120 MG, METHADONE 10 MG, METHADONE 5 MG PO SCH (05:57)
[2020-05-11] MEDS: hydrOXYzine PAMOATE 25 MG CAPSULE (FP) PO PRN ×4 (05:57→21:16)
[2020-05-11] MEDS: NYSTATIN 500,000 UNITS/5 ML SUSPENSION PO SCH ×4 (05:57→23:37)
[2020-05-11] MEDS: LIDOCAINE 5% TOPICAL PATCH TP SCH (10:32)
[2020-05-11] MEDS: PANTOPRAZOLE 20 MG TABLET PO SCH (10:32)
[2020-05-11] MEDS: NICOTINE 7 MG/24 HOURS TOPICAL PATCH TD SCH (10:33)
[2020-05-11] MEDS: BUDESONIDE/FORMETEROL FUMARATE 160/4.5 mcg INHALER IH SCH ×2 (10:33→21:17)
[2020-05-11] MEDS: amLODIPine BESYLATE 10 MG TABLET (FP) PO SCH (10:33)
[2020-05-11] MEDS: PRENATAL VITAMINS W/ FOLIC ACID TABLET (FP) PO SCH (10:33)
[2020-05-11] MEDS: IBUPROFEN 400 MG TABLET (FP) PO PRN (14:44)
[2020-05-11] MEDS: THIAMINE HCL 100 MG TABLET (FP) PO SCH (21:16)
[2020-05-11] MEDS: MELATONIN 5 MG TABLETS PO SCH (21:16)
[2020-05-11] MEDS: LIDOCAINE PATCH REMOVAL MC SCH (21:17)
[2020-05-11] MEDS: METHYL SALICYLATE/MENTHOL OINT 30 GM TUBE TP SCH (21:17)
[2020-05-12] MEDS ORDERED: METHADONE HCL 40 MG DISPERSABLE TABLET ONE (03:15)
[2020-05-12] MEDS ORDERED: METHADONE HCL 10 MG TABLET ONE (03:15)
[2020-05-12] MEDS ORDERED: METHADONE HCL 5 MG TABLET ONE (03:15)
[2020-05-12] MEDS: NYSTATIN 500,000 UNITS/5 ML SUSPENSION PO SCH (06:06)
[2020-05-12] MEDS: METHADONE 120 MG, METHADONE 10 MG, METHADONE 5 MG PO SCH (06:07)
[2020-05-12] MEDS: hydrOXYzine PAMOATE 25 MG CAPSULE (FP) PO PRN ×4 (06:08→21:23)
[2020-05-12] MEDS: AMOXICILLIN 500 MG CAPSULE (FP) PO SCH ×3 (06:08→21:22)
[2020-05-12] MEDS: amLODIPine BESYLATE 10 MG TABLET (FP) PO SCH (09:22)
[2020-05-12] MEDS: PRENATAL VITAMINS W/ FOLIC ACID TABLET (FP) PO SCH (09:23)
[2020-05-12] MEDS: PANTOPRAZOLE 20 MG TABLET PO SCH (09:23)
[2020-05-12] MEDS: LIDOCAINE 5% TOPICAL PATCH TP SCH (09:23)
[2020-05-12] MEDS: IBUPROFEN 400 MG TABLET (FP) PO PRN (09:23)
[2020-05-12] MEDS: BUDESONIDE/FORMETEROL FUMARATE 160/4.5 mcg INHALER IH SCH ×2 (09:23→21:53)
[2020-05-12] MEDS: NICOTINE 7 MG/24 HOURS TOPICAL PATCH TD SCH (09:23)
[2020-05-12] MEDS: MELATONIN 5 MG TABLETS PO SCH (21:23)
[2020-05-12] MEDS: THIAMINE HCL 100 MG TABLET (FP) PO SCH (21:23)
[2020-05-12] MEDS: LIDOCAINE PATCH REMOVAL MC SCH (21:23)
[2020-05-12] MEDS: METHYL SALICYLATE/MENTHOL OINT 30 GM TUBE TP SCH (21:24)
[2020-05-13] MEDS ORDERED: METHADONE HCL 40 MG DISPERSABLE TABLET ONE (05:51)
[2020-05-13] MEDS ORDERED: METHADONE HCL 5 MG TABLET ONE (05:52)
[2020-05-13] MEDS ORDERED: METHADONE HCL 10 MG TABLET ONE (05:52)
[2020-05-13] MEDS: hydrOXYzine PAMOATE 25 MG CAPSULE (FP) PO PRN ×4 (06:12→21:19)
[2020-05-13] MEDS: AMOXICILLIN 500 MG CAPSULE (FP) PO SCH ×3 (06:12→21:19)
[2020-05-13] MEDS: METHADONE 120 MG, METHADONE 10 MG, METHADONE 5 MG PO SCH (06:12)
[2020-05-13] MEDS: BUDESONIDE/FORMETEROL FUMARATE 160/4.5 mcg INHALER IH SCH ×2 (10:13→21:20)
[2020-05-13] MEDS: PANTOPRAZOLE 20 MG TABLET PO SCH (10:13)
[2020-05-13] MEDS: LIDOCAINE 5% TOPICAL PATCH TP SCH (10:13)
[2020-05-13] MEDS: IBUPROFEN 400 MG TABLET (FP) PO PRN ×2 (10:13→21:19)
[2020-05-13] MEDS: PRENATAL VITAMINS W/ FOLIC ACID TABLET (FP) PO SCH (10:13)
[2020-05-13] MEDS: amLODIPine BESYLATE 10 MG TABLET (FP) PO SCH (10:14)
[2020-05-13] MEDS: NICOTINE 7 MG/24 HOURS TOPICAL PATCH TD SCH (10:14)
[2020-05-13] MEDS: MELATONIN 5 MG TABLETS PO SCH (21:18)
[2020-05-13] MEDS: THIAMINE HCL 100 MG TABLET (FP) PO SCH (21:18)
[2020-05-13] MEDS: LIDOCAINE PATCH REMOVAL MC SCH (21:20)
[2020-05-13] MEDS: METHYL SALICYLATE/MENTHOL OINT 30 GM TUBE TP SCH (21:20)
[2020-05-14] MEDS ORDERED: METHADONE HCL 5 MG TABLET ONE (03:17)
[2020-05-14] MEDS ORDERED: METHADONE HCL 40 MG DISPERSABLE TABLET ONE (03:17)
[2020-05-14] MEDS ORDERED: METHADONE HCL 10 MG TABLET ONE (03:18)
[2020-05-14] MEDS: AMOXICILLIN 500 MG CAPSULE (FP) PO SCH (06:12)
[2020-05-14] MEDS: METHADONE 120 MG, METHADONE 10 MG, METHADONE 5 MG PO SCH (06:13)
[2020-05-14] MEDS: hydrOXYzine PAMOATE 25 MG CAPSULE (FP) PO PRN ×4 (06:13→21:19)
[2020-05-14] MEDS: LIDOCAINE 5% TOPICAL PATCH TP SCH (10:04)
[2020-05-14] MEDS: NICOTINE 7 MG/24 HOURS TOPICAL PATCH TD SCH (10:04)
[2020-05-14] MEDS: PRENATAL VITAMINS W/ FOLIC ACID TABLET (FP) PO SCH (10:04)
[2020-05-14] MEDS: PANTOPRAZOLE 20 MG TABLET PO SCH (10:04)
[2020-05-14] MEDS: amLODIPine BESYLATE 10 MG TABLET (FP) PO SCH (10:04)
[2020-05-14] MEDS: BUDESONIDE/FORMETEROL FUMARATE 160/4.5 mcg INHALER IH SCH ×2 (10:05→21:20)
[2020-05-14] MEDS: THIAMINE HCL 100 MG TABLET (FP) PO SCH (21:18)
[2020-05-14] MEDS: MELATONIN 5 MG TABLETS PO SCH (21:18)
[2020-05-14] MEDS: LIDOCAINE PATCH REMOVAL MC SCH (21:20)
[2020-05-14] MEDS: METHYL SALICYLATE/MENTHOL OINT 30 GM TUBE TP SCH (21:20)
[2020-05-15] MEDS ORDERED: METHADONE HCL 40 MG DISPERSABLE TABLET ONE (05:30)
[2020-05-15] MEDS ORDERED: METHADONE HCL 5 MG TABLET ONE (05:31)
[2020-05-15] MEDS ORDERED: METHADONE HCL 10 MG TABLET ONE (05:31)
[2020-05-15] MEDS ORDERED: MASKS NR ONE (06:19)
[2020-05-15] MEDS: METHADONE 120 MG, METHADONE 10 MG, METHADONE 5 MG PO SCH (06:24)
[2020-05-15] MEDS: hydrOXYzine PAMOATE 25 MG CAPSULE (FP) PO PRN ×3 (06:40→18:16)
[2020-05-15] MEDS: BUDESONIDE/FORMETEROL FUMARATE 160/4.5 mcg INHALER IH SCH ×2 (10:05→21:34)
[2020-05-15] MEDS: LIDOCAINE 5% TOPICAL PATCH TP SCH (10:05)
[2020-05-15] MEDS: amLODIPine BESYLATE 10 MG TABLET (FP) PO SCH (10:05)
[2020-05-15] MEDS: NICOTINE 7 MG/24 HOURS TOPICAL PATCH TD SCH (10:05)
[2020-05-15] MEDS: PANTOPRAZOLE 20 MG TABLET PO SCH (10:05)
[2020-05-15] MEDS: PRENATAL VITAMINS W/ FOLIC ACID TABLET (FP) PO SCH (10:05)
[2020-05-15] MEDS: MELATONIN 5 MG TABLETS PO SCH (21:33)
[2020-05-15] MEDS: LIDOCAINE PATCH REMOVAL MC SCH (21:34)
[2020-05-15] MEDS: THIAMINE HCL 100 MG TABLET (FP) PO SCH (21:34)
[2020-05-15] MEDS: METHYL SALICYLATE/MENTHOL OINT 30 GM TUBE TP SCH (21:34)
[2020-05-16] MEDS ORDERED: METHADONE HCL 5 MG TABLET ONE (03:11)
[2020-05-16] MEDS ORDERED: METHADONE HCL 10 MG TABLET ONE (03:11)
[2020-05-16] MEDS ORDERED: METHADONE HCL 40 MG DISPERSABLE TABLET ONE (03:11)
[2020-05-16] MEDS: METHADONE 120 MG, METHADONE 10 MG, METHADONE 5 MG PO SCH (06:08)
[2020-05-16] MEDS: IBUPROFEN 400 MG TABLET (FP) PO PRN (06:09)
[2020-05-16] MEDS: hydrOXYzine PAMOATE 25 MG CAPSULE (FP) PO PRN ×3 (06:09→18:29)
[2020-05-16] MEDS: amLODIPine BESYLATE 10 MG TABLET (FP) PO SCH (09:36)
[2020-05-16] MEDS: NICOTINE 7 MG/24 HOURS TOPICAL PATCH TD SCH (09:36)
[2020-05-16] MEDS: PRENATAL VITAMINS W/ FOLIC ACID TABLET (FP) PO SCH (09:36)
[2020-05-16] MEDS: BUDESONIDE/FORMETEROL FUMARATE 160/4.5 mcg INHALER IH SCH ×2 (09:36→22:11)
[2020-05-16] MEDS: PANTOPRAZOLE 20 MG TABLET PO SCH (09:36)
[2020-05-16] MEDS: LIDOCAINE 5% TOPICAL PATCH TP SCH (09:37)
[2020-05-16] MEDS: THIAMINE HCL 100 MG TABLET (FP) PO SCH (21:23)
[2020-05-16] MEDS: LIDOCAINE PATCH REMOVAL MC SCH (21:23)
[2020-05-16] MEDS: MELATONIN 5 MG TABLETS PO SCH (21:23)
[2020-05-16] MEDS: METHYL SALICYLATE/MENTHOL OINT 30 GM TUBE TP SCH (21:23)
[2020-05-17] MEDS ORDERED: METHADONE HCL 5 MG TABLET ONE (03:24)
[2020-05-17] MEDS ORDERED: METHADONE HCL 40 MG DISPERSABLE TABLET ONE (03:24)
[2020-05-17] MEDS ORDERED: METHADONE HCL 10 MG TABLET ONE (03:24)
[2020-05-17] MEDS: hydrOXYzine PAMOATE 25 MG CAPSULE (FP) PO PRN ×3 (06:03→18:40)
[2020-05-17] MEDS: METHADONE 120 MG, METHADONE 10 MG, METHADONE 5 MG PO SCH (06:03)
[2020-05-17] MEDS: PANTOPRAZOLE 20 MG TABLET PO SCH (10:27)
[2020-05-17] MEDS: LIDOCAINE 5% TOPICAL PATCH TP SCH (10:27)
[2020-05-17] MEDS: amLODIPine BESYLATE 10 MG TABLET (FP) PO SCH (10:27)
[2020-05-17] MEDS: NICOTINE 7 MG/24 HOURS TOPICAL PATCH TD SCH (10:27)
[2020-05-17] MEDS: PRENATAL VITAMINS W/ FOLIC ACID TABLET (FP) PO SCH (10:27)
[2020-05-17] MEDS: IBUPROFEN 400 MG TABLET (FP) PO PRN (10:28)
[2020-05-17] MEDS: BUDESONIDE/FORMETEROL FUMARATE 160/4.5 mcg INHALER IH SCH ×2 (10:58→21:21)
[2020-05-17] MEDS: THIAMINE HCL 100 MG TABLET (FP) PO SCH (21:20)
[2020-05-17] MEDS: MELATONIN 5 MG TABLETS PO SCH (21:20)
[2020-05-17] MEDS: LIDOCAINE PATCH REMOVAL MC SCH (21:21)
[2020-05-17] MEDS: METHYL SALICYLATE/MENTHOL OINT 30 GM TUBE TP SCH (21:21)
[2020-05-18] MEDS ORDERED: METHADONE HCL 40 MG DISPERSABLE TABLET ONE (05:49)
[2020-05-18] MEDS ORDERED: METHADONE HCL 10 MG TABLET ONE (05:50)
[2020-05-18] MEDS ORDERED: METHADONE HCL 5 MG TABLET ONE (05:50)
[2020-05-18] MEDS: METHADONE 120 MG, METHADONE 10 MG, METHADONE 5 MG PO SCH (05:50)
[2020-05-18] MEDS: hydrOXYzine PAMOATE 25 MG CAPSULE (FP) PO PRN ×4 (05:52→21:20)
[2020-05-18] MEDS: PRENATAL VITAMINS W/ FOLIC ACID TABLET (FP) PO SCH (10:25)
[2020-05-18] MEDS: IBUPROFEN 400 MG TABLET (FP) PO PRN (10:25)
[2020-05-18] MEDS: PANTOPRAZOLE 20 MG TABLET PO SCH (10:25)
[2020-05-18] MEDS: BUDESONIDE/FORMETEROL FUMARATE 160/4.5 mcg INHALER IH SCH ×2 (10:25→21:20)
[2020-05-18] MEDS: amLODIPine BESYLATE 10 MG TABLET (FP) PO SCH (10:26)
[2020-05-18] MEDS: NICOTINE 7 MG/24 HOURS TOPICAL PATCH TD SCH (10:26)
[2020-05-18] MEDS: LIDOCAINE 5% TOPICAL PATCH TP SCH (10:26)
[2020-05-18] MEDS: METHYL SALICYLATE/MENTHOL OINT 30 GM TUBE TP SCH (21:20)
[2020-05-18] MEDS: MELATONIN 5 MG TABLETS PO SCH (21:20)
[2020-05-18] MEDS: THIAMINE HCL 100 MG TABLET (FP) PO SCH (21:20)
[2020-05-18] MEDS: LIDOCAINE PATCH REMOVAL MC SCH (21:20)
[2020-05-19] MEDS ORDERED: METHADONE HCL 40 MG DISPERSABLE TABLET ONE (03:15)
[2020-05-19] MEDS ORDERED: METHADONE HCL 10 MG TABLET ONE (03:16)
[2020-05-19] MEDS ORDERED: METHADONE HCL 5 MG TABLET ONE (03:16)
[2020-05-19] MEDS: METHADONE 120 MG, METHADONE 10 MG, METHADONE 5 MG PO SCH (06:10)
[2020-05-19] MEDS: hydrOXYzine PAMOATE 25 MG CAPSULE (FP) PO PRN ×2 (06:11→09:24)
[2020-05-19 07:03] VITALS: BP 136/69; PULSE 70; TEMP 97.7
[2020-05-19] MEDS: LIDOCAINE 5% TOPICAL PATCH TP SCH (09:24)
[2020-05-19] MEDS: PANTOPRAZOLE 20 MG TABLET PO SCH (09:24)
[2020-05-19] MEDS: amLODIPine BESYLATE 10 MG TABLET (FP) PO SCH (09:24)
[2020-05-19] MEDS: NICOTINE 7 MG/24 HOURS TOPICAL PATCH TD SCH (09:24)
[2020-05-19] MEDS: BUDESONIDE/FORMETEROL FUMARATE 160/4.5 mcg INHALER IH SCH (09:24)
[2020-05-19] MEDS: PRENATAL VITAMINS W/ FOLIC ACID TABLET (FP) PO SCH (09:27)
== END 2020-05-19 10:00 | disposition home or self-care (01) | DRG 895 ==
LOC: YASAS 16:15 → Y3W 18:16
PROVIDERS: ADMIT Allergy & Immunology; ATTEND Allergy & Immunology
PROC: HZ42ZZZ Group Counseling for Substance Abuse Treatment, Cognitive-Behavioral (ICD-10-PCS; principal; 2020-05-05)
DX: F10.20 Alcohol dependence, uncomplicated (principal); F14.20 Cocaine dependence, uncomplicated; F11.20 Opioid dependence, uncomplicated; N39.0 Urinary tract infection, site not specified; F17.210 Nicotine dependence, cigarettes, uncomplicated; I10 Essential (primary) hypertension; J45.909 Unspecified asthma, uncomplicated; K21.9 Gastro-esophageal reflux disease without esophagitis; B18.2 Chronic viral hepatitis C; Z91.013 Allergy to seafood
CPT/HCPCS: 81003; 87086; 87186; C9803; U0003

== ENCOUNTER 2020-12-07 14:38 | Inpatient (IN) | payer OTHER ==
[2020-12-07 18:12] VITALS: BMI 24.7
[2020-12-07] MEDS ORDERED: ONDANSETRON *ODT* 4 MG TABLET SL PRN (19:56)
[2020-12-07] MEDS ORDERED: MAGNESIUM HYDROX 2400MG/30ML ORAL SUSPENSION 30 ML CUP PO PRN (19:56)
[2020-12-07] MEDS ORDERED: MAG HYDROX/AL HYDROX/SIMETH 30 ML UNIT-DOSE CUP PO PRN (19:56)
[2020-12-07] MEDS ORDERED: LORazepam 1 MG TABLET PO PRN (19:56)
[2020-12-07] MEDS ORDERED: ACETAMINOPHEN 325 MG TABLET (FP) PO PRN ×2 (19:56)
[2020-12-07] MEDS ORDERED: MAGNESIUM CITRATE 300 ML BOTTLE PO PRN (19:56)
[2020-12-07] MEDS ORDERED: MENTHOL/PHENOL 1 EACH UD MM PRN (19:56)
[2020-12-07] MEDS ORDERED: BISMUTH SUBSALICYLATE 524 MG/30 ML PO PRN (19:56)
[2020-12-07] MEDS ORDERED: ALBUTEROL SO4 HFA INHALER IH PRN (19:59)
[2020-12-07] MEDS: LORazepam 2 MG TABLET PO SCH (23:36)
[2020-12-07] MEDS: MELATONIN 5 MG TABLETS PO SCH (23:37)
[2020-12-07] MEDS: BUDESONIDE/FORMETEROL FUMARATE 160/4.5 mcg INHALER IH SCH (23:37)
[2020-12-07] MEDS: BACITRACIN 0.9 GM PACKET TP SCH (23:37)
[2020-12-07] MEDS: THIAMINE HCL 100 MG TABLET (FP) PO SCH (23:38)
[2020-12-08] MEDS: LORazepam 2 MG TABLET PO SCH ×4 (06:22→22:40)
[2020-12-08] MEDS ORDERED: methaDONE HCL 10 MG TABLET PO ONE (09:11)
[2020-12-08] MEDS ORDERED: methaDONE HCL 10 MG TABLET ONE (09:51)
[2020-12-08] MEDS ORDERED: methaDONE HCL 40 MG DISPERSABLE TABLET ONE (09:52)
[2020-12-08] MEDS ORDERED: PATIENT'S OWN MEDICATION (NON-FORMULARY) (Meloxicam [Mobic] 15 MG Tablet) PO SCH (10:00)
[2020-12-08] MEDS: LORATADINE 10 MG TABLET PO SCH (10:37)
[2020-12-08] MEDS: amLODIPine BESYLATE 10 MG TABLET (FP) PO SCH (10:37)
[2020-12-08] MEDS: NICOTINE 14 MG/24 HOURS TOPICAL PATCH TD SCH (10:37)
[2020-12-08] MEDS: FOLIC ACID 1 MG TABLET (FP) PO SCH (10:37)
[2020-12-08] MEDS: BACITRACIN 0.9 GM PACKET TP SCH ×2 (10:37→22:40)
[2020-12-08] MEDS: PRENATAL VITAMINS W/ FOLIC ACID TABLET (FP) PO SCH (10:38)
[2020-12-08] MEDS: BUDESONIDE/FORMETEROL FUMARATE 160/4.5 mcg INHALER IH SCH ×2 (10:38→22:39)
[2020-12-08 11:20] LABS: CALCIUM 8.6 mg/dL (8.5-10.1)
[2020-12-08 11:21] LABS: ALBUMIN 2.7 g/dl (3.4-5.0); BLOOD UREA NITROGEN 9.9 mg/dL (7-18)
[2020-12-08 11:23] LABS: CREATININE 0.6 mg/dL (0.55-1.3)
[2020-12-08 11:24] LABS: BILIRUBIN,TOTAL 0.5 mg/dL (0.2-1); TOT PROT 7.5 g/dl (6.4-8.2)
[2020-12-08] MEDS: METHOCARBAMOL 500 MG TABLET PO PRN (18:02)
[2020-12-08] MEDS: IBUPROFEN 400 MG TABLET (FP) PO PRN (18:02)
[2020-12-08] MEDS: MELATONIN 5 MG TABLETS PO SCH (22:40)
[2020-12-08] MEDS: THIAMINE HCL 100 MG TABLET (FP) PO SCH (22:40)
[2020-12-08] MEDS: hydrOXYzine PAMOATE 25 MG CAPSULE (FP) PO PRN (23:22)
[2020-12-09] MEDS ORDERED: methaDONE HCL 40 MG DISPERSABLE TABLET ONE (04:48)
[2020-12-09] MEDS ORDERED: methaDONE HCL 10 MG TABLET ONE (04:48)
[2020-12-09] MEDS: LORazepam 1 MG TABLET PO SCH ×4 (05:32→22:38)
[2020-12-09] MEDS ORDERED: methaDONE HCL 40 MG DISPERSABLE TABLET PO SCH (06:00)
[2020-12-09] MEDS: METHOCARBAMOL 500 MG TABLET PO PRN ×2 (08:53→19:48)
[2020-12-09] MEDS ORDERED: AMMONIUM LACTATE 12% LOTION 225 GM BOTTLE TP PRN (10:11)
[2020-12-09] MEDS: BUDESONIDE/FORMETEROL FUMARATE 160/4.5 mcg INHALER IH SCH ×2 (10:20→22:38)
[2020-12-09] MEDS: BACITRACIN 0.9 GM PACKET TP SCH ×2 (10:20→22:38)
[2020-12-09] MEDS: NICOTINE 14 MG/24 HOURS TOPICAL PATCH TD SCH (10:20)
[2020-12-09] MEDS: LORATADINE 10 MG TABLET PO SCH (10:20)
[2020-12-09] MEDS: PRENATAL VITAMINS W/ FOLIC ACID TABLET (FP) PO SCH (10:20)
[2020-12-09] MEDS: amLODIPine BESYLATE 10 MG TABLET (FP) PO SCH (10:40)
[2020-12-09] MEDS: FOLIC ACID 1 MG TABLET (FP) PO SCH (10:40)
[2020-12-09 10:56] LABS: HEMATOCRIT 33.3 % (32.4-45.2); HEMOGLOBIN 11.3 GM/dL (10.7-15.3); MCHC 34.1 g/dl (32.0-36.0); MEAN PLT VOLUME 8.9 fl (7.5-11.1); PLATELET COUNT 296 10^3/uL (134-434); RBC 4.06 M/mm3 (3.60-5.2); RDW 15.7 % (11.6-15.6)
[2020-12-09] MEDS ORDERED: MASKS NR ONE (19:40)
[2020-12-09] MEDS: IBUPROFEN 400 MG TABLET (FP) PO PRN (19:48)
[2020-12-09] MEDS: THIAMINE HCL 100 MG TABLET (FP) PO SCH (22:38)
[2020-12-09] MEDS: MELATONIN 5 MG TABLETS PO SCH (22:39)
[2020-12-10] MEDS ORDERED: LORazepam 0.5 MG TABLET PO PRN
[2020-12-10] MEDS: METHOCARBAMOL 500 MG TABLET PO PRN ×2 (01:54→15:40)
[2020-12-10] MEDS ORDERED: methaDONE HCL 10 MG TABLET ONE (04:53)
[2020-12-10] MEDS ORDERED: methaDONE HCL 40 MG DISPERSABLE TABLET ONE (04:54)
[2020-12-10] MEDS: LORazepam 0.5 MG TABLET PO SCH ×4 (05:12→22:20)
[2020-12-10] MEDS: BACITRACIN 0.9 GM PACKET TP SCH ×2 (10:31→22:20)
[2020-12-10] MEDS: BUDESONIDE/FORMETEROL FUMARATE 160/4.5 mcg INHALER IH SCH ×2 (10:31→22:20)
[2020-12-10] MEDS: NICOTINE 14 MG/24 HOURS TOPICAL PATCH TD SCH (10:32)
[2020-12-10] MEDS: amLODIPine BESYLATE 10 MG TABLET (FP) PO SCH (10:32)
[2020-12-10] MEDS: LORATADINE 10 MG TABLET PO SCH (10:32)
[2020-12-10] MEDS: FOLIC ACID 1 MG TABLET (FP) PO SCH (10:32)
[2020-12-10] MEDS: PRENATAL VITAMINS W/ FOLIC ACID TABLET (FP) PO SCH (10:33)
[2020-12-10] MEDS: IBUPROFEN 400 MG TABLET (FP) PO PRN (18:05)
[2020-12-10] MEDS: MELATONIN 5 MG TABLETS PO SCH (22:20)
[2020-12-10] MEDS: THIAMINE HCL 100 MG TABLET (FP) PO SCH (22:20)
[2020-12-11] MEDS ORDERED: methaDONE HCL 10 MG TABLET ONE (04:29)
[2020-12-11] MEDS ORDERED: methaDONE HCL 40 MG DISPERSABLE TABLET ONE (04:30)
[2020-12-11] MEDS ORDERED: LORazepam 0.5 MG TABLET PO ONE (05:00)
[2020-12-11] MEDS: BACITRACIN 0.9 GM PACKET TP SCH ×2 (10:33→22:06)
[2020-12-11] MEDS: BUDESONIDE/FORMETEROL FUMARATE 160/4.5 mcg INHALER IH SCH ×2 (10:33→22:06)
[2020-12-11] MEDS: FOLIC ACID 1 MG TABLET (FP) PO SCH (10:34)
[2020-12-11] MEDS: amLODIPine BESYLATE 10 MG TABLET (FP) PO SCH (10:34)
[2020-12-11] MEDS: PRENATAL VITAMINS W/ FOLIC ACID TABLET (FP) PO SCH (10:34)
[2020-12-11] MEDS: LORATADINE 10 MG TABLET PO SCH (10:34)
[2020-12-11] MEDS: NICOTINE 14 MG/24 HOURS TOPICAL PATCH TD SCH (10:34)
[2020-12-11] MEDS: METHOCARBAMOL 500 MG TABLET PO PRN (15:20)
[2020-12-11] MEDS: THIAMINE HCL 100 MG TABLET (FP) PO SCH (22:06)
[2020-12-11] MEDS: MELATONIN 5 MG TABLETS PO SCH (22:06)
[2020-12-12] MEDS: METHOCARBAMOL 500 MG TABLET PO PRN ×2 (03:08→20:44)
[2020-12-12] MEDS ORDERED: methaDONE HCL 40 MG DISPERSABLE TABLET ONE (04:44)
[2020-12-12] MEDS ORDERED: methaDONE HCL 10 MG TABLET ONE (04:44)
[2020-12-12] MEDS: hydrOXYzine PAMOATE 25 MG CAPSULE (FP) PO PRN ×4 (06:23→20:44)
[2020-12-12] MEDS: BUDESONIDE/FORMETEROL FUMARATE 160/4.5 mcg INHALER IH SCH ×2 (10:13→22:14)
[2020-12-12] MEDS: PRENATAL VITAMINS W/ FOLIC ACID TABLET (FP) PO SCH (10:13)
[2020-12-12] MEDS: LORATADINE 10 MG TABLET PO SCH (10:13)
[2020-12-12] MEDS: FOLIC ACID 1 MG TABLET (FP) PO SCH (10:13)
[2020-12-12] MEDS: BACITRACIN 0.9 GM PACKET TP SCH ×2 (10:13→22:14)
[2020-12-12] MEDS: amLODIPine BESYLATE 10 MG TABLET (FP) PO SCH (10:14)
[2020-12-12] MEDS: NICOTINE 14 MG/24 HOURS TOPICAL PATCH TD SCH (10:14)
[2020-12-12] MEDS: THIAMINE HCL 100 MG TABLET (FP) PO SCH (22:14)
[2020-12-12] MEDS: MELATONIN 5 MG TABLETS PO SCH (22:15)
[2020-12-13] MEDS ORDERED: methaDONE HCL 10 MG TABLET ONE (04:31)
[2020-12-13] MEDS ORDERED: methaDONE HCL 40 MG DISPERSABLE TABLET ONE (04:31)
[2020-12-13] MEDS: hydrOXYzine PAMOATE 25 MG CAPSULE (FP) PO PRN ×2 (05:53→10:55)
[2020-12-13] MEDS: BUDESONIDE/FORMETEROL FUMARATE 160/4.5 mcg INHALER IH SCH (10:53)
[2020-12-13] MEDS: NICOTINE 14 MG/24 HOURS TOPICAL PATCH TD SCH (10:53)
[2020-12-13] MEDS: amLODIPine BESYLATE 10 MG TABLET (FP) PO SCH (10:54)
[2020-12-13] MEDS: LORATADINE 10 MG TABLET PO SCH (10:54)
[2020-12-13] MEDS: BACITRACIN 0.9 GM PACKET TP SCH (10:54)
[2020-12-13] MEDS: FOLIC ACID 1 MG TABLET (FP) PO SCH (10:54)
[2020-12-13] MEDS: PRENATAL VITAMINS W/ FOLIC ACID TABLET (FP) PO SCH (10:54)
[2020-12-13 17:18] VITALS: BP 104/67; PULSE 64; TEMP 98.2
== END 2020-12-13 18:17 | disposition other institution (70) | DRG 897 ==
LOC: YASAS 14:38 → Y3N 18:04
PROVIDERS: ADMIT Allergy & Immunology; ATTEND Allergy & Immunology
PROC: HZ2ZZZZ Detoxification Services for Substance Abuse Treatment (ICD-10-PCS; principal; 2020-12-07)
DX: F10.230 Alcohol dependence with withdrawal, uncomplicated (principal); F11.20 Opioid dependence, uncomplicated; F14.20 Cocaine dependence, uncomplicated; A53.0 Latent syphilis, unspecified as early or late; F17.210 Nicotine dependence, cigarettes, uncomplicated; E88.09 Other disorders of plasma-protein metabolism, not elsewhere classified; E78.00 Pure hypercholesterolemia, unspecified; E16.2 Hypoglycemia, unspecified; I10 Essential (primary) hypertension; J45.20 Mild intermittent asthma, uncomplicated; K21.9 Gastro-esophageal reflux disease without esophagitis; M54.32 Sciatica, left side; M17.11 Unilateral primary osteoarthritis, right knee; Z99.89 Dependence on other enabling machines and devices; Z91.013 Allergy to seafood
CPT/HCPCS: 36415; 80053; 85027; 86593; 86780; 93005; 93010; C9803; U0003; U0005

== ENCOUNTER 2020-12-13 18:19 | Inpatient (IN) | payer OTHER ==
[2020-12-13] MEDS ORDERED: MENTHOL/PHENOL 1 EACH UD MM PRN (18:40)
[2020-12-13] MEDS ORDERED: MAGNESIUM HYDROX 2400MG/30ML ORAL SUSPENSION 30 ML CUP PO PRN (18:40)
[2020-12-13] MEDS ORDERED: ACETAMINOPHEN 325 MG TABLET (FP) PO PRN (18:40)
[2020-12-13] MEDS ORDERED: MAG HYDROX/AL HYDROX/SIMETH 30 ML UNIT-DOSE CUP PO PRN (18:40)
[2020-12-13] MEDS ORDERED: P-EPHED 60MG/TRIPROLIDI 2.5MG TABLET PO PRN (18:40)
[2020-12-13] MEDS ORDERED: guaiFENesin 200 MG/10 ML 10 ML UNIT-DOSE CUPS PO PRN (18:40)
[2020-12-13] MEDS ORDERED: MAGNESIUM CITRATE 300 ML BOTTLE PO PRN (18:40)
[2020-12-13] MEDS ORDERED: LOPERAMIDE HCL 2 MG CAPSULE PO PRN (18:40)
[2020-12-13] MEDS ORDERED: ALBUTEROL SO4 HFA INHALER IH PRN (18:41)
[2020-12-13] MEDS ORDERED: hydrOXYzine PAMOATE 25 MG CAPSULE (FP) PO ONE (19:59)
[2020-12-13] MEDS: MELATONIN 5 MG TABLETS PO SCH (23:44)
[2020-12-13] MEDS: BUDESONIDE/FORMETEROL FUMARATE 160/4.5 mcg INHALER IH SCH (23:44)
[2020-12-13] MEDS: THIAMINE HCL 100 MG TABLET (FP) PO SCH (23:44)
[2020-12-14] MEDS ORDERED: CEPHALEXIN MONOHYDRATE 500 MG CAPSULE (UD) PO SCH (06:00)
[2020-12-14] MEDS ORDERED: methaDONE HCL 10 MG TABLET PO SCH (06:00)
[2020-12-14] MEDS ORDERED: methaDONE HCL 40 MG DISPERSABLE TABLET ONE (09:19)
[2020-12-14] MEDS ORDERED: methaDONE HCL 10 MG TABLET ONE (09:19)
[2020-12-14] MEDS: CEPHALEXIN MONOHYDRATE 500 MG CAPSULE (UD) PO SCH ×2 (09:28→21:56)
[2020-12-14] MEDS: PANTOPRAZOLE 20 MG TABLET PO SCH (09:29)
[2020-12-14] MEDS: PRENATAL VITAMINS W/ FOLIC ACID TABLET (FP) PO SCH (09:29)
[2020-12-14] MEDS: amLODIPine BESYLATE 10 MG TABLET (FP) PO SCH (09:29)
[2020-12-14] MEDS: BUDESONIDE/FORMETEROL FUMARATE 160/4.5 mcg INHALER IH SCH ×2 (09:29→21:57)
[2020-12-14] MEDS: NICOTINE 10 MG CARTRIDGE (INHALER) IH PRN ×2 (09:32→21:56)
[2020-12-14] MEDS ORDERED: PT OWN MED DRAWER 7, Y5N ONE (14:44)
[2020-12-14] MEDS: hydrOXYzine PAMOATE 25 MG CAPSULE (FP) PO PRN ×3 (14:45→21:58)
[2020-12-14] MEDS: MELATONIN 5 MG TABLETS PO SCH (21:56)
[2020-12-14] MEDS: THIAMINE HCL 100 MG TABLET (FP) PO SCH (21:56)
[2020-12-15] MEDS ORDERED: methaDONE HCL 40 MG DISPERSABLE TABLET ONE (02:29)
[2020-12-15] MEDS ORDERED: methaDONE HCL 10 MG TABLET ONE (02:29)
[2020-12-15] MEDS: hydrOXYzine PAMOATE 25 MG CAPSULE (FP) PO PRN ×4 (06:12→22:15)
[2020-12-15] MEDS: PRENATAL VITAMINS W/ FOLIC ACID TABLET (FP) PO SCH (09:56)
[2020-12-15] MEDS: amLODIPine BESYLATE 10 MG TABLET (FP) PO SCH (09:57)
[2020-12-15] MEDS: CEPHALEXIN MONOHYDRATE 500 MG CAPSULE (UD) PO SCH ×2 (09:57→22:18)
[2020-12-15] MEDS: PANTOPRAZOLE 20 MG TABLET PO SCH (09:57)
[2020-12-15] MEDS: BUDESONIDE/FORMETEROL FUMARATE 160/4.5 mcg INHALER IH SCH ×2 (09:58→22:15)
[2020-12-15] MEDS: IBUPROFEN 400 MG TABLET (FP) PO PRN (16:45)
[2020-12-15] MEDS: MELATONIN 5 MG TABLETS PO SCH (22:14)
[2020-12-15] MEDS: THIAMINE HCL 100 MG TABLET (FP) PO SCH (22:15)
[2020-12-15] MEDS: NICOTINE 10 MG CARTRIDGE (INHALER) IH PRN (22:16)
[2020-12-16] MEDS: hydrOXYzine PAMOATE 25 MG CAPSULE (FP) PO PRN ×3 (03:23→19:50)
[2020-12-16] MEDS ORDERED: methaDONE HCL 10 MG TABLET ONE (05:09)
[2020-12-16] MEDS ORDERED: methaDONE HCL 40 MG DISPERSABLE TABLET ONE (05:09)
[2020-12-16] MEDS: CEPHALEXIN MONOHYDRATE 500 MG CAPSULE (UD) PO SCH ×2 (10:26→21:54)
[2020-12-16] MEDS: BUDESONIDE/FORMETEROL FUMARATE 160/4.5 mcg INHALER IH SCH ×2 (10:27→21:56)
[2020-12-16] MEDS: PANTOPRAZOLE 20 MG TABLET PO SCH (10:27)
[2020-12-16] MEDS: amLODIPine BESYLATE 10 MG TABLET (FP) PO SCH (10:27)
[2020-12-16] MEDS: PRENATAL VITAMINS W/ FOLIC ACID TABLET (FP) PO SCH (10:27)
[2020-12-16] MEDS: IBUPROFEN 400 MG TABLET (FP) PO PRN (19:50)
[2020-12-16] MEDS: MELATONIN 5 MG TABLETS PO SCH (21:54)
[2020-12-16] MEDS: THIAMINE HCL 100 MG TABLET (FP) PO SCH (21:54)
[2020-12-16] MEDS: NICOTINE 10 MG CARTRIDGE (INHALER) IH PRN (21:55)
[2020-12-17] MEDS ORDERED: methaDONE HCL 10 MG TABLET ONE (04:02)
[2020-12-17] MEDS ORDERED: methaDONE HCL 40 MG DISPERSABLE TABLET ONE (04:02)
[2020-12-17] MEDS: hydrOXYzine PAMOATE 25 MG CAPSULE (FP) PO PRN ×2 (06:00→10:30)
[2020-12-17 06:53] VITALS: TEMP 97.5
[2020-12-17] MEDS: PRENATAL VITAMINS W/ FOLIC ACID TABLET (FP) PO SCH (09:56)
[2020-12-17] MEDS: CEPHALEXIN MONOHYDRATE 500 MG CAPSULE (UD) PO SCH (09:57)
[2020-12-17] MEDS: PANTOPRAZOLE 20 MG TABLET PO SCH (09:57)
[2020-12-17] MEDS: amLODIPine BESYLATE 10 MG TABLET (FP) PO SCH (09:57)
[2020-12-17] MEDS: BUDESONIDE/FORMETEROL FUMARATE 160/4.5 mcg INHALER IH SCH (09:58)
[2020-12-17 12:42] VITALS: BP 134/83; PULSE 62
== END 2020-12-17 11:15 | disposition home or self-care (01) | DRG 895 ==
LOC: YASAS 18:19 → Y5N 18:20
PROVIDERS: ADMIT Allergy & Immunology; ATTEND Allergy & Immunology
PROC: HZ42ZZZ Group Counseling for Substance Abuse Treatment, Cognitive-Behavioral (ICD-10-PCS; principal; 2020-12-13)
DX: F10.20 Alcohol dependence, uncomplicated (principal); F11.20 Opioid dependence, uncomplicated; F14.20 Cocaine dependence, uncomplicated; F13.20 Sedative, hypnotic or anxiolytic dependence, uncomplicated; L03.115 Cellulitis of right lower limb; L03.116 Cellulitis of left lower limb; L97.909 Non-pressure chronic ulcer of unspecified part of unspecified lower leg with unspecified severity; F17.210 Nicotine dependence, cigarettes, uncomplicated; I10 Essential (primary) hypertension; J45.909 Unspecified asthma, uncomplicated; K21.9 Gastro-esophageal reflux disease without esophagitis; M54.32 Sciatica, left side; M17.11 Unilateral primary osteoarthritis, right knee; R60.0 Localized edema; Z99.89 Dependence on other enabling machines and devices; Z91.013 Allergy to seafood

== ENCOUNTER 2020-12-13 20:22 | Emergency (ER) | payer OTHER ==
[2020-12-13 20:52] VITALS: BMI 26.0
[2020-12-13] MEDS ORDERED: ACETAMINOPHEN 1000 MG/100 ML BAG IVPB ONE (22:08)
[2020-12-13] MEDS ORDERED: ACETAMINOPHEN INJECTION 100 ML IVPB ONE (22:18)
[2020-12-13 22:28] LABS: BASO % 0.7 % (0-2.0); EOS % 2.7 % (0-4.5); HEMATOCRIT 32.5 % (32.4-45.2); HEMOGLOBIN 11.3 GM/dL (10.7-15.3); LYMPH % 40.8 % (8-40); MCH 28.4 pg (25.7-33.7); MCHC 34.7 g/dl (32.0-36.0); MEAN PLT VOLUME 8.4 fl (7.5-11.1); MONO % 12.6 % (3.8-10.2); NEUT % 43.2 % (42.8-82.8); PLATELET COUNT 297 10^3/uL (134-434); RBC 3.97 M/mm3 (3.60-5.2); RDW 15.4 % (11.6-15.6)
[2020-12-13 22:54] LABS: ALBUMIN 2.9 g/dl (3.4-5.0); BLOOD UREA NITROGEN 20.7 mg/dL (7-18); CALCIUM 9.2 mg/dL (8.5-10.1)
[2020-12-13 22:57] LABS: CREATININE 0.7 mg/dL (0.55-1.3)
[2020-12-13 22:59] LABS: BILIRUBIN,TOTAL 0.2 mg/dL (0.2-1); TOT PROT 8.4 g/dl (6.4-8.2)
[2020-12-14] MEDS ORDERED: CEPHALEXIN MONOHYDRATE 500 MG CAPSULE (UD) PO ONE (00:01)
[2020-12-14] MEDS ORDERED: CEPHALEXIN MONOHYDRATE 500 MG CAPSULE (UD) ONE (01:24)
[2020-12-14 06:30] VITALS: BP 120/68; PULSE 51; TEMP 98.7
[2020-12-14] MEDS ORDERED: KETOROLAC TROMETHAMINE 30 MG/1 ML VIAL IM ONE (07:52)
[2020-12-14] MEDS ORDERED: KETOROLAC TROMETHAMINE 30 MG/1 ML VIAL ONE (07:53)
== END 2020-12-14 08:10 | disposition home or self-care (01) ==
LOC: JER 20:22
PROC: 3E033NZ Introduction of Analgesics, Hypnotics, Sedatives into Peripheral Vein, Percutaneous Approach (ICD-10-PCS; principal; 2020-12-13)
DX: R60.9 Edema, unspecified (principal); L03.116 Cellulitis of left lower limb
CPT/HCPCS: 36415; 80053; 85025; 93970-TC; 96374; 99284-25; J0131

== ENCOUNTER 2021-01-07 16:42 | Inpatient (IN) | payer OTHER ==
[2021-01-07 18:37] VITALS: BMI 26.5
[2021-01-07] MEDS ORDERED: NICOTINE POLACRILEX 2 MG GUM BC PRN (21:10)
[2021-01-07] MEDS ORDERED: ACETAMINOPHEN 325 MG TABLET (FP) PO PRN (21:10)
[2021-01-07] MEDS ORDERED: MAGNESIUM CITRATE 300 ML BOTTLE PO PRN (21:10)
[2021-01-07] MEDS ORDERED: MAGNESIUM HYDROX 2400MG/30ML ORAL SUSPENSION 30 ML CUP PO PRN (21:10)
[2021-01-07] MEDS ORDERED: LOPERAMIDE HCL 2 MG CAPSULE PO PRN (21:10)
[2021-01-07] MEDS ORDERED: MAG HYDROX/AL HYDROX/SIMETH 30 ML UNIT-DOSE CUP PO PRN (21:10)
[2021-01-07] MEDS ORDERED: P-EPHED 60MG/TRIPROLIDI 2.5MG TABLET PO PRN (21:10)
[2021-01-07] MEDS ORDERED: guaiFENesin 200 MG/10 ML 10 ML UNIT-DOSE CUPS PO PRN (21:10)
[2021-01-07] MEDS ORDERED: ALBUTEROL SO4 HFA INHALER IH PRN (21:12)
[2021-01-07] MEDS ORDERED: AMMONIUM LACTATE 12% LOTION 225 GM BOTTLE TP PRN (21:12)
[2021-01-08] MEDS: BUDESONIDE/FORMETEROL FUMARATE 160/4.5 mcg INHALER IH SCH ×3 (02:13→22:01)
[2021-01-08] MEDS: MELATONIN 5 MG TABLETS PO SCH ×2 (02:13→22:00)
[2021-01-08] MEDS: THIAMINE HCL 100 MG TABLET (FP) PO SCH ×2 (02:14→22:00)
[2021-01-08] MEDS ORDERED: methaDONE HCL 40 MG DISPERSABLE TABLET PO SCH (09:45)
[2021-01-08] MEDS: PRENATAL VITAMINS W/ FOLIC ACID TABLET (FP) PO SCH (10:41)
[2021-01-08] MEDS ORDERED: methaDONE HCL 10 MG TABLET ONE (10:42)
[2021-01-08] MEDS: PANTOPRAZOLE 20 MG TABLET PO SCH (10:43)
[2021-01-08] MEDS: amLODIPine BESYLATE 10 MG TABLET (FP) PO SCH (10:43)
[2021-01-08] MEDS ORDERED: methaDONE HCL 40 MG DISPERSABLE TABLET ONE (10:43)
[2021-01-08] MEDS: hydrOXYzine PAMOATE 25 MG CAPSULE (FP) PO PRN ×3 (10:45→22:01)
[2021-01-08] MEDS: NICOTINE 10 MG CARTRIDGE (INHALER) IH PRN ×2 (10:49→22:01)
[2021-01-08 15:17] LABS: URINE APPEARANCE CLEAR; URINE BILIRUBIN NEGATIVE (NEGATIVE); URINE COLOR YELLOW; URINE GLUCOSE (UA) NEGATIVE (NEGATIVE); URINE KETONE NEGATIVE (NEGATIVE); URINE LEUK ESTERASE NEGATIVE (NEGATIVE); URINE NITRITE NEGATIVE (NEGATIVE); URINE PROTEIN NEGATIVE (NEGATIVE)
[2021-01-09] MEDS ORDERED: methaDONE HCL 40 MG DISPERSABLE TABLET ONE (03:51)
[2021-01-09] MEDS ORDERED: methaDONE HCL 10 MG TABLET ONE (03:51)
[2021-01-09] MEDS: hydrOXYzine PAMOATE 25 MG CAPSULE (FP) PO PRN ×3 (06:34→17:11)
[2021-01-09] MEDS: NICOTINE 10 MG CARTRIDGE (INHALER) IH PRN (06:35)
[2021-01-09] MEDS: amLODIPine BESYLATE 10 MG TABLET (FP) PO SCH (10:38)
[2021-01-09] MEDS: PANTOPRAZOLE 20 MG TABLET PO SCH (10:38)
[2021-01-09] MEDS: PRENATAL VITAMINS W/ FOLIC ACID TABLET (FP) PO SCH (10:38)
[2021-01-09] MEDS: BUDESONIDE/FORMETEROL FUMARATE 160/4.5 mcg INHALER IH SCH ×2 (10:39→21:05)
[2021-01-09] MEDS: IBUPROFEN 400 MG TABLET (FP) PO PRN (10:41)
[2021-01-09] MEDS: MELATONIN 5 MG TABLETS PO SCH (21:05)
[2021-01-09] MEDS: THIAMINE HCL 100 MG TABLET (FP) PO SCH (21:05)
[2021-01-10] MEDS ORDERED: methaDONE HCL 40 MG DISPERSABLE TABLET ONE (03:19)
[2021-01-10] MEDS ORDERED: methaDONE HCL 10 MG TABLET ONE (03:19)
[2021-01-10] MEDS: IBUPROFEN 400 MG TABLET (FP) PO PRN (06:20)
[2021-01-10] MEDS: BUDESONIDE/FORMETEROL FUMARATE 160/4.5 mcg INHALER IH SCH ×2 (10:48→23:07)
[2021-01-10] MEDS: amLODIPine BESYLATE 10 MG TABLET (FP) PO SCH (10:48)
[2021-01-10] MEDS: PRENATAL VITAMINS W/ FOLIC ACID TABLET (FP) PO SCH (10:48)
[2021-01-10] MEDS: PANTOPRAZOLE 20 MG TABLET PO SCH (10:48)
[2021-01-10] MEDS: NICOTINE 10 MG CARTRIDGE (INHALER) IH PRN ×2 (10:49→21:28)
[2021-01-10] MEDS: hydrOXYzine PAMOATE 25 MG CAPSULE (FP) PO PRN ×3 (10:49→21:28)
[2021-01-10] MEDS: THIAMINE HCL 100 MG TABLET (FP) PO SCH (21:28)
[2021-01-10] MEDS: MELATONIN 5 MG TABLETS PO SCH (21:28)
[2021-01-11] MEDS ORDERED: methaDONE HCL 40 MG DISPERSABLE TABLET ONE (02:46)
[2021-01-11] MEDS ORDERED: methaDONE HCL 10 MG TABLET ONE (02:46)
[2021-01-11] MEDS: hydrOXYzine PAMOATE 25 MG CAPSULE (FP) PO PRN ×4 (06:08→21:44)
[2021-01-11] MEDS ORDERED: PT OWN MED DRAWER 7, Y5N ONE (09:15)
[2021-01-11] MEDS: PRENATAL VITAMINS W/ FOLIC ACID TABLET (FP) PO SCH (10:33)
[2021-01-11] MEDS: PANTOPRAZOLE 20 MG TABLET PO SCH (10:34)
[2021-01-11] MEDS: amLODIPine BESYLATE 10 MG TABLET (FP) PO SCH (10:34)
[2021-01-11] MEDS: BUDESONIDE/FORMETEROL FUMARATE 160/4.5 mcg INHALER IH SCH ×2 (10:34→21:43)
[2021-01-11] MEDS: NICOTINE 10 MG CARTRIDGE (INHALER) IH PRN (21:43)
[2021-01-11] MEDS: MELATONIN 5 MG TABLETS PO SCH (21:43)
[2021-01-11] MEDS: THIAMINE HCL 100 MG TABLET (FP) PO SCH (21:43)
[2021-01-12] MEDS ORDERED: methaDONE HCL 10 MG TABLET ONE (03:55)
[2021-01-12] MEDS ORDERED: methaDONE HCL 40 MG DISPERSABLE TABLET ONE (03:56)
[2021-01-12] MEDS: hydrOXYzine PAMOATE 25 MG CAPSULE (FP) PO PRN ×4 (06:14→21:55)
[2021-01-12] MEDS: PRENATAL VITAMINS W/ FOLIC ACID TABLET (FP) PO SCH (10:34)
[2021-01-12] MEDS: PANTOPRAZOLE 20 MG TABLET PO SCH (10:34)
[2021-01-12] MEDS: amLODIPine BESYLATE 10 MG TABLET (FP) PO SCH (10:34)
[2021-01-12] MEDS: BUDESONIDE/FORMETEROL FUMARATE 160/4.5 mcg INHALER IH SCH ×2 (10:34→21:54)
[2021-01-12] MEDS: IBUPROFEN 400 MG TABLET (FP) PO PRN (15:01)
[2021-01-12] MEDS: NICOTINE 10 MG CARTRIDGE (INHALER) IH PRN (15:02)
[2021-01-12] MEDS: MELATONIN 5 MG TABLETS PO SCH (21:54)
[2021-01-12] MEDS: THIAMINE HCL 100 MG TABLET (FP) PO SCH (21:54)
[2021-01-13] MEDS ORDERED: methaDONE HCL 10 MG TABLET ONE (03:13)
[2021-01-13] MEDS ORDERED: methaDONE HCL 40 MG DISPERSABLE TABLET ONE (03:13)
[2021-01-13] MEDS: NICOTINE 10 MG CARTRIDGE (INHALER) IH PRN ×2 (06:12→21:41)
[2021-01-13] MEDS: hydrOXYzine PAMOATE 25 MG CAPSULE (FP) PO PRN ×4 (06:12→21:41)
[2021-01-13] MEDS: PRENATAL VITAMINS W/ FOLIC ACID TABLET (FP) PO SCH (10:33)
[2021-01-13] MEDS: BUDESONIDE/FORMETEROL FUMARATE 160/4.5 mcg INHALER IH SCH ×2 (10:33→21:40)
[2021-01-13] MEDS: amLODIPine BESYLATE 10 MG TABLET (FP) PO SCH (10:34)
[2021-01-13] MEDS: PANTOPRAZOLE 20 MG TABLET PO SCH (10:34)
[2021-01-13] MEDS: IBUPROFEN 400 MG TABLET (FP) PO PRN ×2 (10:35→17:14)
[2021-01-13] MEDS: THIAMINE HCL 100 MG TABLET (FP) PO SCH (21:41)
[2021-01-13] MEDS: MELATONIN 5 MG TABLETS PO SCH (21:42)
[2021-01-14] MEDS ORDERED: methaDONE HCL 10 MG TABLET ONE (03:32)
[2021-01-14] MEDS ORDERED: methaDONE HCL 40 MG DISPERSABLE TABLET ONE (03:32)
[2021-01-14] MEDS: hydrOXYzine PAMOATE 25 MG CAPSULE (FP) PO PRN ×4 (06:04→21:21)
[2021-01-14] MEDS: BUDESONIDE/FORMETEROL FUMARATE 160/4.5 mcg INHALER IH SCH ×2 (10:02→21:19)
[2021-01-14] MEDS: amLODIPine BESYLATE 10 MG TABLET (FP) PO SCH (10:03)
[2021-01-14] MEDS: PANTOPRAZOLE 20 MG TABLET PO SCH (10:03)
[2021-01-14] MEDS: PRENATAL VITAMINS W/ FOLIC ACID TABLET (FP) PO SCH (10:03)
[2021-01-14] MEDS: MELATONIN 5 MG TABLETS PO SCH (21:19)
[2021-01-14] MEDS: NICOTINE 10 MG CARTRIDGE (INHALER) IH PRN (21:20)
[2021-01-14] MEDS: THIAMINE HCL 100 MG TABLET (FP) PO SCH (21:20)
[2021-01-15] MEDS ORDERED: methaDONE HCL 40 MG DISPERSABLE TABLET ONE (05:59)
[2021-01-15] MEDS ORDERED: methaDONE HCL 10 MG TABLET ONE (05:59)
[2021-01-15] MEDS: hydrOXYzine PAMOATE 25 MG CAPSULE (FP) PO PRN ×4 (06:04→21:46)
[2021-01-15] MEDS: BUDESONIDE/FORMETEROL FUMARATE 160/4.5 mcg INHALER IH SCH ×2 (10:30→21:46)
[2021-01-15] MEDS: PANTOPRAZOLE 20 MG TABLET PO SCH (10:30)
[2021-01-15] MEDS: PRENATAL VITAMINS W/ FOLIC ACID TABLET (FP) PO SCH (10:30)
[2021-01-15] MEDS: amLODIPine BESYLATE 10 MG TABLET (FP) PO SCH (10:30)
[2021-01-15] MEDS: NICOTINE 10 MG CARTRIDGE (INHALER) IH PRN (10:31)
[2021-01-15] MEDS: MELATONIN 5 MG TABLETS PO SCH (21:46)
[2021-01-15] MEDS: THIAMINE HCL 100 MG TABLET (FP) PO SCH (21:46)
[2021-01-16] MEDS ORDERED: methaDONE HCL 10 MG TABLET ONE (05:41)
[2021-01-16] MEDS ORDERED: methaDONE HCL 40 MG DISPERSABLE TABLET ONE (05:42)
[2021-01-16] MEDS: NICOTINE 10 MG CARTRIDGE (INHALER) IH PRN ×2 (05:59→21:45)
[2021-01-16] MEDS: hydrOXYzine PAMOATE 25 MG CAPSULE (FP) PO PRN ×4 (05:59→21:45)
[2021-01-16] MEDS: BUDESONIDE/FORMETEROL FUMARATE 160/4.5 mcg INHALER IH SCH ×2 (10:29→21:45)
[2021-01-16] MEDS: PANTOPRAZOLE 20 MG TABLET PO SCH (10:30)
[2021-01-16] MEDS: amLODIPine BESYLATE 10 MG TABLET (FP) PO SCH (10:30)
[2021-01-16] MEDS: PRENATAL VITAMINS W/ FOLIC ACID TABLET (FP) PO SCH (10:30)
[2021-01-16] MEDS: IBUPROFEN 400 MG TABLET (FP) PO PRN (10:32)
[2021-01-16] MEDS: MELATONIN 5 MG TABLETS PO SCH (21:45)
[2021-01-16] MEDS: THIAMINE HCL 100 MG TABLET (FP) PO SCH (21:45)
[2021-01-17] MEDS ORDERED: methaDONE HCL 40 MG DISPERSABLE TABLET ONE (06:06)
[2021-01-17] MEDS ORDERED: methaDONE HCL 10 MG TABLET ONE (06:06)
[2021-01-17] MEDS: hydrOXYzine PAMOATE 25 MG CAPSULE (FP) PO PRN ×3 (06:19→18:47)
[2021-01-17] MEDS: PRENATAL VITAMINS W/ FOLIC ACID TABLET (FP) PO SCH (10:43)
[2021-01-17] MEDS: amLODIPine BESYLATE 10 MG TABLET (FP) PO SCH (10:43)
[2021-01-17] MEDS: PANTOPRAZOLE 20 MG TABLET PO SCH (10:43)
[2021-01-17] MEDS: BUDESONIDE/FORMETEROL FUMARATE 160/4.5 mcg INHALER IH SCH ×2 (10:44→21:30)
[2021-01-17] MEDS: MELATONIN 5 MG TABLETS PO SCH (21:30)
[2021-01-17] MEDS: THIAMINE HCL 100 MG TABLET (FP) PO SCH (21:30)
[2021-01-17] MEDS: NICOTINE 10 MG CARTRIDGE (INHALER) IH PRN (21:31)
[2021-01-18] MEDS ORDERED: methaDONE HCL 10 MG TABLET ONE (03:30)
[2021-01-18] MEDS ORDERED: methaDONE HCL 40 MG DISPERSABLE TABLET ONE (03:31)
[2021-01-18] MEDS: hydrOXYzine PAMOATE 25 MG CAPSULE (FP) PO PRN ×4 (05:56→21:10)
[2021-01-18] MEDS: PRENATAL VITAMINS W/ FOLIC ACID TABLET (FP) PO SCH (10:18)
[2021-01-18] MEDS: BUDESONIDE/FORMETEROL FUMARATE 160/4.5 mcg INHALER IH SCH ×2 (10:19→21:11)
[2021-01-18] MEDS: PANTOPRAZOLE 20 MG TABLET PO SCH (10:19)
[2021-01-18] MEDS: amLODIPine BESYLATE 10 MG TABLET (FP) PO SCH (10:19)
[2021-01-18] MEDS: THIAMINE HCL 100 MG TABLET (FP) PO SCH (21:10)
[2021-01-18] MEDS: MELATONIN 5 MG TABLETS PO SCH (21:10)
[2021-01-18] MEDS: NICOTINE 10 MG CARTRIDGE (INHALER) IH PRN (21:10)
[2021-01-19] MEDS ORDERED: methaDONE HCL 40 MG DISPERSABLE TABLET ONE (03:22)
[2021-01-19] MEDS ORDERED: methaDONE HCL 10 MG TABLET ONE (03:22)
[2021-01-19] MEDS: hydrOXYzine PAMOATE 25 MG CAPSULE (FP) PO PRN ×4 (06:07→21:47)
[2021-01-19] MEDS: PANTOPRAZOLE 20 MG TABLET PO SCH (10:32)
[2021-01-19] MEDS: PRENATAL VITAMINS W/ FOLIC ACID TABLET (FP) PO SCH (10:32)
[2021-01-19] MEDS: amLODIPine BESYLATE 10 MG TABLET (FP) PO SCH (10:32)
[2021-01-19] MEDS: BUDESONIDE/FORMETEROL FUMARATE 160/4.5 mcg INHALER IH SCH ×2 (10:32→21:47)
[2021-01-19] MEDS: THIAMINE HCL 100 MG TABLET (FP) PO SCH (21:47)
[2021-01-19] MEDS: MELATONIN 5 MG TABLETS PO SCH (21:47)
[2021-01-20] MEDS ORDERED: methaDONE HCL 40 MG DISPERSABLE TABLET ONE (03:09)
[2021-01-20] MEDS ORDERED: methaDONE HCL 10 MG TABLET ONE (03:09)
[2021-01-20] MEDS: hydrOXYzine PAMOATE 25 MG CAPSULE (FP) PO PRN ×3 (06:11→21:23)
[2021-01-20] MEDS: BUDESONIDE/FORMETEROL FUMARATE 160/4.5 mcg INHALER IH SCH ×2 (10:18→21:24)
[2021-01-20] MEDS: amLODIPine BESYLATE 10 MG TABLET (FP) PO SCH (10:18)
[2021-01-20] MEDS: PANTOPRAZOLE 20 MG TABLET PO SCH (10:18)
[2021-01-20] MEDS: PRENATAL VITAMINS W/ FOLIC ACID TABLET (FP) PO SCH (10:18)
[2021-01-20] MEDS: THIAMINE HCL 100 MG TABLET (FP) PO SCH (21:23)
[2021-01-20] MEDS: NICOTINE 10 MG CARTRIDGE (INHALER) IH PRN (21:23)
[2021-01-20] MEDS: MELATONIN 5 MG TABLETS PO SCH (21:23)
[2021-01-21] MEDS ORDERED: methaDONE HCL 40 MG DISPERSABLE TABLET ONE (06:03)
[2021-01-21] MEDS ORDERED: methaDONE HCL 10 MG TABLET ONE (06:03)
[2021-01-21] MEDS: hydrOXYzine PAMOATE 25 MG CAPSULE (FP) PO PRN ×2 (06:05→09:27)
[2021-01-21 07:31] VITALS: BP 131/84; PULSE 64; TEMP 97.3
[2021-01-21] MEDS: BUDESONIDE/FORMETEROL FUMARATE 160/4.5 mcg INHALER IH SCH (09:26)
[2021-01-21] MEDS: PRENATAL VITAMINS W/ FOLIC ACID TABLET (FP) PO SCH (09:26)
[2021-01-21] MEDS: amLODIPine BESYLATE 10 MG TABLET (FP) PO SCH (09:27)
[2021-01-21] MEDS: PANTOPRAZOLE 20 MG TABLET PO SCH (09:27)
== END 2021-01-21 09:45 | disposition home or self-care (01) | DRG 895 ==
LOC: YASAS 16:42 → Y5N 23:55
PROVIDERS: ADMIT Allergy & Immunology; ATTEND Allergy & Immunology
PROC: HZ42ZZZ Group Counseling for Substance Abuse Treatment, Cognitive-Behavioral (ICD-10-PCS; principal; 2021-01-07)
DX: F10.20 Alcohol dependence, uncomplicated (principal); F14.20 Cocaine dependence, uncomplicated; F11.20 Opioid dependence, uncomplicated; F17.210 Nicotine dependence, cigarettes, uncomplicated; F41.9 Anxiety disorder, unspecified; I10 Essential (primary) hypertension; K21.9 Gastro-esophageal reflux disease without esophagitis; M17.11 Unilateral primary osteoarthritis, right knee; M54.32 Sciatica, left side; R60.0 Localized edema; Z86.19 Personal history of other infectious and parasitic diseases; Z99.89 Dependence on other enabling machines and devices
CPT/HCPCS: 81003; C9803; U0003; U0005

== ENCOUNTER 2021-06-13 12:02 | Inpatient (IN) | payer OTHER ==
[2021-06-13] MEDS ORDERED: ACETAMINOPHEN 325 MG TABLET (FP) PO PRN ×2 (12:41)
[2021-06-13] MEDS ORDERED: MAGNESIUM CITRATE 300 ML BOTTLE PO PRN (12:41)
[2021-06-13] MEDS ORDERED: MAGNESIUM HYDROX 2400MG/30ML ORAL SUSPENSION 30 ML CUP PO PRN (12:41)
[2021-06-13] MEDS ORDERED: LOPERAMIDE HCL 2 MG CAPSULE PO PRN (12:41)
[2021-06-13] MEDS ORDERED: NICOTINE 10 MG CARTRIDGE (INHALER) IH PRN (12:41)
[2021-06-13] MEDS ORDERED: chlordiazePOXIDE HCL 25 MG CAPSULE PO PRN (12:41)
[2021-06-13] MEDS ORDERED: MENTHOL/PHENOL 1 EACH UD MM PRN (12:41)
[2021-06-13] MEDS ORDERED: BISMUTH SUBSALICYLATE 262 MG/15 ML BTL PO PRN (12:41)
[2021-06-13] MEDS ORDERED: MAG HYDROX/AL HYDROX/SIMETH 30 ML UNIT-DOSE CUP PO PRN (12:41)
[2021-06-13] MEDS ORDERED: IBUPROFEN 400 MG TABLET (FP) PO PRN (12:41)
[2021-06-13] MEDS ORDERED: ONDANSETRON *ODT* 4 MG TABLET SL PRN (12:41)
[2021-06-13 13:12] VITALS: BMI 28.8
[2021-06-13] MEDS ORDERED: ALBUTEROL SO4 HFA INHALER IH PRN (14:35)
[2021-06-13] MEDS: hydrOXYzine PAMOATE 25 MG CAPSULE (FP) PO SCH ×3 (15:12→22:34)
[2021-06-13] MEDS: NICOTINE 14 MG/24 HOURS TOPICAL PATCH TD SCH (15:12)
[2021-06-13] MEDS: CEPHALEXIN MONOHYDRATE 500 MG CAPSULE (UD) PO SCH ×3 (15:12→23:33)
[2021-06-13] MEDS: PRENATAL VITAMINS W/ FOLIC ACID TABLET (FP) PO SCH (15:12)
[2021-06-13] MEDS: chlordiazePOXIDE HCL 25 MG CAPSULE PO SCH ×3 (15:12→22:35)
[2021-06-13 17:27] LABS: HEMATOCRIT 31.4 % (32.4-45.2); HEMOGLOBIN 10.6 GM/dL (10.7-15.3); MCH 25.5 pg (25.7-33.7); MCHC 33.6 g/dl (32.0-36.0); MEAN CELL VOLUME 75.7 fl (80-96); MEAN PLT VOLUME 8.6 fl (7.5-11.1); PLATELET COUNT 334 10^3/uL (134-434); RBC 4.15 M/mm3 (3.60-5.2); WHITE BLOOD COUNT 4.6 K/mm3 (4.0-10.0)
[2021-06-13 17:32] LABS: CALCIUM 9.6 mg/dL (8.5-10.1)
[2021-06-13 17:33] LABS: ALBUMIN 3.3 g/dl (3.4-5.0); BLOOD UREA NITROGEN 7.1 mg/dL (7-18)
[2021-06-13 17:36] LABS: CREATININE 0.7 mg/dL (0.55-1.3)
[2021-06-13 17:38] LABS: BILIRUBIN,TOTAL 0.7 mg/dL (0.2-1); TOT PROT 7.4 g/dl (6.4-8.2)
[2021-06-13] MEDS: THIAMINE HCL 100 MG TABLET (FP) PO SCH (22:34)
[2021-06-13] MEDS: MELATONIN 5 MG TABLETS PO SCH (22:35)
[2021-06-13] MEDS: BUDESONIDE/FORMETEROL FUMARATE 160/4.5 mcg INHALER IH SCH (22:35)
[2021-06-14] MEDS: chlordiazePOXIDE HCL 25 MG CAPSULE PO SCH ×4 (05:40→22:09)
[2021-06-14] MEDS: hydrOXYzine PAMOATE 25 MG CAPSULE (FP) PO SCH ×5 (05:40→22:09)
[2021-06-14] MEDS: CEPHALEXIN MONOHYDRATE 500 MG CAPSULE (UD) PO SCH ×4 (05:40→23:21)
[2021-06-14] MEDS ORDERED: methaDONE HCL 10 MG TABLET PO SCH (08:30)
[2021-06-14] MEDS ORDERED: methaDONE HCL 40 MG DISPERSABLE TABLET ONE (09:53)
[2021-06-14] MEDS ORDERED: methaDONE HCL 10 MG TABLET ONE (09:53)
[2021-06-14] MEDS: PRENATAL VITAMINS W/ FOLIC ACID TABLET (FP) PO SCH (10:49)
[2021-06-14] MEDS: NICOTINE 14 MG/24 HOURS TOPICAL PATCH TD SCH (10:50)
[2021-06-14] MEDS: amLODIPine BESYLATE 10 MG TABLET (FP) PO SCH (10:51)
[2021-06-14] MEDS: methaDONE 80 MG, methaDONE 20 MG PO SCH (10:53)
[2021-06-14] MEDS: BUDESONIDE/FORMETEROL FUMARATE 160/4.5 mcg INHALER IH SCH ×2 (10:56→23:06)
[2021-06-14] MEDS: PANTOPRAZOLE 20 MG TABLET PO SCH (11:07)
[2021-06-14 14:42] LABS: HIV INTERPRETATION NEGATIVE (NEGATIVE)
[2021-06-14] MEDS: MELATONIN 5 MG TABLETS PO SCH (22:09)
[2021-06-14] MEDS: THIAMINE HCL 100 MG TABLET (FP) PO SCH (22:09)
[2021-06-15] MEDS ORDERED: methaDONE HCL 10 MG TABLET ONE (04:15)
[2021-06-15] MEDS ORDERED: methaDONE HCL 40 MG DISPERSABLE TABLET ONE (04:16)
[2021-06-15] MEDS: hydrOXYzine PAMOATE 25 MG CAPSULE (FP) PO SCH ×5 (05:59→22:42)
[2021-06-15] MEDS: CEPHALEXIN MONOHYDRATE 500 MG CAPSULE (UD) PO SCH ×4 (06:00→23:57)
[2021-06-15] MEDS: chlordiazePOXIDE HCL 25 MG CAPSULE PO SCH ×4 (06:15→22:28)
[2021-06-15] MEDS: methaDONE 80 MG, methaDONE 20 MG PO SCH (06:15)
[2021-06-15 10:09] LABS: SARS-CoV-2 NAA Not Detected (Not Detected)
[2021-06-15] MEDS: amLODIPine BESYLATE 10 MG TABLET (FP) PO SCH (10:43)
[2021-06-15] MEDS: PRENATAL VITAMINS W/ FOLIC ACID TABLET (FP) PO SCH (10:43)
[2021-06-15] MEDS: BUDESONIDE/FORMETEROL FUMARATE 160/4.5 mcg INHALER IH SCH ×2 (10:43→22:42)
[2021-06-15] MEDS: PANTOPRAZOLE 20 MG TABLET PO SCH (10:43)
[2021-06-15] MEDS: NICOTINE 14 MG/24 HOURS TOPICAL PATCH TD SCH (10:44)
[2021-06-15] MEDS: MELATONIN 5 MG TABLETS PO SCH (22:30)
[2021-06-15] MEDS: THIAMINE HCL 100 MG TABLET (FP) PO SCH (22:30)
[2021-06-15] MEDS: METHOCARBAMOL 500 MG TABLET PO PRN (22:30)
[2021-06-16] MEDS ORDERED: chlordiazePOXIDE HCL 10 MG CAPSULE PO PRN
[2021-06-16] MEDS ORDERED: methaDONE HCL 10 MG TABLET ONE (04:49)
[2021-06-16] MEDS ORDERED: methaDONE HCL 40 MG DISPERSABLE TABLET ONE (04:49)
[2021-06-16] MEDS: chlordiazePOXIDE HCL 10 MG CAPSULE PO SCH ×4 (06:37→23:03)
[2021-06-16] MEDS: hydrOXYzine PAMOATE 25 MG CAPSULE (FP) PO SCH ×5 (06:38→23:03)
[2021-06-16] MEDS: methaDONE 80 MG, methaDONE 20 MG PO SCH (06:38)
[2021-06-16] MEDS: CEPHALEXIN MONOHYDRATE 500 MG CAPSULE (UD) PO SCH ×3 (06:39→17:56)
[2021-06-16] MEDS: amLODIPine BESYLATE 10 MG TABLET (FP) PO SCH (11:06)
[2021-06-16] MEDS: PANTOPRAZOLE 20 MG TABLET PO SCH (11:07)
[2021-06-16] MEDS: PRENATAL VITAMINS W/ FOLIC ACID TABLET (FP) PO SCH (11:07)
[2021-06-16] MEDS: BUDESONIDE/FORMETEROL FUMARATE 160/4.5 mcg INHALER IH SCH ×2 (11:08→23:01)
[2021-06-16] MEDS: NICOTINE 14 MG/24 HOURS TOPICAL PATCH TD SCH (11:08)
[2021-06-16] MEDS: MELATONIN 5 MG TABLETS PO SCH (23:03)
[2021-06-16] MEDS: METHOCARBAMOL 500 MG TABLET PO PRN (23:03)
[2021-06-16] MEDS: THIAMINE HCL 100 MG TABLET (FP) PO SCH (23:03)
[2021-06-17] MEDS: CEPHALEXIN MONOHYDRATE 500 MG CAPSULE (UD) PO SCH ×4 (01:05→18:04)
[2021-06-17] MEDS ORDERED: chlordiazePOXIDE HCL 10 MG CAPSULE PO SCH (05:00)
[2021-06-17] MEDS ORDERED: methaDONE HCL 40 MG DISPERSABLE TABLET ONE (06:30)
[2021-06-17] MEDS ORDERED: methaDONE HCL 10 MG TABLET ONE (06:30)
[2021-06-17] MEDS: methaDONE 80 MG, methaDONE 20 MG PO SCH (06:32)
[2021-06-17] MEDS: hydrOXYzine PAMOATE 25 MG CAPSULE (FP) PO SCH ×2 (06:34→12:38)
[2021-06-17] MEDS: NICOTINE 14 MG/24 HOURS TOPICAL PATCH TD SCH (10:49)
[2021-06-17] MEDS: PRENATAL VITAMINS W/ FOLIC ACID TABLET (FP) PO SCH (10:49)
[2021-06-17] MEDS: BUDESONIDE/FORMETEROL FUMARATE 160/4.5 mcg INHALER IH SCH ×2 (10:49→22:08)
[2021-06-17] MEDS: PANTOPRAZOLE 20 MG TABLET PO SCH (10:49)
[2021-06-17] MEDS: amLODIPine BESYLATE 10 MG TABLET (FP) PO SCH (10:49)
[2021-06-17] MEDS ORDERED: hydrOXYzine PAMOATE 25 MG CAPSULE (FP) PO PRN (12:08)
[2021-06-17] MEDS: THIAMINE HCL 100 MG TABLET (FP) PO SCH (22:07)
[2021-06-17] MEDS: MELATONIN 5 MG TABLETS PO SCH (22:07)
[2021-06-18] MEDS ORDERED: chlordiazePOXIDE 5 MG CAPSULE PO ONE (05:00)
[2021-06-18] MEDS ORDERED: chlordiazePOXIDE HCL 10 MG CAPSULE PO ONE (05:00)
[2021-06-18] MEDS ORDERED: methaDONE HCL 10 MG TABLET ONE (06:29)
[2021-06-18] MEDS ORDERED: methaDONE HCL 40 MG DISPERSABLE TABLET ONE (06:29)
[2021-06-18] MEDS: methaDONE 80 MG, methaDONE 20 MG PO SCH (06:50)
[2021-06-18] MEDS: CEPHALEXIN MONOHYDRATE 500 MG CAPSULE (UD) PO SCH ×3 (07:07→12:56)
[2021-06-18] MEDS: amLODIPine BESYLATE 10 MG TABLET (FP) PO SCH (11:05)
[2021-06-18] MEDS: PRENATAL VITAMINS W/ FOLIC ACID TABLET (FP) PO SCH (11:06)
[2021-06-18] MEDS: PANTOPRAZOLE 20 MG TABLET PO SCH (11:06)
[2021-06-18] MEDS: NICOTINE 14 MG/24 HOURS TOPICAL PATCH TD SCH (11:06)
[2021-06-18] MEDS: BUDESONIDE/FORMETEROL FUMARATE 160/4.5 mcg INHALER IH SCH (11:06)
[2021-06-18 13:14] VITALS: BP 127/82; PULSE 87; TEMP 97.2
== END 2021-06-18 15:06 | disposition other institution (70) | DRG 897 ==
LOC: YASAS 12:02 → Y3N 13:42
PROVIDERS: ADMIT Allergy & Immunology; ATTEND Allergy & Immunology
PROC: HZ2ZZZZ Detoxification Services for Substance Abuse Treatment (ICD-10-PCS; principal; 2021-06-13)
DX: F10.230 Alcohol dependence with withdrawal, uncomplicated (principal); F11.20 Opioid dependence, uncomplicated; F14.20 Cocaine dependence, uncomplicated; L03.115 Cellulitis of right lower limb; L03.116 Cellulitis of left lower limb; F17.210 Nicotine dependence, cigarettes, uncomplicated; F19.24 Other psychoactive substance dependence with psychoactive substance-induced mood disorder; I10 Essential (primary) hypertension; J45.909 Unspecified asthma, uncomplicated; K21.9 Gastro-esophageal reflux disease without esophagitis; E78.5 Hyperlipidemia, unspecified; M17.11 Unilateral primary osteoarthritis, right knee; Z56.0 Unemployment, unspecified; Z59.00 Homelessness unspecified; Z86.19 Personal history of other infectious and parasitic diseases; Z91.410 Personal history of adult physical and sexual abuse; Z91.018 Allergy to other foods
CPT/HCPCS: 36415; 80053; 85027; 86593; 86780; 87389; C9803; U0003; U0005

== ENCOUNTER 2021-06-18 15:13 | Inpatient (IN) | payer OTHER ==
[2021-06-18] MEDS ORDERED: guaiFENesin 200 MG/10 ML 10 ML UNIT-DOSE CUPS PO PRN (17:17)
[2021-06-18] MEDS ORDERED: MAGNESIUM CITRATE 300 ML BOTTLE PO PRN (17:17)
[2021-06-18] MEDS ORDERED: P-EPHED 60MG/TRIPROLIDI 2.5MG TABLET PO PRN (17:17)
[2021-06-18] MEDS ORDERED: LOPERAMIDE HCL 2 MG CAPSULE PO PRN (17:17)
[2021-06-18] MEDS ORDERED: MENTHOL/PHENOL 1 EACH UD MM PRN (17:17)
[2021-06-18] MEDS ORDERED: MAGNESIUM HYDROX 2400MG/30ML ORAL SUSPENSION 30 ML CUP PO PRN (17:17)
[2021-06-18] MEDS ORDERED: ALBUTEROL SO4 HFA INHALER IH PRN (17:20)
[2021-06-18] MEDS: hydrOXYzine PAMOATE 25 MG CAPSULE (FP) PO SCH ×2 (19:38→21:14)
[2021-06-18] MEDS: BUDESONIDE/FORMETEROL FUMARATE 160/4.5 mcg INHALER IH SCH (21:13)
[2021-06-18] MEDS: THIAMINE HCL 100 MG TABLET (FP) PO SCH (21:13)
[2021-06-18] MEDS: MELATONIN 5 MG TABLETS PO SCH ×2 (21:14→22:46)
[2021-06-18] MEDS: IBUPROFEN 400 MG TABLET (FP) PO PRN (22:39)
[2021-06-19] MEDS ORDERED: methaDONE 80 MG, methaDONE 20 MG PO SCH (06:00)
[2021-06-19] MEDS ORDERED: methaDONE HCL 10 MG TABLET PO SCH (06:00)
[2021-06-19] MEDS: hydrOXYzine PAMOATE 25 MG CAPSULE (FP) PO SCH ×5 (07:06→21:11)
[2021-06-19] MEDS: NICOTINE 7 MG/24 HOURS TOPICAL PATCH TD SCH (09:36)
[2021-06-19] MEDS: PANTOPRAZOLE 20 MG TABLET PO SCH (09:37)
[2021-06-19] MEDS: PRENATAL VITAMINS W/ FOLIC ACID TABLET (FP) PO SCH (09:37)
[2021-06-19] MEDS: amLODIPine BESYLATE 10 MG TABLET (FP) PO SCH (09:37)
[2021-06-19] MEDS: BUDESONIDE/FORMETEROL FUMARATE 160/4.5 mcg INHALER IH SCH ×2 (09:38→22:09)
[2021-06-19] MEDS ORDERED: methaDONE HCL 40 MG DISPERSABLE TABLET PO SCH ×2 (10:00→10:46)
[2021-06-19] MEDS ORDERED: methaDONE HCL 10 MG TABLET ONE (12:38)
[2021-06-19] MEDS ORDERED: methaDONE HCL 40 MG DISPERSABLE TABLET ONE (12:38)
[2021-06-19] MEDS: methaDONE 80 MG, methaDONE 10 MG PO SCH (12:44)
[2021-06-19] MEDS: NICOTINE 10 MG CARTRIDGE (INHALER) IH PRN (18:02)
[2021-06-19] MEDS: MELATONIN 5 MG TABLETS PO SCH (21:11)
[2021-06-19] MEDS: THIAMINE HCL 100 MG TABLET (FP) PO SCH (21:11)
[2021-06-19] MEDS: ACETAMINOPHEN 325 MG TABLET (FP) PO PRN (21:11)
[2021-06-20] MEDS ORDERED: methaDONE HCL 10 MG TABLET ONE (03:53)
[2021-06-20] MEDS ORDERED: methaDONE HCL 40 MG DISPERSABLE TABLET ONE (03:53)
[2021-06-20] MEDS ORDERED: methaDONE 80 MG, methaDONE 10 MG PO SCH (06:00)
[2021-06-20] MEDS ORDERED: methaDONE 80 MG, methaDONE 20 MG PO SCH (06:00)
[2021-06-20] MEDS: IBUPROFEN 400 MG TABLET (FP) PO PRN (06:53)
[2021-06-20] MEDS: methaDONE 80 MG, methaDONE 10 MG PO SCH (06:53)
[2021-06-20] MEDS: hydrOXYzine PAMOATE 25 MG CAPSULE (FP) PO SCH ×2 (06:55→13:04)
[2021-06-20] MEDS: NICOTINE 10 MG CARTRIDGE (INHALER) IH PRN (06:57)
[2021-06-20] MEDS: PANTOPRAZOLE 20 MG TABLET PO SCH (13:02)
[2021-06-20] MEDS: PRENATAL VITAMINS W/ FOLIC ACID TABLET (FP) PO SCH (13:02)
[2021-06-20] MEDS: amLODIPine BESYLATE 10 MG TABLET (FP) PO SCH (13:02)
[2021-06-20] MEDS: NICOTINE 7 MG/24 HOURS TOPICAL PATCH TD SCH (16:19)
[2021-06-20] MEDS: BUDESONIDE/FORMETEROL FUMARATE 160/4.5 mcg INHALER IH SCH ×2 (16:19→21:11)
[2021-06-20] MEDS: MELATONIN 5 MG TABLETS PO SCH (21:09)
[2021-06-20] MEDS: THIAMINE HCL 100 MG TABLET (FP) PO SCH (21:10)
[2021-06-21] MEDS: PRENATAL VITAMINS W/ FOLIC ACID TABLET (FP) PO SCH (09:41)
[2021-06-21] MEDS: amLODIPine BESYLATE 10 MG TABLET (FP) PO SCH (09:42)
[2021-06-21] MEDS: PANTOPRAZOLE 20 MG TABLET PO SCH (09:42)
[2021-06-21] MEDS: BUDESONIDE/FORMETEROL FUMARATE 160/4.5 mcg INHALER IH SCH ×2 (09:42→21:15)
[2021-06-21] MEDS: NICOTINE 7 MG/24 HOURS TOPICAL PATCH TD SCH (09:42)
[2021-06-21] MEDS ORDERED: methaDONE HCL 10 MG TABLET PO ONE (10:28)
[2021-06-21] MEDS ORDERED: methaDONE HCL 10 MG TABLET ONE (10:41)
[2021-06-21] MEDS ORDERED: methaDONE HCL 40 MG DISPERSABLE TABLET ONE (10:42)
[2021-06-21] MEDS ORDERED: methaDONE 40 MG, methaDONE 30 MG PO ONE (10:45)
[2021-06-21] MEDS: THIAMINE HCL 100 MG TABLET (FP) PO SCH (21:14)
[2021-06-21] MEDS: MELATONIN 5 MG TABLETS PO SCH (21:15)
[2021-06-22] MEDS ORDERED: methaDONE HCL 10 MG TABLET ONE (06:20)
[2021-06-22] MEDS ORDERED: methaDONE HCL 40 MG DISPERSABLE TABLET ONE (06:20)
[2021-06-22] MEDS: methaDONE 80 MG, methaDONE 10 MG PO SCH (06:21)
[2021-06-22] MEDS: PRENATAL VITAMINS W/ FOLIC ACID TABLET (FP) PO SCH (09:24)
[2021-06-22] MEDS: NICOTINE 7 MG/24 HOURS TOPICAL PATCH TD SCH (09:24)
[2021-06-22] MEDS: PANTOPRAZOLE 20 MG TABLET PO SCH (09:25)
[2021-06-22] MEDS: BUDESONIDE/FORMETEROL FUMARATE 160/4.5 mcg INHALER IH SCH ×2 (09:25→21:02)
[2021-06-22] MEDS: amLODIPine BESYLATE 10 MG TABLET (FP) PO SCH (09:25)
[2021-06-22] MEDS ORDERED: NICOTINE POLACRILEX 4 MG GUM BUC ONE (11:59)
[2021-06-22] MEDS: MELATONIN 5 MG TABLETS PO SCH (21:03)
[2021-06-22] MEDS: THIAMINE HCL 100 MG TABLET (FP) PO SCH (21:03)
[2021-06-23] MEDS ORDERED: methaDONE HCL 10 MG TABLET ONE (02:45)
[2021-06-23] MEDS ORDERED: methaDONE HCL 40 MG DISPERSABLE TABLET ONE (02:45)
[2021-06-23] MEDS: methaDONE 80 MG, methaDONE 10 MG PO SCH (06:21)
[2021-06-23] MEDS: PRENATAL VITAMINS W/ FOLIC ACID TABLET (FP) PO SCH (10:21)
[2021-06-23] MEDS: BUDESONIDE/FORMETEROL FUMARATE 160/4.5 mcg INHALER IH SCH ×2 (10:21→21:09)
[2021-06-23] MEDS: PANTOPRAZOLE 20 MG TABLET PO SCH (10:22)
[2021-06-23] MEDS: amLODIPine BESYLATE 10 MG TABLET (FP) PO SCH (10:22)
[2021-06-23] MEDS: NICOTINE 7 MG/24 HOURS TOPICAL PATCH TD SCH (10:23)
[2021-06-23] MEDS: BACITRACIN 0.9 GM PACKET TP SCH ×2 (12:39→21:07)
[2021-06-23] MEDS: AMMONIUM LACTATE 12% LOTION 225 GM BOTTLE TP SCH (12:39)
[2021-06-23] MEDS: THIAMINE HCL 100 MG TABLET (FP) PO SCH (21:08)
[2021-06-23] MEDS: IBUPROFEN 400 MG TABLET (FP) PO PRN (21:08)
[2021-06-23] MEDS: MELATONIN 5 MG TABLETS PO SCH (21:09)
[2021-06-24] MEDS ORDERED: methaDONE HCL 10 MG TABLET ONE (02:40)
[2021-06-24] MEDS ORDERED: methaDONE HCL 40 MG DISPERSABLE TABLET ONE (02:40)
[2021-06-24] MEDS: methaDONE 80 MG, methaDONE 10 MG PO SCH (07:53)
[2021-06-24] MEDS: PRENATAL VITAMINS W/ FOLIC ACID TABLET (FP) PO SCH (09:46)
[2021-06-24] MEDS: amLODIPine BESYLATE 10 MG TABLET (FP) PO SCH (09:47)
[2021-06-24] MEDS: AMMONIUM LACTATE 12% LOTION 225 GM BOTTLE TP SCH (09:47)
[2021-06-24] MEDS: NICOTINE 7 MG/24 HOURS TOPICAL PATCH TD SCH (09:47)
[2021-06-24] MEDS: BUDESONIDE/FORMETEROL FUMARATE 160/4.5 mcg INHALER IH SCH ×2 (09:47→21:08)
[2021-06-24] MEDS: PANTOPRAZOLE 20 MG TABLET PO SCH (09:47)
[2021-06-24] MEDS: BACITRACIN 0.9 GM PACKET TP SCH ×2 (09:47→21:08)
[2021-06-24] MEDS: THIAMINE HCL 100 MG TABLET (FP) PO SCH (21:08)
[2021-06-24] MEDS: MELATONIN 5 MG TABLETS PO SCH (21:08)
[2021-06-25] MEDS ORDERED: methaDONE HCL 10 MG TABLET ONE (03:58)
[2021-06-25] MEDS ORDERED: methaDONE HCL 40 MG DISPERSABLE TABLET ONE (03:58)
[2021-06-25] MEDS: methaDONE 80 MG, methaDONE 10 MG PO SCH (06:24)
[2021-06-25] MEDS: amLODIPine BESYLATE 10 MG TABLET (FP) PO SCH (10:00)
[2021-06-25] MEDS: PRENATAL VITAMINS W/ FOLIC ACID TABLET (FP) PO SCH (10:00)
[2021-06-25] MEDS: PANTOPRAZOLE 20 MG TABLET PO SCH (10:00)
[2021-06-25] MEDS: BUDESONIDE/FORMETEROL FUMARATE 160/4.5 mcg INHALER IH SCH ×2 (10:00→21:19)
[2021-06-25] MEDS: NICOTINE 7 MG/24 HOURS TOPICAL PATCH TD SCH (10:01)
[2021-06-25] MEDS: BACITRACIN 0.9 GM PACKET TP SCH ×2 (10:01→21:18)
[2021-06-25] MEDS: AMMONIUM LACTATE 12% LOTION 225 GM BOTTLE TP SCH (10:01)
[2021-06-25 14:08] LABS: SARS-CoV-2 NAA Not Detected (Not Detected)
[2021-06-25] MEDS: MELATONIN 5 MG TABLETS PO SCH (21:18)
[2021-06-25] MEDS: THIAMINE HCL 100 MG TABLET (FP) PO SCH (21:18)
[2021-06-26] MEDS: MAG HYDROX/AL HYDROX/SIMETH 30 ML UNIT-DOSE CUP PO PRN ×2 (01:29→10:04)
[2021-06-26] MEDS ORDERED: methaDONE HCL 10 MG TABLET ONE (04:45)
[2021-06-26] MEDS ORDERED: methaDONE HCL 40 MG DISPERSABLE TABLET ONE (04:46)
[2021-06-26] MEDS: methaDONE 80 MG, methaDONE 10 MG PO SCH (06:14)
[2021-06-26] MEDS: NICOTINE 10 MG CARTRIDGE (INHALER) IH PRN ×2 (06:15→21:02)
[2021-06-26] MEDS: amLODIPine BESYLATE 10 MG TABLET (FP) PO SCH (10:01)
[2021-06-26] MEDS: BACITRACIN 0.9 GM PACKET TP SCH ×2 (10:01→21:00)
[2021-06-26] MEDS: PANTOPRAZOLE 20 MG TABLET PO SCH (10:01)
[2021-06-26] MEDS: PRENATAL VITAMINS W/ FOLIC ACID TABLET (FP) PO SCH (10:02)
[2021-06-26] MEDS: NICOTINE 7 MG/24 HOURS TOPICAL PATCH TD SCH (10:03)
[2021-06-26] MEDS: AMMONIUM LACTATE 12% LOTION 225 GM BOTTLE TP SCH (10:03)
[2021-06-26] MEDS: BUDESONIDE/FORMETEROL FUMARATE 160/4.5 mcg INHALER IH SCH ×2 (10:03→21:00)
[2021-06-26] MEDS: THIAMINE HCL 100 MG TABLET (FP) PO SCH (21:00)
[2021-06-26] MEDS: MELATONIN 5 MG TABLETS PO SCH (21:00)
[2021-06-27] MEDS ORDERED: methaDONE HCL 40 MG DISPERSABLE TABLET ONE (02:46)
[2021-06-27] MEDS ORDERED: methaDONE HCL 10 MG TABLET ONE (02:46)
[2021-06-27] MEDS: methaDONE 80 MG, methaDONE 10 MG PO SCH (06:06)
[2021-06-27] MEDS: amLODIPine BESYLATE 10 MG TABLET (FP) PO SCH (09:58)
[2021-06-27] MEDS: BUDESONIDE/FORMETEROL FUMARATE 160/4.5 mcg INHALER IH SCH ×2 (09:58→21:16)
[2021-06-27] MEDS: PRENATAL VITAMINS W/ FOLIC ACID TABLET (FP) PO SCH (09:58)
[2021-06-27] MEDS: BACITRACIN 0.9 GM PACKET TP SCH ×2 (09:58→21:15)
[2021-06-27] MEDS: NICOTINE 7 MG/24 HOURS TOPICAL PATCH TD SCH (09:58)
[2021-06-27] MEDS: PANTOPRAZOLE 20 MG TABLET PO SCH (09:58)
[2021-06-27] MEDS: AMMONIUM LACTATE 12% LOTION 225 GM BOTTLE TP SCH (09:59)
[2021-06-27] MEDS: NICOTINE 10 MG CARTRIDGE (INHALER) IH PRN (09:59)
[2021-06-27] MEDS: ACETAMINOPHEN 325 MG TABLET (FP) PO PRN (16:53)
[2021-06-27] MEDS: THIAMINE HCL 100 MG TABLET (FP) PO SCH (21:15)
[2021-06-27] MEDS: MELATONIN 5 MG TABLETS PO SCH (21:16)
[2021-06-28] MEDS ORDERED: methaDONE HCL 40 MG DISPERSABLE TABLET ONE (02:46)
[2021-06-28] MEDS ORDERED: methaDONE HCL 10 MG TABLET ONE (02:46)
[2021-06-28] MEDS: methaDONE 80 MG, methaDONE 10 MG PO SCH (06:05)
[2021-06-28] MEDS: PRENATAL VITAMINS W/ FOLIC ACID TABLET (FP) PO SCH (10:06)
[2021-06-28] MEDS: NICOTINE 7 MG/24 HOURS TOPICAL PATCH TD SCH (10:07)
[2021-06-28] MEDS: BUDESONIDE/FORMETEROL FUMARATE 160/4.5 mcg INHALER IH SCH ×2 (10:07→21:45)
[2021-06-28] MEDS: ACETAMINOPHEN 325 MG TABLET (FP) PO PRN (10:07)
[2021-06-28] MEDS: PANTOPRAZOLE 20 MG TABLET PO SCH (10:07)
[2021-06-28] MEDS: BACITRACIN 0.9 GM PACKET TP SCH ×2 (10:07→21:46)
[2021-06-28] MEDS: amLODIPine BESYLATE 10 MG TABLET (FP) PO SCH (10:07)
[2021-06-28] MEDS: AMMONIUM LACTATE 12% LOTION 225 GM BOTTLE TP SCH ×2 (10:09)
[2021-06-28] MEDS: MELATONIN 5 MG TABLETS PO SCH (21:46)
[2021-06-28] MEDS: THIAMINE HCL 100 MG TABLET (FP) PO SCH (21:46)
[2021-06-28] MEDS: NICOTINE 10 MG CARTRIDGE (INHALER) IH PRN (21:46)
[2021-06-29] MEDS: methaDONE 80 MG, methaDONE 10 MG PO SCH (06:19)
[2021-06-29] MEDS ORDERED: methaDONE HCL 10 MG TABLET ONE (06:19)
[2021-06-29] MEDS ORDERED: methaDONE HCL 40 MG DISPERSABLE TABLET ONE (06:19)
[2021-06-29] MEDS: PRENATAL VITAMINS W/ FOLIC ACID TABLET (FP) PO SCH (10:44)
[2021-06-29] MEDS: NICOTINE 7 MG/24 HOURS TOPICAL PATCH TD SCH (10:44)
[2021-06-29] MEDS: amLODIPine BESYLATE 10 MG TABLET (FP) PO SCH (10:45)
[2021-06-29] MEDS: BUDESONIDE/FORMETEROL FUMARATE 160/4.5 mcg INHALER IH SCH ×2 (10:45→21:30)
[2021-06-29] MEDS: BACITRACIN 0.9 GM PACKET TP SCH ×2 (10:45→21:28)
[2021-06-29] MEDS: AMMONIUM LACTATE 12% LOTION 225 GM BOTTLE TP SCH (10:45)
[2021-06-29] MEDS: PANTOPRAZOLE 20 MG TABLET PO SCH (10:45)
[2021-06-29] MEDS: MELATONIN 5 MG TABLETS PO SCH (21:29)
[2021-06-29] MEDS: THIAMINE HCL 100 MG TABLET (FP) PO SCH (21:29)
[2021-06-29] MEDS: NICOTINE 10 MG CARTRIDGE (INHALER) IH PRN (21:29)
[2021-06-30] MEDS ORDERED: methaDONE HCL 10 MG TABLET ONE (04:57)
[2021-06-30] MEDS ORDERED: methaDONE HCL 40 MG DISPERSABLE TABLET ONE (04:57)
[2021-06-30] MEDS: methaDONE 80 MG, methaDONE 10 MG PO SCH (05:59)
[2021-06-30] MEDS: BACITRACIN 0.9 GM PACKET TP SCH ×2 (10:06→21:21)
[2021-06-30] MEDS: BUDESONIDE/FORMETEROL FUMARATE 160/4.5 mcg INHALER IH SCH ×2 (10:06→21:21)
[2021-06-30] MEDS: AMMONIUM LACTATE 12% LOTION 225 GM BOTTLE TP SCH (10:06)
[2021-06-30] MEDS: PANTOPRAZOLE 20 MG TABLET PO SCH (10:07)
[2021-06-30] MEDS: PRENATAL VITAMINS W/ FOLIC ACID TABLET (FP) PO SCH (10:07)
[2021-06-30] MEDS: amLODIPine BESYLATE 10 MG TABLET (FP) PO SCH (10:07)
[2021-06-30] MEDS: NICOTINE 10 MG CARTRIDGE (INHALER) IH PRN (10:08)
[2021-06-30] MEDS: NICOTINE 7 MG/24 HOURS TOPICAL PATCH TD SCH (10:08)
[2021-06-30] MEDS: ACETAMINOPHEN 325 MG TABLET (FP) PO PRN (10:08)
[2021-06-30] MEDS: THIAMINE HCL 100 MG TABLET (FP) PO SCH (21:21)
[2021-06-30] MEDS: MELATONIN 5 MG TABLETS PO SCH (21:21)
[2021-07-01] MEDS ORDERED: methaDONE HCL 40 MG DISPERSABLE TABLET ONE (04:03)
[2021-07-01] MEDS ORDERED: methaDONE HCL 10 MG TABLET ONE (04:03)
[2021-07-01] MEDS: methaDONE 80 MG, methaDONE 10 MG PO SCH (06:02)
[2021-07-01] MEDS: BUDESONIDE/FORMETEROL FUMARATE 160/4.5 mcg INHALER IH SCH ×2 (10:22→22:00)
[2021-07-01] MEDS: amLODIPine BESYLATE 10 MG TABLET (FP) PO SCH (10:22)
[2021-07-01] MEDS: PRENATAL VITAMINS W/ FOLIC ACID TABLET (FP) PO SCH (10:22)
[2021-07-01] MEDS: BACITRACIN 0.9 GM PACKET TP SCH ×2 (10:22→22:00)
[2021-07-01] MEDS: PANTOPRAZOLE 20 MG TABLET PO SCH (10:22)
[2021-07-01] MEDS: NICOTINE 7 MG/24 HOURS TOPICAL PATCH TD SCH (10:23)
[2021-07-01] MEDS: ACETAMINOPHEN 325 MG TABLET (FP) PO PRN (10:25)
[2021-07-01] MEDS: AMMONIUM LACTATE 12% LOTION 225 GM BOTTLE TP SCH (10:26)
[2021-07-01] MEDS: MELATONIN 5 MG TABLETS PO SCH (22:00)
[2021-07-01] MEDS: THIAMINE HCL 100 MG TABLET (FP) PO SCH (22:00)
[2021-07-02] MEDS ORDERED: methaDONE HCL 10 MG TABLET ONE (03:00)
[2021-07-02] MEDS ORDERED: methaDONE HCL 40 MG DISPERSABLE TABLET ONE (03:01)
[2021-07-02] MEDS: methaDONE 80 MG, methaDONE 10 MG PO SCH (06:10)
[2021-07-02] MEDS: BUDESONIDE/FORMETEROL FUMARATE 160/4.5 mcg INHALER IH SCH ×2 (10:08→21:47)
[2021-07-02] MEDS: PANTOPRAZOLE 20 MG TABLET PO SCH (10:09)
[2021-07-02] MEDS: BACITRACIN 0.9 GM PACKET TP SCH ×2 (10:09→21:47)
[2021-07-02] MEDS: NICOTINE 7 MG/24 HOURS TOPICAL PATCH TD SCH (10:09)
[2021-07-02] MEDS: PRENATAL VITAMINS W/ FOLIC ACID TABLET (FP) PO SCH (10:09)
[2021-07-02] MEDS: AMMONIUM LACTATE 12% LOTION 225 GM BOTTLE TP SCH (10:10)
[2021-07-02] MEDS: amLODIPine BESYLATE 10 MG TABLET (FP) PO SCH (11:24)
[2021-07-02] MEDS: ACETAMINOPHEN 325 MG TABLET (FP) PO PRN (13:00)
[2021-07-02] MEDS: MELATONIN 5 MG TABLETS PO SCH (21:47)
[2021-07-02] MEDS: THIAMINE HCL 100 MG TABLET (FP) PO SCH (21:47)
[2021-07-02] MEDS: NICOTINE 10 MG CARTRIDGE (INHALER) IH PRN (21:48)
[2021-07-03] MEDS ORDERED: methaDONE HCL 40 MG DISPERSABLE TABLET ONE (04:46)
[2021-07-03] MEDS ORDERED: methaDONE HCL 10 MG TABLET ONE (04:46)
[2021-07-03] MEDS: methaDONE 80 MG, methaDONE 10 MG PO SCH (06:11)
[2021-07-03] MEDS: BUDESONIDE/FORMETEROL FUMARATE 160/4.5 mcg INHALER IH SCH ×2 (10:18→21:47)
[2021-07-03] MEDS: PRENATAL VITAMINS W/ FOLIC ACID TABLET (FP) PO SCH (10:18)
[2021-07-03] MEDS: BACITRACIN 0.9 GM PACKET TP SCH ×2 (10:19→21:47)
[2021-07-03] MEDS: AMMONIUM LACTATE 12% LOTION 225 GM BOTTLE TP SCH (10:19)
[2021-07-03] MEDS: NICOTINE 7 MG/24 HOURS TOPICAL PATCH TD SCH (10:19)
[2021-07-03] MEDS: PANTOPRAZOLE 20 MG TABLET PO SCH (10:19)
[2021-07-03] MEDS: amLODIPine BESYLATE 10 MG TABLET (FP) PO SCH (11:20)
[2021-07-03] MEDS: ACETAMINOPHEN 325 MG TABLET (FP) PO PRN (11:27)
[2021-07-03] MEDS: THIAMINE HCL 100 MG TABLET (FP) PO SCH (21:47)
[2021-07-03] MEDS: MELATONIN 5 MG TABLETS PO SCH (21:47)
[2021-07-03] MEDS: NICOTINE 10 MG CARTRIDGE (INHALER) IH PRN (21:48)
[2021-07-04] MEDS ORDERED: methaDONE HCL 10 MG TABLET ONE (03:08)
[2021-07-04] MEDS ORDERED: methaDONE HCL 40 MG DISPERSABLE TABLET ONE (03:08)
[2021-07-04] MEDS: methaDONE 80 MG, methaDONE 10 MG PO SCH (05:58)
[2021-07-04] MEDS: BUDESONIDE/FORMETEROL FUMARATE 160/4.5 mcg INHALER IH SCH ×2 (10:40→21:34)
[2021-07-04] MEDS: PANTOPRAZOLE 20 MG TABLET PO SCH (10:40)
[2021-07-04] MEDS: BACITRACIN 0.9 GM PACKET TP SCH ×2 (10:40→21:34)
[2021-07-04] MEDS: amLODIPine BESYLATE 10 MG TABLET (FP) PO SCH (10:40)
[2021-07-04] MEDS: PRENATAL VITAMINS W/ FOLIC ACID TABLET (FP) PO SCH (10:40)
[2021-07-04] MEDS: ACETAMINOPHEN 325 MG TABLET (FP) PO PRN (10:41)
[2021-07-04] MEDS: NICOTINE 7 MG/24 HOURS TOPICAL PATCH TD SCH (10:42)
[2021-07-04] MEDS: AMMONIUM LACTATE 12% LOTION 225 GM BOTTLE TP SCH (10:44)
[2021-07-04] MEDS: NICOTINE 10 MG CARTRIDGE (INHALER) IH PRN (21:34)
[2021-07-04] MEDS: MELATONIN 5 MG TABLETS PO SCH (21:34)
[2021-07-04] MEDS: THIAMINE HCL 100 MG TABLET (FP) PO SCH (21:34)
[2021-07-05] MEDS ORDERED: methaDONE HCL 10 MG TABLET ONE (03:13)
[2021-07-05] MEDS ORDERED: methaDONE HCL 40 MG DISPERSABLE TABLET ONE (03:13)
[2021-07-05] MEDS: methaDONE 80 MG, methaDONE 10 MG PO SCH (06:10)
[2021-07-05] MEDS: amLODIPine BESYLATE 10 MG TABLET (FP) PO SCH (09:09)
[2021-07-05] MEDS: PANTOPRAZOLE 20 MG TABLET PO SCH (09:09)
[2021-07-05] MEDS: PRENATAL VITAMINS W/ FOLIC ACID TABLET (FP) PO SCH (09:09)
[2021-07-05] MEDS: NICOTINE 7 MG/24 HOURS TOPICAL PATCH TD SCH (09:09)
[2021-07-05] MEDS: ACETAMINOPHEN 325 MG TABLET (FP) PO PRN ×2 (09:10→21:34)
[2021-07-05] MEDS: BUDESONIDE/FORMETEROL FUMARATE 160/4.5 mcg INHALER IH SCH ×2 (09:10→22:37)
[2021-07-05] MEDS: BACITRACIN 0.9 GM PACKET TP SCH ×2 (09:11→21:33)
[2021-07-05] MEDS: AMMONIUM LACTATE 12% LOTION 225 GM BOTTLE TP SCH (09:11)
[2021-07-05] MEDS: MELATONIN 5 MG TABLETS PO SCH (21:33)
[2021-07-05] MEDS: THIAMINE HCL 100 MG TABLET (FP) PO SCH (21:33)
[2021-07-06] MEDS ORDERED: methaDONE HCL 40 MG DISPERSABLE TABLET ONE (06:01)
[2021-07-06] MEDS ORDERED: methaDONE HCL 10 MG TABLET ONE (06:01)
[2021-07-06] MEDS: methaDONE 80 MG, methaDONE 10 MG PO SCH (06:02)
[2021-07-06] MEDS: BUDESONIDE/FORMETEROL FUMARATE 160/4.5 mcg INHALER IH SCH ×2 (10:59→21:21)
[2021-07-06] MEDS: PANTOPRAZOLE 20 MG TABLET PO SCH (10:59)
[2021-07-06] MEDS: ACETAMINOPHEN 325 MG TABLET (FP) PO PRN ×2 (10:59→21:22)
[2021-07-06] MEDS: BACITRACIN 0.9 GM PACKET TP SCH ×2 (10:59→21:21)
[2021-07-06] MEDS: NICOTINE 7 MG/24 HOURS TOPICAL PATCH TD SCH (10:59)
[2021-07-06] MEDS: PRENATAL VITAMINS W/ FOLIC ACID TABLET (FP) PO SCH (10:59)
[2021-07-06] MEDS: amLODIPine BESYLATE 10 MG TABLET (FP) PO SCH (10:59)
[2021-07-06] MEDS: AMMONIUM LACTATE 12% LOTION 225 GM BOTTLE TP SCH (11:02)
[2021-07-06] MEDS: THIAMINE HCL 100 MG TABLET (FP) PO SCH (21:21)
[2021-07-06] MEDS: MELATONIN 5 MG TABLETS PO SCH (21:21)
[2021-07-07] MEDS ORDERED: methaDONE HCL 40 MG DISPERSABLE TABLET ONE (02:45)
[2021-07-07] MEDS ORDERED: methaDONE HCL 10 MG TABLET ONE (02:45)
[2021-07-07] MEDS: methaDONE 80 MG, methaDONE 10 MG PO SCH (06:14)
[2021-07-07] MEDS: BUDESONIDE/FORMETEROL FUMARATE 160/4.5 mcg INHALER IH SCH ×2 (10:25→21:37)
[2021-07-07] MEDS: PRENATAL VITAMINS W/ FOLIC ACID TABLET (FP) PO SCH (10:26)
[2021-07-07] MEDS: PANTOPRAZOLE 20 MG TABLET PO SCH (10:26)
[2021-07-07] MEDS: NICOTINE 7 MG/24 HOURS TOPICAL PATCH TD SCH (10:26)
[2021-07-07] MEDS: BACITRACIN 0.9 GM PACKET TP SCH ×2 (10:26→21:36)
[2021-07-07] MEDS: amLODIPine BESYLATE 10 MG TABLET (FP) PO SCH (10:26)
[2021-07-07] MEDS: ACETAMINOPHEN 325 MG TABLET (FP) PO PRN ×2 (10:27→21:40)
[2021-07-07] MEDS: AMMONIUM LACTATE 12% LOTION 225 GM BOTTLE TP SCH (10:27)
[2021-07-07] MEDS: MELATONIN 5 MG TABLETS PO SCH (21:36)
[2021-07-07] MEDS: THIAMINE HCL 100 MG TABLET (FP) PO SCH (21:37)
[2021-07-08] MEDS ORDERED: methaDONE HCL 10 MG TABLET ONE (02:46)
[2021-07-08] MEDS ORDERED: methaDONE HCL 40 MG DISPERSABLE TABLET ONE (02:46)
[2021-07-08] MEDS: methaDONE 80 MG, methaDONE 10 MG PO SCH (05:58)
[2021-07-08] MEDS: BUDESONIDE/FORMETEROL FUMARATE 160/4.5 mcg INHALER IH SCH ×2 (10:56→21:41)
[2021-07-08] MEDS: PRENATAL VITAMINS W/ FOLIC ACID TABLET (FP) PO SCH (10:56)
[2021-07-08] MEDS: BACITRACIN 0.9 GM PACKET TP SCH ×2 (10:57→21:41)
[2021-07-08] MEDS: amLODIPine BESYLATE 10 MG TABLET (FP) PO SCH (10:57)
[2021-07-08] MEDS: ACETAMINOPHEN 325 MG TABLET (FP) PO PRN (10:57)
[2021-07-08] MEDS: PANTOPRAZOLE 20 MG TABLET PO SCH (10:57)
[2021-07-08] MEDS: NICOTINE 10 MG CARTRIDGE (INHALER) IH PRN (10:58)
[2021-07-08] MEDS: AMMONIUM LACTATE 12% LOTION 225 GM BOTTLE TP SCH (11:40)
[2021-07-08] MEDS: NICOTINE 7 MG/24 HOURS TOPICAL PATCH TD SCH (11:40)
[2021-07-08] MEDS: THIAMINE HCL 100 MG TABLET (FP) PO SCH (21:41)
[2021-07-08] MEDS: MELATONIN 5 MG TABLETS PO SCH (21:41)
[2021-07-09] MEDS ORDERED: methaDONE HCL 10 MG TABLET ONE (05:05)
[2021-07-09] MEDS ORDERED: methaDONE HCL 40 MG DISPERSABLE TABLET ONE (05:05)
[2021-07-09] MEDS: methaDONE 80 MG, methaDONE 10 MG PO SCH (05:43)
[2021-07-09] MEDS: BUDESONIDE/FORMETEROL FUMARATE 160/4.5 mcg INHALER IH SCH ×2 (10:37→21:40)
[2021-07-09] MEDS: PRENATAL VITAMINS W/ FOLIC ACID TABLET (FP) PO SCH (10:37)
[2021-07-09] MEDS: NICOTINE 7 MG/24 HOURS TOPICAL PATCH TD SCH (10:38)
[2021-07-09] MEDS: BACITRACIN 0.9 GM PACKET TP SCH ×2 (10:38→21:40)
[2021-07-09] MEDS: amLODIPine BESYLATE 10 MG TABLET (FP) PO SCH (10:38)
[2021-07-09] MEDS: PANTOPRAZOLE 20 MG TABLET PO SCH (10:38)
[2021-07-09] MEDS: AMMONIUM LACTATE 12% LOTION 225 GM BOTTLE TP SCH (10:39)
[2021-07-09] MEDS: ACETAMINOPHEN 325 MG TABLET (FP) PO PRN (19:55)
[2021-07-09] MEDS: MELATONIN 5 MG TABLETS PO SCH (21:40)
[2021-07-09] MEDS: THIAMINE HCL 100 MG TABLET (FP) PO SCH (21:40)
[2021-07-10] MEDS ORDERED: methaDONE HCL 40 MG DISPERSABLE TABLET ONE (04:16)
[2021-07-10] MEDS ORDERED: methaDONE HCL 10 MG TABLET ONE (04:16)
[2021-07-10] MEDS: methaDONE 80 MG, methaDONE 10 MG PO SCH (06:11)
[2021-07-10] MEDS: NICOTINE 10 MG CARTRIDGE (INHALER) IH PRN ×2 (06:12→21:11)
[2021-07-10] MEDS: PRENATAL VITAMINS W/ FOLIC ACID TABLET (FP) PO SCH (10:55)
[2021-07-10] MEDS: PANTOPRAZOLE 20 MG TABLET PO SCH (10:55)
[2021-07-10] MEDS: BACITRACIN 0.9 GM PACKET TP SCH ×2 (10:55→21:11)
[2021-07-10] MEDS: NICOTINE 7 MG/24 HOURS TOPICAL PATCH TD SCH (10:55)
[2021-07-10] MEDS: BUDESONIDE/FORMETEROL FUMARATE 160/4.5 mcg INHALER IH SCH ×2 (10:55→21:11)
[2021-07-10] MEDS: ACETAMINOPHEN 325 MG TABLET (FP) PO PRN ×2 (10:57→21:12)
[2021-07-10] MEDS: AMMONIUM LACTATE 12% LOTION 225 GM BOTTLE TP SCH (10:57)
[2021-07-10] MEDS: amLODIPine BESYLATE 10 MG TABLET (FP) PO SCH (14:38)
[2021-07-10] MEDS: THIAMINE HCL 100 MG TABLET (FP) PO SCH (21:11)
[2021-07-10] MEDS: MELATONIN 5 MG TABLETS PO SCH (21:11)
[2021-07-11] MEDS ORDERED: methaDONE HCL 10 MG TABLET ONE (04:16)
[2021-07-11] MEDS ORDERED: methaDONE HCL 40 MG DISPERSABLE TABLET ONE (04:16)
[2021-07-11] MEDS: methaDONE 80 MG, methaDONE 10 MG PO SCH (06:19)
[2021-07-11] MEDS: ACETAMINOPHEN 325 MG TABLET (FP) PO PRN ×2 (10:45→21:24)
[2021-07-11] MEDS: PANTOPRAZOLE 20 MG TABLET PO SCH (10:45)
[2021-07-11] MEDS: BUDESONIDE/FORMETEROL FUMARATE 160/4.5 mcg INHALER IH SCH ×2 (10:45→21:22)
[2021-07-11] MEDS: amLODIPine BESYLATE 10 MG TABLET (FP) PO SCH (10:45)
[2021-07-11] MEDS: PRENATAL VITAMINS W/ FOLIC ACID TABLET (FP) PO SCH (10:45)
[2021-07-11] MEDS: NICOTINE 7 MG/24 HOURS TOPICAL PATCH TD SCH (10:47)
[2021-07-11] MEDS: BACITRACIN 0.9 GM PACKET TP SCH ×2 (10:47→21:22)
[2021-07-11] MEDS: AMMONIUM LACTATE 12% LOTION 225 GM BOTTLE TP SCH (10:47)
[2021-07-11] MEDS: THIAMINE HCL 100 MG TABLET (FP) PO SCH (21:23)
[2021-07-11] MEDS: MELATONIN 5 MG TABLETS PO SCH (21:23)
[2021-07-12] MEDS ORDERED: methaDONE HCL 10 MG TABLET ONE (05:14)
[2021-07-12] MEDS ORDERED: methaDONE HCL 40 MG DISPERSABLE TABLET ONE (05:15)
[2021-07-12] MEDS: methaDONE 80 MG, methaDONE 10 MG PO SCH (06:09)
[2021-07-12] MEDS: BACITRACIN 0.9 GM PACKET TP SCH ×2 (10:46→21:20)
[2021-07-12] MEDS: PRENATAL VITAMINS W/ FOLIC ACID TABLET (FP) PO SCH (10:47)
[2021-07-12] MEDS: amLODIPine BESYLATE 10 MG TABLET (FP) PO SCH (10:47)
[2021-07-12] MEDS: NICOTINE 7 MG/24 HOURS TOPICAL PATCH TD SCH (10:47)
[2021-07-12] MEDS: PANTOPRAZOLE 20 MG TABLET PO SCH (10:47)
[2021-07-12] MEDS: BUDESONIDE/FORMETEROL FUMARATE 160/4.5 mcg INHALER IH SCH ×2 (10:47→21:21)
[2021-07-12] MEDS: AMMONIUM LACTATE 12% LOTION 225 GM BOTTLE TP SCH (10:47)
[2021-07-12] MEDS: ACETAMINOPHEN 325 MG TABLET (FP) PO PRN ×2 (10:49→21:22)
[2021-07-12] MEDS: THIAMINE HCL 100 MG TABLET (FP) PO SCH (21:20)
[2021-07-12] MEDS: NICOTINE 10 MG CARTRIDGE (INHALER) IH PRN (21:20)
[2021-07-12] MEDS: MELATONIN 5 MG TABLETS PO SCH (21:20)
[2021-07-13] MEDS ORDERED: methaDONE HCL 40 MG DISPERSABLE TABLET ONE (06:07)
[2021-07-13] MEDS: methaDONE 80 MG, methaDONE 10 MG PO SCH (06:07)
[2021-07-13] MEDS ORDERED: methaDONE HCL 10 MG TABLET ONE (06:07)
[2021-07-13] MEDS: ACETAMINOPHEN 325 MG TABLET (FP) PO PRN ×2 (11:03→21:41)
[2021-07-13] MEDS: PRENATAL VITAMINS W/ FOLIC ACID TABLET (FP) PO SCH (11:03)
[2021-07-13] MEDS: amLODIPine BESYLATE 10 MG TABLET (FP) PO SCH (11:03)
[2021-07-13] MEDS: BACITRACIN 0.9 GM PACKET TP SCH ×2 (11:03→21:39)
[2021-07-13] MEDS: PANTOPRAZOLE 20 MG TABLET PO SCH (11:04)
[2021-07-13] MEDS: NICOTINE 10 MG CARTRIDGE (INHALER) IH PRN ×2 (11:05→21:42)
[2021-07-13] MEDS: NICOTINE 7 MG/24 HOURS TOPICAL PATCH TD SCH (11:05)
[2021-07-13] MEDS: AMMONIUM LACTATE 12% LOTION 225 GM BOTTLE TP SCH (11:06)
[2021-07-13] MEDS: BUDESONIDE/FORMETEROL FUMARATE 160/4.5 mcg INHALER IH SCH ×2 (11:06→21:39)
[2021-07-13] MEDS: THIAMINE HCL 100 MG TABLET (FP) PO SCH (21:39)
[2021-07-13] MEDS: MELATONIN 5 MG TABLETS PO SCH (22:20)
[2021-07-14] MEDS: methaDONE 80 MG, methaDONE 10 MG PO SCH (05:58)
[2021-07-14] MEDS ORDERED: methaDONE HCL 10 MG TABLET ONE (05:58)
[2021-07-14] MEDS ORDERED: methaDONE HCL 40 MG DISPERSABLE TABLET ONE (05:58)
[2021-07-14] MEDS: BACITRACIN 0.9 GM PACKET TP SCH ×2 (12:15→21:14)
[2021-07-14] MEDS: PANTOPRAZOLE 20 MG TABLET PO SCH (12:15)
[2021-07-14] MEDS: amLODIPine BESYLATE 10 MG TABLET (FP) PO SCH (12:15)
[2021-07-14] MEDS: BUDESONIDE/FORMETEROL FUMARATE 160/4.5 mcg INHALER IH SCH ×2 (12:16→21:16)
[2021-07-14] MEDS: AMMONIUM LACTATE 12% LOTION 225 GM BOTTLE TP SCH (12:18)
[2021-07-14] MEDS: PRENATAL VITAMINS W/ FOLIC ACID TABLET (FP) PO SCH (12:18)
[2021-07-14] MEDS: NICOTINE 7 MG/24 HOURS TOPICAL PATCH TD SCH (12:18)
[2021-07-14] MEDS: ACETAMINOPHEN 325 MG TABLET (FP) PO PRN ×2 (12:19→21:15)
[2021-07-14] MEDS: THIAMINE HCL 100 MG TABLET (FP) PO SCH (21:15)
[2021-07-14] MEDS: MELATONIN 5 MG TABLETS PO SCH (21:15)
[2021-07-14] MEDS: NICOTINE 10 MG CARTRIDGE (INHALER) IH PRN (21:16)
[2021-07-15] MEDS: ACETAMINOPHEN 325 MG TABLET (FP) PO PRN ×2 (04:29→21:21)
[2021-07-15] MEDS ORDERED: methaDONE HCL 10 MG TABLET ONE (05:54)
[2021-07-15] MEDS ORDERED: methaDONE HCL 40 MG DISPERSABLE TABLET ONE (05:55)
[2021-07-15] MEDS: methaDONE 80 MG, methaDONE 10 MG PO SCH (05:55)
[2021-07-15] MEDS: PRENATAL VITAMINS W/ FOLIC ACID TABLET (FP) PO SCH (10:39)
[2021-07-15] MEDS: BUDESONIDE/FORMETEROL FUMARATE 160/4.5 mcg INHALER IH SCH ×2 (10:39→21:21)
[2021-07-15] MEDS: PANTOPRAZOLE 20 MG TABLET PO SCH (10:39)
[2021-07-15] MEDS: NICOTINE 7 MG/24 HOURS TOPICAL PATCH TD SCH (10:39)
[2021-07-15] MEDS: BACITRACIN 0.9 GM PACKET TP SCH ×2 (10:39→21:20)
[2021-07-15] MEDS: AMMONIUM LACTATE 12% LOTION 225 GM BOTTLE TP SCH (10:39)
[2021-07-15] MEDS: amLODIPine BESYLATE 10 MG TABLET (FP) PO SCH (10:39)
[2021-07-15] MEDS: MELATONIN 5 MG TABLETS PO SCH (21:20)
[2021-07-15] MEDS: THIAMINE HCL 100 MG TABLET (FP) PO SCH (21:20)
[2021-07-16] MEDS ORDERED: methaDONE HCL 10 MG TABLET ONE (04:39)
[2021-07-16] MEDS ORDERED: methaDONE HCL 40 MG DISPERSABLE TABLET ONE (04:39)
[2021-07-16] MEDS: methaDONE 80 MG, methaDONE 10 MG PO SCH (05:49)
[2021-07-16] MEDS: PRENATAL VITAMINS W/ FOLIC ACID TABLET (FP) PO SCH (10:56)
[2021-07-16] MEDS: NICOTINE 7 MG/24 HOURS TOPICAL PATCH TD SCH (10:57)
[2021-07-16] MEDS: AMMONIUM LACTATE 12% LOTION 225 GM BOTTLE TP SCH (10:57)
[2021-07-16] MEDS: BUDESONIDE/FORMETEROL FUMARATE 160/4.5 mcg INHALER IH SCH ×2 (10:57→21:35)
[2021-07-16] MEDS: PANTOPRAZOLE 20 MG TABLET PO SCH (10:57)
[2021-07-16] MEDS: BACITRACIN 0.9 GM PACKET TP SCH ×2 (10:57→21:34)
[2021-07-16] MEDS: amLODIPine BESYLATE 10 MG TABLET (FP) PO SCH (10:57)
[2021-07-16] MEDS: ACETAMINOPHEN 325 MG TABLET (FP) PO PRN ×2 (10:58→21:34)
[2021-07-16] MEDS: THIAMINE HCL 100 MG TABLET (FP) PO SCH (21:34)
[2021-07-16] MEDS: MELATONIN 5 MG TABLETS PO SCH (21:34)
[2021-07-17] MEDS ORDERED: methaDONE HCL 40 MG DISPERSABLE TABLET ONE (04:19)
[2021-07-17] MEDS ORDERED: methaDONE HCL 10 MG TABLET ONE (04:19)
[2021-07-17] MEDS: methaDONE 80 MG, methaDONE 10 MG PO SCH (05:52)
[2021-07-17] MEDS: PANTOPRAZOLE 20 MG TABLET PO SCH (10:36)
[2021-07-17] MEDS: PRENATAL VITAMINS W/ FOLIC ACID TABLET (FP) PO SCH (10:36)
[2021-07-17] MEDS: amLODIPine BESYLATE 10 MG TABLET (FP) PO SCH (10:36)
[2021-07-17] MEDS: BACITRACIN 0.9 GM PACKET TP SCH ×2 (10:36→22:01)
[2021-07-17] MEDS: ACETAMINOPHEN 325 MG TABLET (FP) PO PRN ×2 (10:36→21:46)
[2021-07-17] MEDS: NICOTINE 7 MG/24 HOURS TOPICAL PATCH TD SCH (10:37)
[2021-07-17] MEDS: BUDESONIDE/FORMETEROL FUMARATE 160/4.5 mcg INHALER IH SCH ×2 (10:37→22:01)
[2021-07-17] MEDS: NICOTINE 10 MG CARTRIDGE (INHALER) IH PRN (10:38)
[2021-07-17] MEDS: AMMONIUM LACTATE 12% LOTION 225 GM BOTTLE TP SCH (10:40)
[2021-07-17] MEDS: THIAMINE HCL 100 MG TABLET (FP) PO SCH (21:45)
[2021-07-17] MEDS: MELATONIN 5 MG TABLETS PO SCH (21:45)
[2021-07-18] MEDS ORDERED: methaDONE HCL 10 MG TABLET ONE (03:48)
[2021-07-18] MEDS ORDERED: methaDONE HCL 40 MG DISPERSABLE TABLET ONE (03:48)
[2021-07-18] MEDS: methaDONE 80 MG, methaDONE 10 MG PO SCH (06:00)
[2021-07-18] MEDS: ACETAMINOPHEN 325 MG TABLET (FP) PO PRN ×2 (06:02→10:09)
[2021-07-18 07:05] VITALS: BP 127/77; PULSE 56; TEMP 98.4
[2021-07-18] MEDS: BUDESONIDE/FORMETEROL FUMARATE 160/4.5 mcg INHALER IH SCH (10:07)
[2021-07-18] MEDS: PRENATAL VITAMINS W/ FOLIC ACID TABLET (FP) PO SCH (10:08)
[2021-07-18] MEDS: amLODIPine BESYLATE 10 MG TABLET (FP) PO SCH (10:08)
[2021-07-18] MEDS: NICOTINE 7 MG/24 HOURS TOPICAL PATCH TD SCH (10:08)
[2021-07-18] MEDS: PANTOPRAZOLE 20 MG TABLET PO SCH (10:08)
[2021-07-18] MEDS: AMMONIUM LACTATE 12% LOTION 225 GM BOTTLE TP SCH (10:09)
[2021-07-18] MEDS: BACITRACIN 0.9 GM PACKET TP SCH (10:09)
== END 2021-07-18 11:10 | disposition home or self-care (01) | DRG 895 ==
LOC: YASAS 15:13 → Y5N 15:14
PROVIDERS: ADMIT Allergy & Immunology; ATTEND Allergy & Immunology
PROC: HZ42ZZZ Group Counseling for Substance Abuse Treatment, Cognitive-Behavioral (ICD-10-PCS; principal; 2021-06-18)
DX: F10.20 Alcohol dependence, uncomplicated (principal); F11.20 Opioid dependence, uncomplicated; F14.20 Cocaine dependence, uncomplicated; L97.909 Non-pressure chronic ulcer of unspecified part of unspecified lower leg with unspecified severity; F17.210 Nicotine dependence, cigarettes, uncomplicated; I10 Essential (primary) hypertension; J45.909 Unspecified asthma, uncomplicated; K21.9 Gastro-esophageal reflux disease without esophagitis; M54.32 Sciatica, left side; Z99.89 Dependence on other enabling machines and devices; Z86.19 Personal history of other infectious and parasitic diseases; Z91.018 Allergy to other foods
CPT/HCPCS: C9803-CS; U0003; U0005

== ENCOUNTER 2021-08-29 11:11 | Inpatient (IN) | payer OTHER ==
[2021-08-29] MEDS ORDERED: MAG HYDROX/AL HYDROX/SIMETH 30 ML UNIT-DOSE CUP PO PRN (11:44)
[2021-08-29] MEDS ORDERED: ACETAMINOPHEN 325 MG TABLET (FP) PO PRN ×2 (11:44)
[2021-08-29] MEDS ORDERED: NICOTINE 10 MG CARTRIDGE (INHALER) IH PRN (11:44)
[2021-08-29] MEDS ORDERED: ONDANSETRON *ODT* 4 MG TABLET SL PRN (11:44)
[2021-08-29] MEDS ORDERED: DICYCLOMINE HCL 10 MG CAPSULE PO PRN (11:44)
[2021-08-29] MEDS ORDERED: chlordiazePOXIDE HCL 25 MG CAPSULE PO PRN (11:44)
[2021-08-29] MEDS ORDERED: LOPERAMIDE HCL 2 MG CAPSULE PO PRN (11:44)
[2021-08-29] MEDS ORDERED: MAGNESIUM HYDROX 2400MG/30ML ORAL SUSPENSION 30 ML CUP PO PRN (11:44)
[2021-08-29] MEDS ORDERED: BENZOCAINE/MENTHOL (CHLORASEPTIC ) LOZENGE MM PRN (11:44)
[2021-08-29] MEDS ORDERED: BISMUTH SUBSALICYLATE 262 MG/15 ML BTL PO PRN (11:44)
[2021-08-29] MEDS ORDERED: MAGNESIUM CITRATE 300 ML BOTTLE PO PRN (11:44)
[2021-08-29 12:23] VITALS: BMI 30.1
[2021-08-29] MEDS: hydrOXYzine PAMOATE 25 MG CAPSULE (FP) PO SCH ×3 (13:14→22:33)
[2021-08-29] MEDS: PRENATAL VITAMINS W/ FOLIC ACID TABLET (FP) PO SCH (13:14)
[2021-08-29] MEDS: METHOCARBAMOL 500 MG TABLET PO PRN (13:14)
[2021-08-29] MEDS: NICOTINE 21 MG/24 HOURS TOPICAL PATCH TD SCH (13:17)
[2021-08-29 17:07] LABS: HEMATOCRIT 35.7 % (32.4-45.2); MCH 24.6 pg (25.7-33.7); MCHC 33.7 g/dl (32.0-36.0); MEAN CELL VOLUME 73.2 fl (80-96); MEAN PLT VOLUME 8.9 fl (7.5-11.1); PLATELET COUNT 210 10^3/uL (134-434); RBC 4.88 M/mm3 (3.60-5.2); RDW 21.6 % (11.6-15.6); WHITE BLOOD COUNT 4.7 K/mm3 (4.0-10.0)
[2021-08-29 17:13] LABS: ALBUMIN 3.9 g/dl (3.4-5.0)
[2021-08-29 17:21] LABS: BLOOD UREA NITROGEN 12.4 mg/dL (7-18); CALCIUM 9.7 mg/dL (8.5-10.1)
[2021-08-29 17:23] LABS: CREATININE 0.7 mg/dL (0.55-1.3)
[2021-08-29 17:24] LABS: BILIRUBIN,TOTAL 1.5 mg/dL (0.2-1); TOT PROT 8.3 g/dl (6.4-8.2)
[2021-08-29] MEDS: chlordiazePOXIDE HCL 25 MG CAPSULE PO SCH ×2 (17:41→22:33)
[2021-08-29] MEDS: THIAMINE HCL 100 MG TABLET (FP) PO SCH (22:32)
[2021-08-29] MEDS: MELATONIN 5 MG TABLETS PO SCH (22:33)
[2021-08-29] MEDS: BUDESONIDE/FORMETEROL FUMARATE 160/4.5 mcg INHALER IH SCH (22:33)
[2021-08-30] MEDS: chlordiazePOXIDE HCL 25 MG CAPSULE PO SCH ×4 (06:33→22:38)
[2021-08-30] MEDS: METHOCARBAMOL 500 MG TABLET PO PRN (06:34)
[2021-08-30] MEDS: hydrOXYzine PAMOATE 25 MG CAPSULE (FP) PO SCH ×5 (06:34→22:36)
[2021-08-30] MEDS: amLODIPine BESYLATE 10 MG TABLET (FP) PO SCH (10:09)
[2021-08-30] MEDS: PRENATAL VITAMINS W/ FOLIC ACID TABLET (FP) PO SCH (10:09)
[2021-08-30] MEDS: PANTOPRAZOLE 20 MG TABLET PO SCH (10:09)
[2021-08-30] MEDS: NICOTINE 21 MG/24 HOURS TOPICAL PATCH TD SCH (10:10)
[2021-08-30] MEDS: BUDESONIDE/FORMETEROL FUMARATE 160/4.5 mcg INHALER IH SCH ×2 (10:15→22:36)
[2021-08-30] MEDS ORDERED: methaDONE 80 MG, methaDONE 20 MG PO ONE (10:25)
[2021-08-30] MEDS ORDERED: methaDONE HCL 10 MG TABLET PO ONE (10:25)
[2021-08-30] MEDS ORDERED: methaDONE HCL 10 MG TABLET ONE (11:02)
[2021-08-30] MEDS ORDERED: methaDONE HCL 40 MG DISPERSABLE TABLET ONE (11:02)
[2021-08-30] MEDS: MELATONIN 5 MG TABLETS PO SCH (22:36)
[2021-08-30] MEDS: THIAMINE HCL 100 MG TABLET (FP) PO SCH (22:37)
[2021-08-31] MEDS ORDERED: methaDONE HCL 10 MG TABLET ONE (04:04)
[2021-08-31] MEDS ORDERED: methaDONE HCL 40 MG DISPERSABLE TABLET ONE (04:04)
[2021-08-31] MEDS ORDERED: methaDONE HCL 10 MG TABLET PO SCH (06:00)
[2021-08-31] MEDS: methaDONE 80 MG, methaDONE 20 MG PO SCH (06:10)
[2021-08-31] MEDS: chlordiazePOXIDE HCL 25 MG CAPSULE PO SCH ×2 (06:11→10:53)
[2021-08-31] MEDS: hydrOXYzine PAMOATE 25 MG CAPSULE (FP) PO SCH ×3 (06:12→14:30)
[2021-08-31] MEDS: PRENATAL VITAMINS W/ FOLIC ACID TABLET (FP) PO SCH (10:52)
[2021-08-31] MEDS: NICOTINE 21 MG/24 HOURS TOPICAL PATCH TD SCH (10:52)
[2021-08-31] MEDS: amLODIPine BESYLATE 10 MG TABLET (FP) PO SCH (10:53)
[2021-08-31] MEDS: PANTOPRAZOLE 20 MG TABLET PO SCH (10:53)
[2021-08-31] MEDS: BUDESONIDE/FORMETEROL FUMARATE 160/4.5 mcg INHALER IH SCH ×2 (11:05→22:46)
[2021-08-31] MEDS: METHOCARBAMOL 500 MG TABLET PO PRN (17:01)
[2021-08-31] MEDS: hydrOXYzine PAMOATE 25 MG CAPSULE (FP) PO PRN ×2 (17:01→22:46)
[2021-08-31] MEDS: chlordiazePOXIDE 5 MG CAPSULE PO SCH ×2 (17:01→22:46)
[2021-08-31] MEDS: MELATONIN 5 MG TABLETS PO SCH (22:45)
[2021-08-31] MEDS: THIAMINE HCL 100 MG TABLET (FP) PO SCH (23:52)
[2021-09-01] MEDS ORDERED: chlordiazePOXIDE HCL 10 MG CAPSULE PO PRN
[2021-09-01] MEDS ORDERED: methaDONE HCL 10 MG TABLET ONE (04:24)
[2021-09-01] MEDS ORDERED: methaDONE HCL 40 MG DISPERSABLE TABLET ONE (04:24)
[2021-09-01] MEDS: methaDONE 80 MG, methaDONE 20 MG PO SCH (06:40)
[2021-09-01] MEDS: chlordiazePOXIDE HCL 10 MG CAPSULE PO SCH ×2 (06:40→11:06)
[2021-09-01] MEDS: NICOTINE 21 MG/24 HOURS TOPICAL PATCH TD SCH (11:05)
[2021-09-01] MEDS: PRENATAL VITAMINS W/ FOLIC ACID TABLET (FP) PO SCH (11:05)
[2021-09-01] MEDS: IBUPROFEN 400 MG TABLET (FP) PO PRN ×2 (11:05→17:34)
[2021-09-01] MEDS: amLODIPine BESYLATE 10 MG TABLET (FP) PO SCH (11:06)
[2021-09-01] MEDS: PANTOPRAZOLE 20 MG TABLET PO SCH (11:06)
[2021-09-01] MEDS: BUDESONIDE/FORMETEROL FUMARATE 160/4.5 mcg INHALER IH SCH ×2 (11:18→22:13)
[2021-09-01] MEDS ORDERED: chlordiazePOXIDE HCL 10 MG CAPSULE PO SCH (17:00)
[2021-09-01] MEDS: chlordiazePOXIDE 5 MG CAPSULE PO SCH ×2 (17:33→22:14)
[2021-09-01] MEDS: hydrOXYzine PAMOATE 25 MG CAPSULE (FP) PO PRN (22:13)
[2021-09-01] MEDS: METHOCARBAMOL 500 MG TABLET PO PRN (22:14)
[2021-09-01] MEDS: THIAMINE HCL 100 MG TABLET (FP) PO SCH (22:14)
[2021-09-01] MEDS: MELATONIN 5 MG TABLETS PO SCH (22:14)
[2021-09-02] MEDS ORDERED: methaDONE HCL 40 MG DISPERSABLE TABLET ONE (04:09)
[2021-09-02] MEDS ORDERED: methaDONE HCL 10 MG TABLET ONE (04:09)
[2021-09-02] MEDS ORDERED: chlordiazePOXIDE HCL 10 MG CAPSULE PO SCH ×2 (05:00)
[2021-09-02] MEDS: methaDONE 80 MG, methaDONE 20 MG PO SCH (07:38)
[2021-09-02] MEDS: ALBUTEROL SO4 HFA INHALER IH PRN ×2 (07:58→11:00)
[2021-09-02] MEDS: amLODIPine BESYLATE 10 MG TABLET (FP) PO SCH (10:58)
[2021-09-02] MEDS: PANTOPRAZOLE 20 MG TABLET PO SCH (10:58)
[2021-09-02] MEDS: NICOTINE 21 MG/24 HOURS TOPICAL PATCH TD SCH (10:58)
[2021-09-02] MEDS: PRENATAL VITAMINS W/ FOLIC ACID TABLET (FP) PO SCH (10:58)
[2021-09-02] MEDS: BUDESONIDE/FORMETEROL FUMARATE 160/4.5 mcg INHALER IH SCH ×2 (10:59→23:29)
[2021-09-02] MEDS ORDERED: chlordiazePOXIDE 5 MG CAPSULE PO ONE (14:00)
[2021-09-02] MEDS ORDERED: chlordiazePOXIDE 5 MG CAPSULE PO SCH (17:00)
[2021-09-02] MEDS: IBUPROFEN 400 MG TABLET (FP) PO PRN (17:18)
[2021-09-02] MEDS: MELATONIN 5 MG TABLETS PO SCH (22:30)
[2021-09-02] MEDS: METHOCARBAMOL 500 MG TABLET PO PRN (22:30)
[2021-09-02] MEDS: THIAMINE HCL 100 MG TABLET (FP) PO SCH (23:29)
[2021-09-03 00:06] LABS: SARS-CoV-2 NAA Not Detected (Not Detected)
[2021-09-03] MEDS ORDERED: methaDONE HCL 10 MG TABLET ONE (04:46)
[2021-09-03] MEDS ORDERED: methaDONE HCL 40 MG DISPERSABLE TABLET ONE (04:46)
[2021-09-03] MEDS ORDERED: chlordiazePOXIDE HCL 10 MG CAPSULE PO ONE (05:00)
[2021-09-03] MEDS ORDERED: chlordiazePOXIDE 5 MG CAPSULE PO ONE (05:00)
[2021-09-03] MEDS: methaDONE 80 MG, methaDONE 20 MG PO SCH (06:23)
[2021-09-03] MEDS: PANTOPRAZOLE 20 MG TABLET PO SCH (11:04)
[2021-09-03] MEDS: PRENATAL VITAMINS W/ FOLIC ACID TABLET (FP) PO SCH (11:04)
[2021-09-03] MEDS: BUDESONIDE/FORMETEROL FUMARATE 160/4.5 mcg INHALER IH SCH ×2 (11:04→23:09)
[2021-09-03] MEDS: amLODIPine BESYLATE 10 MG TABLET (FP) PO SCH (11:10)
[2021-09-03] MEDS: NICOTINE 21 MG/24 HOURS TOPICAL PATCH TD SCH (11:10)
[2021-09-03] MEDS ORDERED: ALBUTEROL SO4 0.083% IH SOL 2.5 MG/3 ML VIAL.NEB. NEB ONE (20:15)
[2021-09-03 21:30] VITALS: BP 128/81; PULSE 101; TEMP 98.4
[2021-09-03] MEDS: MELATONIN 5 MG TABLETS PO SCH (23:09)
[2021-09-03] MEDS: THIAMINE HCL 100 MG TABLET (FP) PO SCH (23:12)
== END 2021-09-03 21:00 | disposition other institution (70) | DRG 897 ==
LOC: YASAS 11:11 → Y6N 12:41
PROVIDERS: ADMIT Allergy & Immunology; ATTEND Surgery
PROC: HZ2ZZZZ Detoxification Services for Substance Abuse Treatment (ICD-10-PCS; principal; 2021-08-29)
DX: F10.230 Alcohol dependence with withdrawal, uncomplicated (principal); F11.20 Opioid dependence, uncomplicated; F14.20 Cocaine dependence, uncomplicated; F13.20 Sedative, hypnotic or anxiolytic dependence, uncomplicated; F17.210 Nicotine dependence, cigarettes, uncomplicated; I10 Essential (primary) hypertension; J45.909 Unspecified asthma, uncomplicated; K21.9 Gastro-esophageal reflux disease without esophagitis; M54.32 Sciatica, left side; E78.5 Hyperlipidemia, unspecified; R76.8 Other specified abnormal immunological findings in serum; M17.0 Bilateral primary osteoarthritis of knee; Z99.89 Dependence on other enabling machines and devices; Z91.013 Allergy to seafood; Z59.02 Unsheltered homelessness
CPT/HCPCS: 36415; 71046-TC-FY; 80053; 85027; 86593; 86780; 87811; 94640; C9803-CS; U0003; U0005

== ENCOUNTER 2021-09-03 21:08 | Inpatient (IN) | payer OTHER ==
[2021-09-03] MEDS ORDERED: BENZOCAINE/MENTHOL (CHLORASEPTIC ) LOZENGE MM PRN (22:43)
[2021-09-03] MEDS ORDERED: LOPERAMIDE HCL 2 MG CAPSULE PO PRN (22:43)
[2021-09-03] MEDS ORDERED: P-EPHED 60MG/TRIPROLIDI 2.5MG TABLET PO PRN (22:43)
[2021-09-03] MEDS ORDERED: MAG HYDROX/AL HYDROX/SIMETH 30 ML UNIT-DOSE CUP PO PRN (22:43)
[2021-09-03] MEDS ORDERED: IBUPROFEN 400 MG TABLET (FP) PO PRN (22:43)
[2021-09-03] MEDS ORDERED: MAGNESIUM CITRATE 300 ML BOTTLE PO PRN (22:43)
[2021-09-03] MEDS ORDERED: guaiFENesin 200 MG/10 ML 10 ML UNIT-DOSE CUPS PO PRN (22:43)
[2021-09-03] MEDS ORDERED: ACETAMINOPHEN 325 MG TABLET (FP) PO PRN (22:43)
[2021-09-03] MEDS ORDERED: MAGNESIUM HYDROX 2400MG/30ML ORAL SUSPENSION 30 ML CUP PO PRN (22:43)
[2021-09-03] MEDS: MELATONIN 5 MG TABLETS PO SCH (23:50)
[2021-09-04] MEDS ORDERED: methaDONE HCL 40 MG DISPERSABLE TABLET PO SCH (06:00)
[2021-09-04] MEDS ORDERED: methaDONE HCL 10 MG TABLET ONE (07:31)
[2021-09-04] MEDS ORDERED: methaDONE HCL 40 MG DISPERSABLE TABLET ONE (07:31)
[2021-09-04] MEDS: methaDONE 80 MG, methaDONE 20 MG PO SCH (07:34)
[2021-09-04] MEDS: PRENATAL VITAMINS W/ FOLIC ACID TABLET (FP) PO SCH (10:50)
[2021-09-04] MEDS: THIAMINE HCL 100 MG TABLET (FP) PO SCH (22:13)
[2021-09-04] MEDS: MELATONIN 5 MG TABLETS PO SCH (22:13)
[2021-09-05] MEDS ORDERED: methaDONE HCL 10 MG TABLET ONE (07:00)
[2021-09-05] MEDS ORDERED: methaDONE HCL 40 MG DISPERSABLE TABLET ONE (07:00)
[2021-09-05] MEDS: methaDONE 80 MG, methaDONE 20 MG PO SCH (07:19)
[2021-09-05] MEDS: PRENATAL VITAMINS W/ FOLIC ACID TABLET (FP) PO SCH (13:51)
[2021-09-05] MEDS ORDERED: COLLOIDAL OATMEAL 1 BAR EACH TP PRN (15:14)
[2021-09-05] MEDS ORDERED: NICOTINE 10 MG CARTRIDGE (INHALER) IH PRN (15:15)
[2021-09-05] MEDS: MELATONIN 5 MG TABLETS PO SCH (22:00)
[2021-09-05] MEDS: THIAMINE HCL 100 MG TABLET (FP) PO SCH (22:00)
[2021-09-06] MEDS ORDERED: methaDONE HCL 40 MG DISPERSABLE TABLET ONE (05:46)
[2021-09-06] MEDS ORDERED: methaDONE HCL 10 MG TABLET ONE (05:46)
[2021-09-06] MEDS: methaDONE 80 MG, methaDONE 20 MG PO SCH (07:14)
[2021-09-06] MEDS: PRENATAL VITAMINS W/ FOLIC ACID TABLET (FP) PO SCH (10:38)
[2021-09-06] MEDS: THIAMINE HCL 100 MG TABLET (FP) PO SCH (21:45)
[2021-09-06] MEDS: MELATONIN 5 MG TABLETS PO SCH (21:45)
[2021-09-07] MEDS ORDERED: methaDONE HCL 10 MG TABLET ONE (04:20)
[2021-09-07] MEDS ORDERED: methaDONE HCL 40 MG DISPERSABLE TABLET ONE (04:21)
[2021-09-07] MEDS: methaDONE 80 MG, methaDONE 20 MG PO SCH (07:21)
[2021-09-07] MEDS: PRENATAL VITAMINS W/ FOLIC ACID TABLET (FP) PO SCH ×2 (10:35→10:45)
[2021-09-07] MEDS: MELATONIN 5 MG TABLETS PO SCH (22:03)
[2021-09-07] MEDS: THIAMINE HCL 100 MG TABLET (FP) PO SCH (22:03)
[2021-09-08] MEDS ORDERED: methaDONE HCL 10 MG TABLET ONE (03:47)
[2021-09-08] MEDS ORDERED: methaDONE HCL 40 MG DISPERSABLE TABLET ONE (03:47)
[2021-09-08] MEDS: methaDONE 80 MG, methaDONE 20 MG PO SCH (07:16)
[2021-09-08] MEDS: PRENATAL VITAMINS W/ FOLIC ACID TABLET (FP) PO SCH (10:33)
[2021-09-08] MEDS ORDERED: amLODIPine BESYLATE 10 MG TABLET (FP) PO ONE (13:30)
[2021-09-08] MEDS: hydrOXYzine PAMOATE 25 MG CAPSULE (FP) PO PRN ×2 (14:58→21:44)
[2021-09-08] MEDS: ALBUTEROL SO4 HFA INHALER IH PRN (15:10)
[2021-09-08] MEDS: BUDESONIDE/FORMETEROL FUMARATE 160/4.5 mcg INHALER IH SCH ×2 (15:21→21:46)
[2021-09-08] MEDS: THIAMINE HCL 100 MG TABLET (FP) PO SCH (21:44)
[2021-09-08] MEDS: MELATONIN 5 MG TABLETS PO SCH (21:45)
[2021-09-09] MEDS ORDERED: methaDONE HCL 40 MG DISPERSABLE TABLET ONE (04:17)
[2021-09-09] MEDS ORDERED: methaDONE HCL 10 MG TABLET ONE (04:17)
[2021-09-09] MEDS: methaDONE 80 MG, methaDONE 20 MG PO SCH (06:53)
[2021-09-09] MEDS: PANTOPRAZOLE 20 MG TABLET PO SCH (11:00)
[2021-09-09] MEDS: PRENATAL VITAMINS W/ FOLIC ACID TABLET (FP) PO SCH (11:00)
[2021-09-09] MEDS: amLODIPine BESYLATE 10 MG TABLET (FP) PO SCH (11:00)
[2021-09-09] MEDS: BUDESONIDE/FORMETEROL FUMARATE 160/4.5 mcg INHALER IH SCH ×2 (11:01→21:22)
[2021-09-09] MEDS: MELATONIN 5 MG TABLETS PO SCH (21:21)
[2021-09-09] MEDS: THIAMINE HCL 100 MG TABLET (FP) PO SCH (21:21)
[2021-09-09] MEDS: hydrOXYzine PAMOATE 25 MG CAPSULE (FP) PO PRN (21:23)
[2021-09-10] MEDS ORDERED: methaDONE HCL 10 MG TABLET ONE (03:59)
[2021-09-10] MEDS ORDERED: methaDONE HCL 40 MG DISPERSABLE TABLET ONE (03:59)
[2021-09-10] MEDS: methaDONE 80 MG, methaDONE 20 MG PO SCH (06:06)
[2021-09-10] MEDS: BUDESONIDE/FORMETEROL FUMARATE 160/4.5 mcg INHALER IH SCH ×2 (10:22→21:45)
[2021-09-10] MEDS: hydrOXYzine PAMOATE 25 MG CAPSULE (FP) PO PRN ×2 (10:23→21:44)
[2021-09-10] MEDS: PANTOPRAZOLE 20 MG TABLET PO SCH (10:23)
[2021-09-10] MEDS: PRENATAL VITAMINS W/ FOLIC ACID TABLET (FP) PO SCH (10:23)
[2021-09-10] MEDS: amLODIPine BESYLATE 10 MG TABLET (FP) PO SCH (10:23)
[2021-09-10] MEDS: THIAMINE HCL 100 MG TABLET (FP) PO SCH (21:44)
[2021-09-10] MEDS: MELATONIN 5 MG TABLETS PO SCH (21:45)
[2021-09-11] MEDS ORDERED: methaDONE HCL 40 MG DISPERSABLE TABLET PO SCH (10:00)
[2021-09-11] MEDS ORDERED: methaDONE HCL 10 MG TABLET ONE (10:44)
[2021-09-11] MEDS: methaDONE 80 MG, methaDONE 20 MG PO SCH (10:45)
[2021-09-11] MEDS ORDERED: methaDONE HCL 40 MG DISPERSABLE TABLET ONE (10:45)
[2021-09-11] MEDS: PRENATAL VITAMINS W/ FOLIC ACID TABLET (FP) PO SCH (10:46)
[2021-09-11] MEDS: amLODIPine BESYLATE 10 MG TABLET (FP) PO SCH (10:46)
[2021-09-11] MEDS: PANTOPRAZOLE 20 MG TABLET PO SCH (10:46)
[2021-09-11] MEDS: BUDESONIDE/FORMETEROL FUMARATE 160/4.5 mcg INHALER IH SCH ×2 (10:51→21:43)
[2021-09-11] MEDS: hydrOXYzine PAMOATE 25 MG CAPSULE (FP) PO PRN ×2 (13:39→21:43)
[2021-09-11] MEDS: MELATONIN 5 MG TABLETS PO SCH (21:42)
[2021-09-11] MEDS: THIAMINE HCL 100 MG TABLET (FP) PO SCH (21:42)
[2021-09-12] MEDS ORDERED: methaDONE HCL 10 MG TABLET ONE (03:58)
[2021-09-12] MEDS ORDERED: methaDONE HCL 40 MG DISPERSABLE TABLET ONE (03:59)
[2021-09-12] MEDS: methaDONE 80 MG, methaDONE 20 MG PO SCH (06:26)
[2021-09-12] MEDS: PANTOPRAZOLE 20 MG TABLET PO SCH (10:21)
[2021-09-12] MEDS: amLODIPine BESYLATE 10 MG TABLET (FP) PO SCH (10:21)
[2021-09-12] MEDS: BUDESONIDE/FORMETEROL FUMARATE 160/4.5 mcg INHALER IH SCH ×2 (10:21→21:23)
[2021-09-12] MEDS: PRENATAL VITAMINS W/ FOLIC ACID TABLET (FP) PO SCH (10:21)
[2021-09-12] MEDS: hydrOXYzine PAMOATE 25 MG CAPSULE (FP) PO PRN ×3 (10:23→21:24)
[2021-09-12] MEDS: ALBUTEROL SO4 HFA INHALER IH PRN (17:36)
[2021-09-12] MEDS: MELATONIN 5 MG TABLETS PO SCH (21:23)
[2021-09-12] MEDS: THIAMINE HCL 100 MG TABLET (FP) PO SCH (21:24)
[2021-09-13] MEDS ORDERED: methaDONE HCL 10 MG TABLET ONE (03:52)
[2021-09-13] MEDS ORDERED: methaDONE HCL 40 MG DISPERSABLE TABLET ONE (03:52)
[2021-09-13] MEDS: methaDONE 80 MG, methaDONE 20 MG PO SCH (06:01)
[2021-09-13] MEDS: hydrOXYzine PAMOATE 25 MG CAPSULE (FP) PO PRN ×2 (06:04→21:21)
[2021-09-13] MEDS: ALBUTEROL SO4 HFA INHALER IH PRN (08:20)
[2021-09-13] MEDS ORDERED: ALBUTEROL SO4 2.5/IPRATROPIUM 0.5 INH SOL 3 ML VIAL.NEB. NEB ONE (09:20)
[2021-09-13] MEDS: PANTOPRAZOLE 20 MG TABLET PO SCH (09:25)
[2021-09-13] MEDS: amLODIPine BESYLATE 10 MG TABLET (FP) PO SCH (09:25)
[2021-09-13] MEDS: PRENATAL VITAMINS W/ FOLIC ACID TABLET (FP) PO SCH (09:25)
[2021-09-13] MEDS: BUDESONIDE/FORMETEROL FUMARATE 160/4.5 mcg INHALER IH SCH ×2 (09:27→21:19)
[2021-09-13] MEDS: ALBUTEROL SO4 2.5/IPRATROPIUM 0.5 INH SOL 3 ML VIAL.NEB. NEB SCH ×2 (13:35→18:23)
[2021-09-13] MEDS ORDERED: predniSONE 10 MG TABLET (UD) PO SCH (16:15)
[2021-09-13] MEDS ORDERED: predniSONE 10 MG TABLET (UD) PO ONE (17:00)
[2021-09-13 17:28] LABS: ALBUMIN 3.8 g/dl (3.4-5.0); BLOOD UREA NITROGEN 20.6 mg/dL (7-18); HEMATOCRIT 31.9 % (32.4-45.2); HEMOGLOBIN 10.9 GM/dL (10.7-15.3); MCHC 34.2 g/dl (32.0-36.0); MEAN CELL VOLUME 73.1 fl (80-96); PLATELET COUNT 276 10^3/uL (134-434); RBC 4.36 M/mm3 (3.60-5.2); RDW 21.2 % (11.6-15.6); WHITE BLOOD COUNT 4.4 K/mm3 (4.0-10.0)
[2021-09-13 17:31] LABS: CREATININE 0.7 mg/dL (0.55-1.3)
[2021-09-13 17:33] LABS: BILIRUBIN,TOTAL 0.9 mg/dL (0.2-1); TOT PROT 8.1 g/dl (6.4-8.2)
[2021-09-13] MEDS: MELATONIN 5 MG TABLETS PO SCH (21:19)
[2021-09-13] MEDS: THIAMINE HCL 100 MG TABLET (FP) PO SCH (21:19)
[2021-09-14] MEDS: ALBUTEROL SO4 2.5/IPRATROPIUM 0.5 INH SOL 3 ML VIAL.NEB. NEB SCH ×5 (01:20→23:06)
[2021-09-14] MEDS ORDERED: methaDONE HCL 40 MG DISPERSABLE TABLET ONE (03:08)
[2021-09-14] MEDS ORDERED: methaDONE HCL 10 MG TABLET ONE (03:08)
[2021-09-14] MEDS: methaDONE 80 MG, methaDONE 20 MG PO SCH (06:21)
[2021-09-14] MEDS: ALBUTEROL SO4 HFA INHALER IH PRN (06:21)
[2021-09-14] MEDS: PRENATAL VITAMINS W/ FOLIC ACID TABLET (FP) PO SCH (09:47)
[2021-09-14] MEDS: BUDESONIDE/FORMETEROL FUMARATE 160/4.5 mcg INHALER IH SCH ×2 (09:47→21:05)
[2021-09-14] MEDS: hydrOXYzine PAMOATE 25 MG CAPSULE (FP) PO PRN ×2 (09:48→21:10)
[2021-09-14] MEDS: PANTOPRAZOLE 20 MG TABLET PO SCH (09:48)
[2021-09-14] MEDS: amLODIPine BESYLATE 10 MG TABLET (FP) PO SCH (09:48)
[2021-09-14] MEDS ORDERED: predniSONE 20 MG TABLET (UD) PO ONE (10:00)
[2021-09-14] MEDS ORDERED: CHOLECALCIFEROL (VIT D3) 1,000 UNIT (25 MCG) TABLET PO ONE (15:15)
[2021-09-14] MEDS: ASCORBIC ACID 500 MG TABLET (FP) PO SCH ×2 (16:05→21:05)
[2021-09-14] MEDS: THIAMINE HCL 100 MG TABLET (FP) PO SCH (21:03)
[2021-09-14] MEDS: MELATONIN 5 MG TABLETS PO SCH (21:05)
[2021-09-15] MEDS ORDERED: methaDONE HCL 10 MG TABLET ONE (03:58)
[2021-09-15] MEDS ORDERED: methaDONE HCL 40 MG DISPERSABLE TABLET ONE (03:58)
[2021-09-15] MEDS: methaDONE 80 MG, methaDONE 20 MG PO SCH (06:08)
[2021-09-15] MEDS: ALBUTEROL SO4 2.5/IPRATROPIUM 0.5 INH SOL 3 ML VIAL.NEB. NEB SCH ×4 (09:36→23:17)
[2021-09-15] MEDS ORDERED: predniSONE 10 MG TABLET (UD) PO ONE (10:00)
[2021-09-15] MEDS: PRENATAL VITAMINS W/ FOLIC ACID TABLET (FP) PO SCH (10:55)
[2021-09-15] MEDS: PANTOPRAZOLE 20 MG TABLET PO SCH (10:55)
[2021-09-15] MEDS: amLODIPine BESYLATE 10 MG TABLET (FP) PO SCH (10:55)
[2021-09-15] MEDS: BUDESONIDE/FORMETEROL FUMARATE 160/4.5 mcg INHALER IH SCH ×2 (10:56→23:16)
[2021-09-15] MEDS: ASCORBIC ACID 500 MG TABLET (FP) PO SCH ×2 (10:56→23:16)
[2021-09-15] MEDS: CHOLECALCIFEROL (VIT D3) 1,000 UNIT (25 MCG) TABLET PO SCH (10:58)
[2021-09-15] MEDS ORDERED: AZITHROMYCIN 250 MG TABLET PO ONE (11:37)
[2021-09-15] MEDS: THIAMINE HCL 100 MG TABLET (FP) PO SCH (23:16)
[2021-09-15] MEDS: MELATONIN 5 MG TABLETS PO SCH (23:16)
[2021-09-15] MEDS: hydrOXYzine PAMOATE 25 MG CAPSULE (FP) PO PRN (23:20)
[2021-09-16] MEDS ORDERED: methaDONE HCL 10 MG TABLET ONE (02:53)
[2021-09-16] MEDS ORDERED: methaDONE HCL 40 MG DISPERSABLE TABLET ONE (02:53)
[2021-09-16] MEDS: methaDONE 80 MG, methaDONE 20 MG PO SCH (06:06)
[2021-09-16] MEDS: hydrOXYzine PAMOATE 25 MG CAPSULE (FP) PO PRN ×2 (06:08→11:22)
[2021-09-16 08:00] VITALS: TEMP 98.2
[2021-09-16] MEDS ORDERED: AZITHROMYCIN 250 MG TABLET PO SCH (10:00)
[2021-09-16] MEDS: BUDESONIDE/FORMETEROL FUMARATE 160/4.5 mcg INHALER IH SCH (10:47)
[2021-09-16] MEDS: ASCORBIC ACID 500 MG TABLET (FP) PO SCH (10:47)
[2021-09-16] MEDS: CHOLECALCIFEROL (VIT D3) 1,000 UNIT (25 MCG) TABLET PO SCH (10:47)
[2021-09-16] MEDS: PANTOPRAZOLE 20 MG TABLET PO SCH (10:48)
[2021-09-16] MEDS: amLODIPine BESYLATE 10 MG TABLET (FP) PO SCH (10:48)
[2021-09-16] MEDS: PRENATAL VITAMINS W/ FOLIC ACID TABLET (FP) PO SCH (10:48)
[2021-09-16] MEDS: ALBUTEROL SO4 2.5/IPRATROPIUM 0.5 INH SOL 3 ML VIAL.NEB. NEB SCH (10:58)
[2021-09-16 11:02] VITALS: BP 136/80; PULSE 74
== END 2021-09-16 11:30 | disposition home or self-care (01) | DRG 895 ==
LOC: YASAS 21:08 → Y5N 21:09
PROVIDERS: ADMIT Allergy & Immunology; ATTEND Psychiatry & Neurology Pain Medicine
PROC: HZ42ZZZ Group Counseling for Substance Abuse Treatment, Cognitive-Behavioral (ICD-10-PCS; principal; 2021-09-03)
DX: F10.20 Alcohol dependence, uncomplicated (principal); U07.1 COVID-19; F11.20 Opioid dependence, uncomplicated; F14.20 Cocaine dependence, uncomplicated; J45.901 Unspecified asthma with (acute) exacerbation; F17.210 Nicotine dependence, cigarettes, uncomplicated; I11.0 Hypertensive heart disease with heart failure; I50.9 Heart failure, unspecified; K21.9 Gastro-esophageal reflux disease without esophagitis; B18.2 Chronic viral hepatitis C; R60.0 Localized edema; Z99.89 Dependence on other enabling machines and devices; Z88.8 Allergy status to other drugs, medicaments and biological substances; Z91.013 Allergy to seafood
CPT/HCPCS: 36415; 80053; 85027; 94640; C9803-CS; U0003; U0005

== ENCOUNTER 2021-09-15 13:29 | Emergency (ER) | payer OTHER ==
[2021-09-15 14:26] VITALS: BP 130/80; PULSE 78; TEMP 98.1; BMI 30.1
[2021-09-15] MEDS ORDERED: DEXAMETHASONE SOD PHOSPHATE 10 MG/1 ML VIAL IVPUSH ONE (15:26)
[2021-09-15] MEDS ORDERED: DEXAMETHASONE SOD PHOSPHATE 10 MG/1 ML VIAL ONE (16:07)
[2021-09-15] MEDS ORDERED: ALBUTEROL SO4 2.5/IPRATROPIUM 0.5 INH SOL 3 ML VIAL.NEB. NEB ONE (16:07)
[2021-09-15] MEDS: ALBUTEROL SO4 2.5/IPRATROPIUM 0.5 INH SOL 3 ML VIAL.NEB. NEB SCH ×2 (16:14→16:15)
[2021-09-15 17:22] LABS: BASO % 0.5 % (0-2.0); EOS % 0.4 % (0-4.5); HEMATOCRIT 33.1 % (32.4-45.2); HEMOGLOBIN 11.1 GM/dL (10.7-15.3); LYMPH % 28.9 % (8-40); MCH 24.5 pg (25.7-33.7); MCHC 33.4 g/dl (32.0-36.0); MEAN CELL VOLUME 73.1 fl (80-96); MEAN PLT VOLUME 9.3 fl (7.5-11.1); MONO % 7.4 % (3.8-10.2); NEUT % 62.8 % (42.8-82.8); PLATELET COUNT 273 10^3/uL (134-434); RBC 4.53 M/mm3 (3.60-5.2); RDW 21.8 % (11.6-15.6); WHITE BLOOD COUNT 4.8 K/mm3 (4.0-10.0)
[2021-09-15 17:37] LABS: CALCIUM 9.3 mg/dL (8.5-10.1)
[2021-09-15 17:38] LABS: ALBUMIN 3.9 g/dl (3.4-5.0); BLOOD UREA NITROGEN 22.2 mg/dL (7-18)
[2021-09-15 17:41] LABS: CREATININE 0.8 mg/dL (0.55-1.3)
[2021-09-15 17:42] LABS: TOT PROT 8.6 g/dl (6.4-8.2)
[2021-09-15 17:43] LABS: BILIRUBIN,TOTAL 0.4 mg/dL (0.2-1)
[2021-09-15] MEDS ORDERED: FUROSEMIDE 40 MG/4 ML INJECTABLE VIAL IVPUSH ONE (17:55)
[2021-09-15 19:45] LABS: ANISOCYTOSIS 2+; MACROCYTOSIS 1+; TARGET CELLS 1+
[2021-09-15 19:46] LABS: PLATELET ESTIMATE ADEQUATE
[2021-09-15] MEDS ORDERED: FUROSEMIDE 40 MG/4 ML INJECTABLE VIAL ONE (20:38)
== END 2021-09-15 21:13 | disposition short-term general hospital (02) ==
LOC: JER 13:29 → JERFT 13:29
PROC: 3E0F7GC Introduction of Other Therapeutic Substance into Respiratory Tract, Via Natural or Artificial Opening (ICD-10-PCS; principal; 2021-09-15)
PROC: 3E033GC Introduction of Other Therapeutic Substance into Peripheral Vein, Percutaneous Approach (ICD-10-PCS; 2021-09-15)
PROC: 3E033GC Introduction of Other Therapeutic Substance into Peripheral Vein, Percutaneous Approach (ICD-10-PCS; 2021-09-15)
DX: I50.9 Heart failure, unspecified (principal)
CPT/HCPCS: 36415; 71046-TC-FY; 80053; 83880; 84484; 85025; 93005; 93010; 94640; 96374; 96375; 99285-25; J1100